=== PATIENT | female | born 2000 | race Hispanic/Latino ===

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

== ENCOUNTER 2019-01-06 15:02 | Emergency (ER) | payer SELFPAY ==
[2019-01-06] MEDS ORDERED: NA CHLORIDE 0.9% 1,000 ML ONE (15:29)
[2019-01-06 15:30] LABS: Urine Blood NEGATIVE (NEG); Urine Glucose NEGATIVE (NEG); Urine Protein NEGATIVE (NEG); Urine Specific Gravity >1.030 (1.005-1.030); Urine pH 5.5 (5.0-7.0)
[2019-01-06 15:46] LABS: Absolute Lymphocytes (CBC) 1.9 K/uL (0.7-4.9); Basophils % 0.6 % (0-1.3); Hematocrit 32.1 % (36.0-45.0); Lymphocytes % 28.8 % (15.3-44.8); MPV 8.2 fL (7.6-11.3)
[2019-01-06] MEDS ORDERED: KETOROLAC 30 MG/ML INJ ONE (15:52)
[2019-01-06 16:19] LABS: ALT/SGPT 21 U/L (12-78); AST/SGOT 11 U/L (15-37); Albumin 3.8 g/dL (3.4-5.0); Alkaline Phosphatase 87 U/L (45-117); BUN Blood Urea Nitrogen 11 mg/dL (7-18); Bicarbonate 30 mmol/L (21-32); Bilirubin Direct 0.1 mg/dL (0-0.2); Bilirubin Total 0.3 mg/dL (0.2-1.0); Glucose Level 96 mg/dL (74-106); Lipase 140 U/L (73-393); Potassium 3.5 mmol/L (3.5-5.1); Protein, Total 7.7 g/dL (6.4-8.2); Sodium Level 141 mmol/L (136-145)
[2019-01-06 16:34] LABS: Urine Bacteria <20 /HPF (<20); Urine Culture Reflex Order REFLEXED; Urine RBC <5 /HPF (NONE SEEN)
--- NOTE | 2019-01-06 18:02 | RAD REPORT ---
EXAM DESCRIPTION: CT - Abdomen Pelvis W Contrast - 01/06/2019 5:50 pm CLINICAL HISTORY: ABD PAIN COMPARISON: CT study December 29 TECHNIQUE: Biphasic, helical CT imaging of the abdomen and pelvis was performed following 100 ml non -ionic IV contrast. Oral contrast was given. All CT scans are performed using dose optimization technique as appropriate and may include automated exposure control or mA/KV adjustment according to patient size. FINDINGS: No suspicious findings in the lung bases. The liver, spleen, and pancreas show no suspicious findings. Gallbladder and biliary tree are also wi thout suspicious finding. Symmetric renal function is seen with no hydronephrosis or suspicious renal mass. No pyelonephritis o r acute parenchymal process. No bladder abnormalities. No adrenal abnormalities. Uterus and ovaries s how no suspicious findings. Physiologic quantity of free fluid is seen in the cul de sac. Ovarian det ail is limited. No dilated bowel loops or bowel wall thickening. Appendix is opacified by contrast proximally. Distal most aspect is difficult to visualize. Acute appendicitis is doubtful. Sigmoid is redundant reaching the anterior mid abdomen level. No free air or pneumatosis. No acute inflammatory stranding. No her scott, mass or bulky lymphadenopathy. No suspicious bony findings. IMPRESSION: No bowel obstruction, free air or surgically emergent finding. Proximal appendix is opac ified by contrast with the distal aspect not well visualized. Acute appendicitis is not suspected. No acute finding. Uterus and ovaries within normal limits for age. Ovarian detail is somewhat limited.
--- NOTE | 2019-01-06 18:23 | ER ---
Nurse's Notes [facility] Name: Florencia No Age: 18 yrs Sex: Female : 2000 Arrival Date: 01/06/2019 Time: 15:05 Bed 28 Private MD: Diagnosis: Urinary tract infection, site not specified;Unspecified abdominal pain Presentation: 01/06 15:08 Presenting complaint: Patient states: intermittent pain to umbilicus area that began ss last night, and is getting worse. Denies fever, N/V/D. Transition of care: patient was not received from another setting of care. Onset of symptoms was January 05, 2019. Risk Assessment: Do you want to hurt yourself or someone else? Patient reports no desire to harm self or others. Initial Sepsis Screen: Does the patient meet any 2 criteria? No. Patient's initial sepsis screen is negative. Does the patient have a suspected source of infection? No. Patient's initial sepsis screen is negative. Care prior to arrival: None. 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 - Social history:: Smoking status: Patient/guardian denies using tobacco. - Ebola Screening: : Patient denies exposure to infectious person Patient denies travel to an Ebola-affected area in the 21 days before illness onset. Screenin:46 Abuse screen: Denies threats or abuse. Nutritional screening: No deficits noted. tr5 Tuberculosis screening: No symptoms or risk factors identified. Fall Risk None identified. Assessment: 15:46 General: Appears uncomfortable. Pain: Complains of pain in umbilical area Pain tr5 currently is 8 out of 10 on a pain scale. Quality of pain is described as crampy, Pain began 1 day ago. Is intermittent. Neuro: Level of Consciousness is awake, alert, obeys commands, Oriented to person, place, time, Informatics Scientist are equal bilaterally Moves all extremities. Cardiovascular: Heart tones present Capillary refill < 3 seconds Pulses are all present. Edema is absent. Respiratory: Airway is patent Respiratory effort is even, unlabored, Respiratory pattern is regular, symmetrical. GI: Bowel sounds present X 4 quads. Abd is soft and non tender X 4 quads. Reports upper abdominal pain. : No signs and/or symptoms were reported regarding the genitourinary system. EENT: No signs and/or symptoms were reported regarding the EENT system. Derm: No signs and/or symptoms reported regarding the dermatologic system. Musculoskeletal: No signs and/or symptoms reported regarding the musculoskeletal system. 17:00 Reassessment: Patient appears in no apparent distress at this time. Patient and/or tr5 family updated on plan of care and expected duration. Pain level reassessed. Patient is alert, oriented x 3, equal unlabored respirations, skin warm/dry/pink. Vital Signs: 15:09 BP 124 / 72; Pulse 96; Resp 16; Temp 97.7(TE); Pulse Ox 100% on R/A; Weight 80.74 kg; ss Height 5 ft. 3 in. (160.02 cm); Pain 8/10; 15:52 BP 97 / 69; Pulse 98; Resp 17; Temp 98.6; Pulse Ox 100% on R/A; mh5 16:54 BP 102 / 64; Pulse 75; Resp 17; Temp 98.6(O); Pulse Ox 98% on R/A; mh5 18:24 BP 98 / 60; Pulse 87; Resp 16; Pulse Ox 98% on R/A; mh5 15:09 Body Mass Index 31.53 (80.74 kg, 160.02 cm) ED Course: 15:05 Patient arrived in ED. mr 15:09 Triage completed. ss 15:09 Arm band placed on right wrist. ss 15:13 Serge Ambrose NP is PHCP. pm1 15:13 Kyle Lee MD is Attending Physician. pm1 15:27 Pawel Hernandez, SHOSHANA is Primary Nurse. tr5 15:46 Bed in low position. Call light in reach. Side rails up X 1. tr5 15:50 Initial lab(s) drawn, by me, sent to lab. Urine collected: clean catch specimen, mh5 cloudy. Inserted saline lock: 22 gauge in right antecubital area, using aseptic technique. 15:51 Urine Microscopic Only Sent. mh5 15:51 Basic Metabolic Panel Sent. mh5 15:51 Creatinine for Radiology Sent. 5 15:51 Hepatic Function Sent. 5 15:51 Lipase Sent. mh5 17:56 CT Abd/Pelvis - PO and IV Contrast In Process Unspecified. EDMS 18:43 No provider procedures requiring assistance completed. IV discontinued. tr5 Administered Medications: 15:41 Drug: NS 0.9% 1000 ml Route: IV; Rate: 1000 ml; Site: right antecubital; tr5 16:50 Follow up: IV Status: Completed infusion; IV Intake: 1000ml tr5 15:42 CANCELLED (Duplicate Order): NS 0.9% 1000 ml IV at 1000 ml once pm1 15:55 Drug: TORadol - Ketorolac 15 mg Route: IVP; Site: right antecubital; tr5 16:50 Follow up: Response: Pain is decreased tr5 18:34 Drug: Rocephin 1 grams Route: IV; Rate: calculated rate; Site: right antecubital; tr5 18:42 Follow up: IV Status: Completed infusion; IV Intake: 50ml tr5 18:42 Drug: [place] 5 mg-325 mg 1 tabs {Note: RASS:0.} Route: PO; tr5 18:43 Follow up: Response: Medication administered at discharge. tr5 Intake: 16:50 IV: 1000ml; Total: 1000ml. tr5 18:42 IV: 50ml; Total: 1050ml. tr5 Outcome: 18:23 Discharge ordered by . pm1 18:43 Discharged to home ambulatory. tr5 18:43 Condition: stable 18:43 Discharge instructions given to patient, family, Instructed on discharge instructions, follow up and referral plans. Demonstrated understanding of instructions, follow-up care, medications, Prescriptions given X 2. 18:45 Patient left the ED. tr5 Signatures: Dispatcher [employer] [facility] Melida Charles Shelby, RN RN ss Marinas, Patrick, NP SENIOR SUPPLY CHAIN ANALYST 1 Gricelda Donnelly [facility] Pawel Hernandez RN RN tr5
--- NOTE | 2019-01-06 18:24 | EDPHYS ---
Physician Documentation [facility] Name: Florencia No Age: 18 yrs Sex: Female : 2000 Arrival Date: 01/06/2019 Time: 15:05 Bed 28 Private MD: ED Physician Kyle Lee HPI: 01/06 15:42 This 18 yrs old Female presents to ER via Ambulatory with complaints of pm1 Abdominal Pain. 15:42 The patient presents with abdominal pain in the periumbilical area. Onset: The pm1 symptoms/episode began/occurred 11 day(s) ago. The symptoms do not radiate. Associated signs and symptoms: Pertinent positives: Dysuria today, Pertinent negatives: nausea, vomiting, and diarrhea, chest pain, fever, shortness of breath. The symptoms are described as sharp. Modifying factors: The symptoms are alleviated by nothing, the symptoms are aggravated by nothing. Severity of pain: in the emergency department the pain is actually worse. The patient has been recently seen at the [facility] Emergency Department, for similar complaints labs were performed, CT scan was performed, was given a prescription for antibiotics, 12/29. 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 - Social history:: Smoking status: Patient/guardian denies using tobacco. - Ebola Screening: : Patient denies exposure to infectious person Patient denies travel to an Ebola-affected area in the 21 days before illness onset. ROS: 15:42 Constitutional: Negative for fever, chills, and weight loss, Eyes: Negative for injury, pm1 pain, redness, and discharge, ENT: Negative for injury, pain, and discharge, Neck: Negative for injury, pain, and swelling, Cardiovascular: Negative for chest pain, palpitations, and edema, Respiratory: Negative for shortness of breath, cough, wheezing, and pleuritic chest pain. 15:42 Back: Negative for injury and pain, MS/Extremity: Negative for injury and deformity, Skin: Negative for injury, rash, and discoloration, Neuro: Negative for headache, weakness, numbness, tingling, and seizure. 15:42 Abdomen/GI: Positive for abdominal pain, Negative for nausea, vomiting, and diarrhea, constipation. 15:42 : Positive for burning with urination. Exam: 15:42 Constitutional: This is a well developed, well nourished patient who is awake, alert, pm1 and in no acute distress. Head/Face: Normocephalic, atraumatic. Neck: Trachea midline, no thyromegaly or masses palpated, and no cervical lymphadenopathy. Supple, full range of motion without nuchal rigidity, or vertebral point tenderness. No Meningismus. Chest/axilla: Normal chest wall appearance and motion. Nontender with no deformity. No lesions are appreciated. Cardiovascular: Regular rate and rhythm with a normal S1 and S2. No gallops, murmurs, or rubs. Normal PMI, no JVD. No pulse deficits. Respiratory: Lungs have equal breath sounds bilaterally, clear to auscultation and percussion. No rales, rhonchi or wheezes noted. No increased work of breathing, no retractions or nasal flaring. 15:42 Back: No spinal tenderness. No costovertebral tenderness. Full range of motion. Skin: Warm, dry with normal turgor. Normal color with no rashes, no lesions, and no evidence of cellulitis. MS/ Extremity: Pulses equal, no cyanosis. Neurovascular intact. Full, normal range of motion. 15:42 Abdomen/GI: Inspection: abdomen appears normal, Bowel sounds: normal, Palpation: soft, mild abdominal tenderness, in the umbilical area, mass, is not appreciated, rebound tenderness, is not appreciated. 15:42 Neuro: Orientation: is normal, Motor: is normal, moves all fours. Vital Signs: 15:09 BP 124 / 72; Pulse 96; Resp 16; Temp 97.7(TE); Pulse Ox 100% on R/A; Weight 80.74 kg; ss Height 5 ft. 3 in. (160.02 cm); Pain 8/10; 15:52 BP 97 / 69; Pulse 98; Resp 17; Temp 98.6; Pulse Ox 100% on R/A; mh5 16:54 BP 102 / 64; Pulse 75; Resp 17; Temp 98.6(O); Pulse Ox 98% on R/A; mh5 18:24 BP 98 / 60; Pulse 87; Resp 16; Pulse Ox 98% on R/A; mh5 15:09 Body Mass Index 31.53 (80.74 kg, 160.02 cm) ss MDM: 15:13 Patient medically screened. pm1 17:08 Data reviewed: vital signs. Data interpreted: Pulse oximetry: on room air is 98 %. pm1 Interpretation: normal. 18:05 Counseling: I had a detailed discussion with the patient and/or guardian regarding: the pm1 historical points, exam findings, and any diagnostic results supporting the discharge/admit diagnosis, lab results, radiology results, the need for outpatient follow up, to return to the emergency department if symptoms worsen or persist or if there are any questions or concerns that arise at home. 18:22 Differential diagnosis: appendicitis, cholecystitis, Cholelithiasis, pancreatitis, pm1 Pyelonephritis, urinary tract infection. 18:22 ED course: Patient previously given prescription for bactrim DS for 5 days. Likely pm1 therapy not long enough to treat UTI. Will give patient Rocephin here in ER and discharge home with Macrobid based on culture result from prior ER visit. Will follow up on culture from today. 18:22 Special discussion: Based on the patient's Hx, exam, and Dx evaluation, there is no pm1 indication for emergent surgery or inpatient Tx. It is understood by the patient/guardian that if the Sx's persist or worsen they need to return immediately for re-evaluation. 01/06 15:16 Order name: Basic Metabolic Panel; Complete Time: 16:26 pm1 01/06 15:16 Order name: CBC with Diff; Complete Time: 15:55 pm1 01/06 15:16 Order name: Creatinine for Radiology; Complete Time: 16:08 pm1 01/06 15:16 Order name: Hepatic Function; Complete Time: 16:26 pm1 01/06 15:16 Order name: Lipase; Complete Time: 16:26 pm1 01/06 15:28 Order name: Urine Dipstick--Ancillary (enter results); Complete Time: 15:41 bd 01/06 15:24 Order name: CT Abd/Pelvis - PO and IV Contrast; Complete Time: 18:22 pm1 01/06 15:28 Order name: Urine --Ancillary (enter results); Complete Time: 15:41 bd 01/06 15:38 Order name: Urine Microscopic Only; Complete Time: 16:35 tr5 01/06 16:36 Order name: Urine Culture EDNH 01/06 15:16 Order name: IV Saline Lock; Complete Time: 15:28 pm1 01/06 15:16 Order name: Labs collected and sent; Complete Time: 15:28 pm1 01/06 15:16 Order name: Urine Dipstick-Ancillary (obtain specimen); Complete Time: 15:51 pm1 01/06 15:16 Order name: Urine Test (obtain specimen); Complete Time: 15:51 pm1 Administered Medications: 15:41 Drug: NS 0.9% 1000 ml Route: IV; Rate: 1000 ml; Site: right antecubital; tr5 16:50 Follow up: IV Status: Completed infusion; IV Intake: 1000ml tr5 15:42 CANCELLED (Duplicate Order): NS 0.9% 1000 ml IV at 1000 ml once pm1 15:55 Drug: TORadol - Ketorolac 15 mg Route: IVP; Site: right antecubital; tr5 16:50 Follow up: Response: Pain is decreased tr5 18:34 Drug: Rocephin 1 grams Route: IV; Rate: calculated rate; Site: right antecubital; tr5 18:42 Follow up: IV Status: Completed infusion; IV Intake: 50ml tr5 18:42 Drug: [place] 5 mg-325 mg 1 tabs {Note: RASS:0.} Route: PO; tr5 18:43 Follow up: Response: Medication administered at discharge. tr5 Disposition: 21:26 Co-signature as Attending Physician, Kyle Lee MD I agree with the assessment and wa plan of care. Disposition: 01/06/19 18:23 Discharged to Home. Impression: Urinary tract infection, site not specified, Unspecified abdominal pain. - Condition is Stable. - Discharge Instructions: Abdominal Pain, Adult, Urinary Tract Infection, Adult. - Prescriptions for Macrobid 100 mg Oral Capsule - take 1 capsule by ORAL route every 12 hours for 10 days; 20 capsule. Tramadol 50 mg Oral Tablet - take 1 tablet by ORAL route every 8 hours as needed; 12 tablet. - Medication Reconciliation Form, Thank You Letter, Antibiotic Education, Prescription Opioid Use, Work release form form. - Follow up: Emergency Department; When: As needed; Reason: Worsening of condition. Follow up: Private Physician; When: 2 - 3 days; Reason: Recheck today's complaints, Continuance of care, Re-evaluation by your physician. - Problem is new. - Symptoms have improved. Signatures: Dispatcher [employer] EDMS Sarai Reid RN RN ss Serge Ambrose, PIE BAKER PIE BAKER pm1 Kyle Lee MD MD wa Rodriguez, Tommie, RN RN tr5 Corrections: (The following items were deleted from the chart) 15:42 15:42 NS 0.9% 1000 ml IV at 1000 ml once ordered. pm1 pm1 18:45 18:23 01/06/2019 18:23 Discharged to Home. Impression: Urinary tract infection, site tr5 not specified; Unspecified abdominal pain. Condition is Stable. Forms are Medication Reconciliation Form, Thank You Letter, Antibiotic Education, Prescription Opioid Use. Follow up: Emergency Department; When: As needed; Reason: Worsening of condition. Follow up: Private Physician; When: 2 - 3 days; Reason: Recheck today's complaints, Continuance of care, Re-evaluation by your physician. Problem is new. Symptoms have improved. pm1
[2019-01-06] MEDS ORDERED: CEFTRIAXONE/SWI 1gm 1 GM/10 ML SYR ONE (18:29)
[2019-01-06] MEDS ORDERED: HYDROCODONE/APAP 5/325 MG TAB ONE (18:37)
[2019-01-06 19:26] VITALS: TEMP 98.6
[2019-01-06 19:27] VITALS: O2SAT 98
[2019-01-06 19:29] VITALS: BP 98/60
== END 2019-01-06 18:45 | disposition home or self-care (01) ==
LOC: ER 15:02
DX: N39.0 Urinary tract infection, site not specified (principal)
CPT/HCPCS: 36415; 74177; 80048; 80076; 81003; 81015; 81025; 83690; 85025; 87086; 87088; 96361; 96374; 96375; 99284; J0696; J7030; Q9967

== ENCOUNTER 2019-05-21 | Emergency (ER) | payer SELFPAY ==
--- OUTSIDE RECORDS SUMMARY | 2019-05-21 22:04 | XMS REPORT ---
:2000 [facility] Address [address] [place] [place] [address] Care Team Providers Name Role Phone Unavailable Unavailable Unavailable Problems This patient has no known problems. Allergies, Adverse Reactions, Alerts This patient has no known allergies or adverse reactions. Medications This patient has no known medications.
--- OUTSIDE RECORDS SUMMARY | 2019-05-21 22:04 | XMS REPORT | Summary of Care ---
:2000 Author Organization [facility] - Health Address [address] [place] [address] Care Team Providers Name Role Phone Pcp, Patient Does Not Have A Primary Care Provider Encounter Details Date Type Department Care Team Description 04/25/2019 Orders Only [facility] Doctor Unassigned, No [address] [facility] [place] [address] [address] [place] [address] Allergies No Known Allergiesdocumented as of this encounter (statuses as of 04/25/2019) Medications Medication Sig Dispensed Refills Start Date End Date Status codeine-guaifenesin Take 10 mL by mouth 300 mL 0 12/18/2018 Active 10-100 mg/5 mL every 6 (six) hours solutionIndications: as needed for Persistent cough for Cough. 3 weeks or longer, Acute bronchitis, unspecified organism albuterol 90 Inhale 2 Puffs 8.5 g 0 12/18/2018 Active mcg/actuation every 6 (six) hours inhalerIndications: as needed for Persistent cough for Wheezing, Shortness 3 weeks or longer, of Breath or Chest Acute bronchitis, tightness. unspecified organism documented as of this encounter (statuses as of 04/25/2019) Active Problems No known active problemsdocumented as of this encounter (statuses as of 2019) Social History Tobacco Use Types Packs/Day Years Used Date Never Assessed Sex Assigned at Date Recorded Not on file Job Start Date Occupation Industry Not on file Not on file Not on file Travel History Travel Start Travel End No recent travel history available. documented as of this encounter Last Filed Vital Signs Not on filedocumented in this encounter Plan of Treatment Health Maintenance Due Date Last Done Comments VARICELLA VACCINES (1 of 2 - 2-dose 09/28/2000 childhood series) MENINGOCOCCAL B VACCINES (1 of 2 - 09/28/2009 Risk Bexsero 2-dose series) DTaP,Tdap,and Td Vaccines (1 - 09/28/2010 Tdap) HPV VACCINES (1 - Female 2-dose 09/28/2010 series) WELL CARE VISIT: 12-21 YEARS 2011 (yearly) CHLAMYDIA SCREENING 2015 INFLUENZA VACCINE (#1) 2018 MENINGOCOCCAL VACCINE Aged Out No longer eligible based on patient's age to complete this topic PNEUMOCOCCAL 0-64 YEARS COMBINED Aged Out No longer eligible based on SERIES patient's age to complete this topic documented as of this encounter Procedures Procedure Name Priority Date/Time Associated Diagnosis Comments CONSENT/REFUSAL FOR Routine 04/25/2019 4:38 PM 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
--- OUTSIDE RECORDS SUMMARY | 2019-05-21 22:04 | XMS REPORT | Summary of Care ---
:2000 Author Organization [facility] Address [address] [place] [id number] Care Team Providers Name Role Phone Pcp, Patient Does Not Have A Primary Care Provider Reason for Referral (MACIE) Status Reason Specialty Diagnoses / Referred By Referred To Procedures Contact Contact New Request SENAIT-SURGERY Diagnoses Bilateral mastodynia Keanu Mcdonald, Procedures Discharge Follow-Up: Specialty Service SENAIT-SURGERY; 3-5 Days MD Willis [address] [address] Reason for Visit Reason Comments Skin Problem Auth/Cert Status Reason Specialty Diagnoses / Referred By Referred To Procedures Contact Contact [facility] [address] [place] [address] [place] [address] Encounter Details Date Type Department Care Team Description 04/25/2019 Emergency [facility]-Emergency Keanu Mcdonald, Bilateral mastodynia Department (Primary Dx) [address] [place] [address] [address] [place] [address] [facility] [phone] [place], [place] [id number] Allergies No Known Allergiesdocumented as of this [...] or Chest Acute bronchitis, tightness. unspecified organism naproxen sodium 550 Take 1 tablet by 14 tablet 0 04/25/2019 Active mg tabletIndications: mouth 2 (two) times Bilateral mastodynia daily with meals. documented as of this encounter (statuses as [...] of this encounter Last Filed Vital Signs Vital Sign Reading Time Taken Comments Blood Pressure 132/77 04/25/2019 4:48 PM VALVE TESTER Pulse 97 04/25/2019 4:48 PM VALVE TESTER Temperature 37.1 C (98.7 F) 04/25/2019 4:48 PM VALVE TESTER Respiratory Rate 16 04/25/2019 4:48 PM VALVE TESTER Oxygen Saturation 99% 04/25/2019 4:48 PM VALVE TESTER Inhaled Oxygen Concentration - - Weight 72.6 kg (160 lb) 04/25/2019 4:48 PM VALVE TESTER Height 160 cm (5' 3") 04/25/2019 4:48 PM VALVE TESTER Body Mass Index 28.34 04/25/2019 4:48 PM VALVE TESTER documented in this encounter Discharge Instructions Keanu Campos MD - 04/25/2019 DIAGNOSIS Diagnoses that have been ruled out: None Diagnoses that are still under consideration: None Final diagnoses: Bilateral mastodynia NO LIFE-THREATENING FINDINGS ON TODAY'S EXAM. PROCEDURES IN THE ER TODAY: No orders of the defined types were placed in this encounter. MEDICATIONS ADMINISTERED IN THE ER TODAY AND DISCHARGE MEDICATIONS: Orders Placed This Encounter Medications naproxen sodium 550 mg tablet FOLLOW-UP RECOMMENDATIONS: RECOMMEND FOLLOW-UP WITH YOUR PRIMARY CARE PROVIDER OR BREAST SURGERY CLINIC, [facility] IN 2-5DAYS, DISCUSSED MAY FOLLOW-UP WITH A PROVIDER OF YOUR CHOICE, SUCH : 1. A PHYSICIAN OF YOUR CHOICE 2. [facility], . LOCATIONS IN [facility] 3. [facility], [address] [place], [place]; OR, IF YOU WISH TO FOLLOW-UP WITHIN THE [facility], MAY TRY THESE OPTIONS (CLINIC APPOINTMENTS AVAILABLE ON VQCN-DG-IFOR BASIS): 1. SCHEDULE AN APPOINTMENT ONLINE AT [email or web address] 2. OR CALL THE [facility] AT OR 3. OR CALL YOUR [facility] PHYSICIAN'S OFFICE DIRECTLY IF YOU ARE ALREADY AN ESTABLISHED [facility] PATIENT. RETURN TO ER FOR WORSENING OF SYMPTOMS documented in this encounter Plan of Treatment Health [...] Procedure Name Priority Date/Time Associated Diagnosis Comments NOTICE OF PRIVACY Routine 04/25/2019 4:39 PM VALVE TESTER PRACTICES documented in this encounter Results Not on filedocumented in this encounter Visit Diagnoses Diagnosis Bilateral mastodynia - Primary documented in this encounter
--- NOTE | 2019-05-21 22:53 | ER ---
Nurse's Notes [facility] Name: Florencia No Age: 18 yrs Sex: Female : 2000 Arrival Date: 05/21/2019 Time: 22:04 Bed 23 Private MD: Diagnosis: Rash and other nonspecific skin eruption Presentation: 05/20 22:17 Chief complaint: Patient states: some kind of rash to breast worse on the left than the bb right pt has tried multiple otc topical agents with no effect pt states rash is itchy but not painful. Coronavirus screen: The patient has NOT traveled to a country currently being monitored by the [facility] within the last 14 days. Proceed with normal triage procedures. Ebola Screen: No symptoms or risks identified at this time. Initial Sepsis Screen: Does the patient meet any 2 criteria? No. Patient's initial sepsis screen is negative. Does the patient have a suspected source of infection? No. Patient's initial sepsis screen is negative. Risk Assessment: Do you want to hurt yourself or someone else? Patient reports no desire to harm self or others. Onset of symptoms was May 14, 2019. 22:17 Method Of Arrival: Ambulatory bb 22:17 Acuity: BRUCE 4 bb Triage Assessment: 22:54 General: Appears in no apparent distress. Behavior is calm, cooperative, appropriate vc for age. Pain: Complains of pain in chest. 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 - Social history:: Smoking status: unknown. Screenin:53 Abuse screen: Denies threats or abuse. Nutritional screening: No deficits noted. vc Tuberculosis screening: No symptoms or risk factors identified. Fall Risk None identified. Assessment: 22:54 General: Appears in no apparent distress. uncomfortable, Behavior is cooperative, vc appropriate for age, anxious. Pain: Complains of pain in chest. Neuro: Level of Consciousness is awake, alert, obeys commands, Oriented to person, place, time, situation, Appropriate for age. Cardiovascular: Capillary refill < 3 seconds Patient's skin is warm and dry. Respiratory: Airway is patent Respiratory effort is even, unlabored, Respiratory pattern is regular, symmetrical. GI: No signs and/or symptoms were reported involving the gastrointestinal system. : EENT: No signs and/or symptoms were reported regarding the EENT system. Derm: Rash noted that is itchy, on right breast and left breast. 23:01 Reassessment: chaperoned provider for breast exam. vc Vital Signs: 22:17 BP 119 / 78; Pulse 98; Resp 16 S; Temp 98.7(O); Pulse Ox 100% on R/A; Weight 72.57 kg bb (R); Height 5 ft. 3 in. (160.02 cm) (R); Pain 0/10; 22:17 Body Mass Index 28.34 (72.57 kg, 160.02 cm) bb ED Course: 22:04 Patient arrived in ED. cl3 22:20 Triage completed. bb 22:20 Arm band placed on Patient placed in an exam room, on a stretcher, on pulse oximetry. bb 22:27 Esa Mcbride PA is PHCP. [facility] 22:27 John Malik MD is Attending Physician. [facility] 22:30 Nina Jerez, SHOSHANA is Primary Nurse. vc 22:54 Bed in low position. Call light in reach. vc 23:01 No provider procedures requiring assistance completed. Patient did not have IV access vc during this emergency room visit. Administered Medications: No medications were administered Outcome: 22:52 Discharge ordered by . [facility] 23:01 Discharged to home ambulatory. vc 23:01 Condition: good 23:01 Discharge instructions given to patient, Instructed on discharge instructions, follow up and referral plans. medication usage, Demonstrated understanding of instructions, follow-up care, medications. 23:06 Patient left the ED. vc Signatures: Esa Mcbride PA PA jmm Ballard, Brenda, RN RN bb Lewis, Charde 3 Nina Jerez RN RN vc
--- NOTE | 2019-05-21 22:53 | EDPHYS ---
Physician Documentation [facility] Name: Florencia No Age: 18 yrs Sex: Female : 2000 Arrival Date: 05/21/2019 Time: 22:04 Bed 23 Private MD: ED Physician John Malik HPI: 05/20 22:49 This 18 yrs old Female presents to ER via Ambulatory with complaints of Breast jmm Problem. 22:49 The patient's rash thought to be caused by an unknown cause. The rash is located on the jmm chest. Onset: The symptoms/episode began/occurred gradually, 4 day(s) ago. Associated signs and symptoms: Pertinent positives: itching, Pertinent negatives: fever, Pain swelling of lips, swelling of throat, swelling of tongue, vomiting. This is a 18 year old female with no chronic medical conditions that presents to the ED with complaints of rash to her breasts. Patient denies pain but complains of itch. Patient has used otc creams with no relief. Patient denies fever. . 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 - Social history:: Smoking status: unknown. ROS: 22:49 Constitutional: Negative for fever, chills, and weight loss, Cardiovascular: Negative jmm for chest pain, palpitations, and edema, Respiratory: Negative for shortness of breath, cough, wheezing, and pleuritic chest pain. 22:49 Skin: Positive for rash. 22:49 All other systems are negative. Exam: 22:49 Constitutional: This is a well developed, well nourished patient who is awake, alert, jmm and in no acute distress. Head/Face: atraumatic. Eyes: EOMI, no conjunctival erythema appreciated ENT: Moist Mucus Membranes Neck: Trachea midline, Supple 22:49 Cardiovascular: Regular rate and rhythm. No edema appreciated Respiratory: Normal respirations, no respiratory distress appreciated Abdomen/GI: Non distended, soft Back: Normal ROM 22:49 Chest/axilla: Breasts: rash, that is moderate, of the right breast. 22:49 Skin: on the chest. 22:49 Neuro: Orientation: is normal, Mentation: is normal, Memory: is normal. 22:49 Psych: Behavior/mood is pleasant, cooperative. Vital Signs: 22:17 BP 119 / 78; Pulse 98; Resp 16 S; Temp 98.7(O); Pulse Ox 100% on R/A; Weight 72.57 kg bb (R); Height 5 ft. 3 in. (160.02 cm) (R); Pain 0/10; 22:17 Body Mass Index 28.34 (72.57 kg, 160.02 cm) bb MDM: 22:29 Patient medically screened. [facility] 22:51 Data reviewed: vital signs, nurses notes. Counseling: I had a detailed discussion with nini the patient and/or guardian regarding: the historical points, exam findings, and any diagnostic results supporting the discharge/admit diagnosis, the need for outpatient follow up, to return to the emergency department if symptoms worsen or persist or if there are any questions or concerns that arise at home. ED course: Patient is alert and non toxic in appearance in the ED. Patient advised to follow up with derm for further evaluation. Patient understood and agrees with the plan of care. . Administered Medications: No medications were administered Disposition: 05/21 07:47 Co-signature as Attending Physician, John Malik MD I agree with the assessment and [facility] plan of care. Disposition: 05/21/19 22:52 Discharged to Home. Impression: Rash and other nonspecific skin eruption. - Condition is Stable. - Discharge Instructions: Rash, Body Ringworm. - Prescriptions for Clotrimazole 1 % Topical Cream - Apply to affected area 1 application by TOPICAL route every 12 hours; 15 gram. - Medication Reconciliation Form, Thank You Letter, Antibiotic Education, Prescription Opioid Use, Work release form form. - Follow up: Private Physician; When: 2 - 3 days; Reason: Recheck today's complaints, Continuance of care, Re-evaluation by your physician. Signatures: John Malik MD MD cha Mickail, Joel, PA PA jmm Ballard, Brenda, RN RN Nina Colon RN RN vc Corrections: (The following items were deleted from the chart) 05/20 23:06 22:52 05/21/2019 22:52 Discharged to Home. Impression: Rash and other nonspecific skin vc eruption. Condition is Stable. Forms are Medication Reconciliation Form, Thank You Letter, Antibiotic Education, Prescription Opioid Use. Follow up: Private Physician; When: 2 - 3 days; Reason: Recheck today's complaints, Continuance of care, Re-evaluation by your physician. nini
== END 2019-05-21 23:06 | disposition home or self-care (01) ==
DX: R21 Rash and other nonspecific skin eruption (principal)
CPT/HCPCS: 99283

== ENCOUNTER 2019-06-20 19:28 | Emergency (ER) | payer SELFPAY ==
--- OUTSIDE RECORDS SUMMARY | 2019-06-20 19:30 | XMS REPORT ---
:2000 Author Organization [facility] t Address [address] [place] [address] Care Team Providers Name Role Phone Unavailable Unavailable Unavailable Problems This patient has no known problems. Allergies, Adverse Reactions, Alerts This patient has no known allergies or adverse reactions. Medications This patient has no known medications.
[2019-06-20 20:25] LABS: Absolute Lymphocytes (CBC) 1.9 K/uL (0.7-4.9); Basophils % 0.4 % (0-1.3); Hematocrit 34.1 % (36.0-45.0); Lymphocytes % 27.2 % (15.3-44.8); MPV 8.8 fL (7.6-11.3); RBC Red Blood Cell Count 4.54 M/uL (3.86-4.86)
[2019-06-20 20:38] LABS: Urine Bacteria <20 /HPF (<20); Urine RBC <5 /HPF (NONE SEEN)
[2019-06-20 20:39] LABS: Urine Blood NEGATIVE (NEG); Urine Glucose NEGATIVE (NEG); Urine Protein NEGATIVE (NEG); Urine Specific Gravity 1.025 (1.005-1.030); Urine pH 7.5 (5.0-7.0)
[2019-06-20 20:39] LABS: Urine Culture Reflex Order REFLEXED; Urine Mucus 2+ /HPF (NONE SEEN)
[2019-06-20 20:50] LABS: ALT/SGPT 19 U/L (12-78); AST/SGOT 9 U/L (15-37); Alkaline Phosphatase 86 U/L (45-117); BUN Blood Urea Nitrogen 9 mg/dL (7-18); Bicarbonate 25 mmol/L (21-32); Bilirubin Direct < 0.1 mg/dL (0-0.2); Bilirubin Total 0.3 mg/dL (0.2-1.0); Glucose Level 84 mg/dL (74-106); Lipase 158 U/L (73-393); Potassium 3.9 mmol/L (3.5-5.1); Protein, Total 7.8 g/dL (6.4-8.2); Sodium Level 139 mmol/L (136-145)
--- NOTE | 2019-06-20 20:58 | RAD REPORT ---
EXAM DESCRIPTION: US - Abdomen Exam Limited - 06/20/2019 8:49 pm CLINICAL HISTORY: Abdominal pain. COMPARISON: None. FINDINGS: The gallbladder wall is not thickened. A gallstone is not seen. The biliary tree is normal caliber. IMPRESSION: Unremarkable gallbladder ultrasound.
--- NOTE | 2019-06-20 21:48 | RAD REPORT ---
EXAM DESCRIPTION: CT - Abdomen Pelvis W Contrast - 06/20/2019 9:29 pm CLINICAL HISTORY: Abdominal pain COMPARISON: 2018 TECHNIQUE: Computed axial tomography of the abdomen pelvis was obtained. 100 cc Isovue-300 was admin istered intravenously. Oral contrast was not requested which limits evaluation of bowel. All CT scans are performed using dose optimization technique as appropriate and may include automated exposure control or mA/KV adjustment according to patient size. FINDINGS: The liver, spleen, pancreas, adrenal and kidneys appear unremarkable. There is no evidence of diverticulitis. Normal appendix 24 millimeter left ovarian cyst without significant free fluid IMPRESSION: 24 millimeter left ovarian cyst without significant free fluid
--- NOTE | 2019-06-20 21:56 | EDPHYS ---
Physician Documentation [facility] Name: Florencia No Age: 18 yrs Sex: Female : 2000 Arrival Date: 06/20/2019 Time: 19:30 Bed 26 Private MD: ED Physician Gabriel John HPI: 06/19 20:05 This 18 yrs old Female presents to ER via Ambulatory with complaints of cp Abdominal Pain. 20:05 The patient presents with abdominal pain in the right upper quadrant. Onset: The cp symptoms/episode began/occurred 1 week(s) ago. The symptoms do not radiate. Associated signs and symptoms: Pertinent negatives: anorexia, constipation, diarrhea, fever, vomiting. The symptoms are described as sharp. 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 - Social history:: Smoking status: Patient denies any tobacco usage or history of. ROS: 20:10 Constitutional: Negative for body aches, chills, fever, poor PO intake. cp 20:10 Eyes: Negative for injury, pain, redness, and discharge. cp 20:10 ENT: Negative for drainage from ear(s), ear pain, sore throat, difficulty swallowing, difficulty handling secretions. 20:10 Cardiovascular: Negative for chest pain. 20:10 Respiratory: Negative for cough, shortness of breath, wheezing. 20:10 Abdomen/GI: Positive for abdominal pain, Negative for vomiting, diarrhea, constipation, anorexia. 20:10 : Positive for urinary frequency, burning with urination, Negative for pelvic pain, vaginal bleeding, vaginal discharge. 20:10 Skin: Negative for rash. 20:10 All other systems are negative. Exam: 20:15 Constitutional: The patient appears in no acute distress, alert, awake, non-toxic, well cp developed, well nourished. 20:15 Head/Face: Normocephalic, atraumatic. cp 20:15 Eyes: Periorbital structures: appear normal, Conjunctiva: normal, no exudate, no injection, Sclera: no appreciated abnormality, Lids and lashes: appear normal, bilaterally. 20:15 ENT: External ear(s): are unremarkable, Nose: is normal, Mouth: is normal, Posterior pharynx: is normal, airway is patent, no erythema, no exudate. 20:15 Chest/axilla: Inspection: normal, Palpation: is normal, no crepitus, no tenderness. 20:15 Cardiovascular: Rate: normal, Rhythm: regular. 20:15 Respiratory: the patient does not display signs of respiratory distress, Respirations: normal, no use of accessory muscles, labored breathing, is not present, Breath sounds: are clear throughout, no decreased breath sounds, no stridor, no wheezing. 20:15 Abdomen/GI: Inspection: abdomen appears normal, Bowel sounds: active, all quadrants, Palpation: soft, in all quadrants, mild abdominal tenderness, in the right upper quadrant and right lower quadrant, rebound tenderness, is not appreciated, voluntary guarding, is not appreciated, involuntary guarding, is not appreciated. 20:15 Back: CVA tenderness, is absent. Vital Signs: 19:33 BP 125 / 85; Pulse 94; Resp 17 S; Temp 98.1(O); Pulse Ox 100% on R/A; Weight 79.38 kg ca1 (R); Height 5 ft. 3 in. (160.02 cm) (R); Pain 4/10; 21:14 BP 118 / 64; Pulse 80; Resp 14; Temp 98.0(O); Pulse Ox 100% on R/A; Pain 4/10; ls4 21:40 BP 125 / 71; Pulse 83; Resp 16 S; Pulse Ox 100% on R/A; ca1 19:33 Body Mass Index 31.00 (79.38 kg, 160.02 cm) ca1 MDM: 19:54 Patient medically screened. cp 21:00 Differential diagnosis: appendicitis, cholecystitis, Cholelithiasis, non-specific abd cp pain, Ovarian Torsion, Ureterolithiasis, urinary tract infection. 21:54 Data reviewed: vital signs, nurses notes, lab test result(s), radiologic studies, CT cp scan, ultrasound. 21:54 Special discussion: Based on the patient's Hx, exam, and Dx evaluation, there is no cp indication for emergent surgery or inpatient Tx. It is understood by the patient/guardian that if the Sx's persist or worsen they need to return immediately for re-evaluation. 06/19 20:01 Order name: Basic Metabolic Panel; Complete Time: 21:02 cp 06/19 21:02 Interpretation: Normal except: CL 108. cp 06/19 20:01 Order name: CBC with Diff; Complete Time: 21:02 cp 06/19 21:02 Interpretation: Normal except: HGB 10.8; HCT 34.1; MCV 75.0; MCH 23.8; MCHC 31.7; RDW cp 17.3. 06/19 20:01 Order name: Creatinine for Radiology; Complete Time: 21:02 cp 06/19 20:01 Order name: Hepatic Function; Complete Time: 21:02 cp 06/19 21:04 Interpretation: Normal except: AST 9; GLOB 3.8. cp 06/19 20:01 Order name: Lipase; Complete Time: 21:02 cp 06/19 20:02 Order name: Urine Microscopic Only; Complete Time: 21:02 cp 06/19 21:04 Interpretation: Normal except: UWBC 5-10; SQEPI 10-20. cp 06/19 20:01 Order name: IV Saline Lock; Complete Time: 20:06 cp 06/19 20:01 Order name: Labs collected and sent; Complete Time: 20:06 cp 06/19 20:01 Order name: US Abdomen Limited: RUQ pain; Complete Time: 21:02 cp 06/19 20:14 Order name: Urine Dipstick--Ancillary (enter results); Complete Time: 21:02 ds4 06/19 21:02 Interpretation: Normal except: UPH 7.5; UESTR TRACE. cp 06/19 20:14 Order name: Urine --Ancillary (enter results); Complete Time: 21:02 ds4 06/19 20:40 Order name: Urine Culture EDAR 06/19 21:04 Order name: CT Abd/Pelvis - IV Contrast Only; Complete Time: 21:56 cp 06/19 20:01 Order name: Urine Test (obtain specimen); Complete Time: 20:06 cp 06/19 20:01 Order name: Urine Dipstick-Ancillary (obtain specimen); Complete Time: 20:06 cp 06/19 20:01 Order name: NPO; Complete Time: 20:06 cp Administered Medications: 22:02 Drug: Bactrim (160 mg-800 mg (DS) 1 tablet Route: PO; ca1 22:08 Follow up: Response: No adverse reaction; Medication administered at discharge. ca1 Disposition: 06/20 00:05 Co-signature as Attending Physician, Gabriel John MD I agree with the assessment and 4 plan of care. Disposition: 06/20/19 21:55 Discharged to Home. Impression: Unspecified abdominal pain, Dysuria. - Condition is Stable. - Discharge Instructions: Abdominal Pain, Adult, Dysuria. - Prescriptions for Bactrim DS 800- 160 mg Oral Tablet - take 1 tablet by ORAL route every 12 hours for 5 days; 10 tablet. - Medication Reconciliation Form, Thank You Letter, Antibiotic Education, Prescription Opioid Use, Work release form form. - Follow up: Private Physician; When: 2 - 3 days; Reason: Worsening of condition. - Problem is new. - Symptoms have improved. Signatures: Dispatcher [employer] EDMarilyn Hernandez RN RN John Santana PA PA cp Wadley, Terrence, MD MD 4 Corina Riley RN RN ca1 Corrections: (The following items were deleted from the chart) 06/19 22:10 21:55 06/20/2019 21:55 Discharged to Home. Impression: Unspecified abdominal pain; fc Dysuria. Condition is Stable. Forms are Medication Reconciliation Form, Thank You Letter, Antibiotic Education, Prescription Opioid Use. Follow up: Private Physician; When: 2 - 3 days; Reason: Worsening of condition. Problem is new. Symptoms have improved. cp
--- NOTE | 2019-06-20 21:56 | ER ---
Nurse's Notes [facility] Name: Florencia No Age: 18 yrs Sex: Female : 2000 Arrival Date: 06/20/2019 Time: 19:30 Bed 26 Private MD: Diagnosis: Unspecified abdominal pain;Dysuria Presentation: 06/19 19:33 Chief complaint: Patient states: RLQ pain since 2 weeks ago. Reports burning with ca1 urination, urinary urgency and frequency, vaginal itching. Denies fever. Coronavirus screen: Proceed with normal triage. Patient denies a cough. Patient denies shortness of breath or difficulty breathing. Patient denies measured and/or subjective temperature greater than 100.4F prior to today's visit. Patient denies travel on a cruise ship or to a country the [facility] currently lists as an affected area. Patient denies contact with known and/or suspected case of COVID-19. Ebola Screen: Patient negative for fever greater than or equal to 101.5 degrees Fahrenheit, and additional compatible Ebola Virus Disease symptoms Patient denies exposure to infectious person. Patient denies travel to an Ebola-affected area in the 21 days before illness onset. No symptoms or risks identified at this time. Initial Sepsis Screen: Does the patient meet any 2 criteria? No. Patient's initial sepsis screen is negative. Does the patient have a suspected source of infection? No. Patient's initial sepsis screen is negative. Risk Assessment: Do you want to hurt yourself or someone else? Patient reports no desire to harm self or others. Onset of symptoms was June 20, 2019. 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 - Social history:: Smoking status: Patient denies any tobacco usage or history of. Screenin:40 Abuse screen: Denies threats or abuse. Denies injuries from another. Nutritional ca1 screening: No deficits noted. Tuberculosis screening: No symptoms or risk factors identified. Fall Risk None identified. Assessment: 19:40 General: Appears in no apparent distress. comfortable, Behavior is calm, cooperative, ca1 appropriate for age. Pain: Complains of pain in right lower quadrant Pain currently is 5 out of 10 on a pain scale. Quality of pain is described as sharp, Is intermittent. Neuro: Level of Consciousness is awake, alert, obeys commands, Oriented to person, place, time, situation, Appropriate for age. Cardiovascular: Heart tones S1 S2 present Capillary refill < 3 seconds Patient's skin is warm and dry. Respiratory: Airway is patent Respiratory effort is even, unlabored, Respiratory pattern is regular, symmetrical, Breath sounds are clear bilaterally. GI: Abdomen is round non-distended, Bowel sounds present X 4 quads. Abd is soft and non tender X 4 quads. : Reports burning with urination, urgency, urinary frequency, vaginal itching. EENT: No signs and/or symptoms were reported regarding the EENT system. Derm: Skin is intact, is healthy with good turgor, Skin is pink, warm \T\ dry. Musculoskeletal: Circulation, motion, and sensation intact. Capillary refill < 3 seconds. 20:06 Reassessment: Instructed on NPO. ca1 20:40 Reassessment: Patient appears in no apparent distress at this time. Patient and/or ca1 family updated on plan of care and expected duration. Pain level reassessed. Patient is alert, oriented x 3, equal unlabored respirations, skin warm/dry/pink. 21:40 Reassessment: Patient appears in no apparent distress at this time. Patient and/or ca1 family updated on plan of care and expected duration. Pain level reassessed. Patient is alert, oriented x 3, equal unlabored respirations, skin warm/dry/pink. Vital Signs: 19:33 BP 125 / 85; Pulse 94; Resp 17 S; Temp 98.1(O); Pulse Ox 100% on R/A; Weight 79.38 kg ca1 (R); Height 5 ft. 3 in. (160.02 cm) (R); Pain 4/10; 21:14 BP 118 / 64; Pulse 80; Resp 14; Temp 98.0(O); Pulse Ox 100% on R/A; Pain 4/10; ls4 21:40 BP 125 / 71; Pulse 83; Resp 16 S; Pulse Ox 100% on R/A; ca1 19:33 Body Mass Index 31.00 (79.38 kg, 160.02 cm) ca1 ED Course: 19:30 Patient arrived in ED. cl3 19:36 Triage completed. ca1 19:36 Arm band placed on right wrist. ca1 19:39 John Santana PA is PHCP. cp 19:39 Nura Fonseca MD is Attending Physician. cp 19:40 Patient has correct armband on for positive identification. Bed in low position. Call ca1 light in reach. Side rails up X 1. Pulse ox on. NIBP on. 19:40 No provider procedures requiring assistance completed. ca1 19:54 Gabriel John MD is Attending Physician. cp 19:55 Inserted saline lock: 22 gauge in right antecubital area, using aseptic technique. ds4 Blood collected. Missed attempt(s): 20 gauge in left antecubital area. Bleeding controlled, band aid applied, catheter tip intact. 20:11 Urine Microscopic Only Sent. ds4 20:11 Basic Metabolic Panel Sent. ds4 20:11 Lipase Sent. ds4 20:11 Hepatic Function Sent. ds4 20:11 Creatinine for Radiology Sent. ds4 20:11 CBC with Diff Sent. ds4 20:47 US Abdomen Limited: RUQ pain In Process Unspecified. EDMS 21:29 CT Abd/Pelvis - IV Contrast Only In Process Unspecified. EDMS 21:52 Urine Culture Sent. ds4 22:07 Corina Riley, RN is Primary Nurse. ca1 22:08 IV discontinued, intact, bleeding controlled, No redness/swelling at site. Pressure ca1 dressing applied. Administered Medications: 22:02 Drug: Bactrim (160 mg-800 mg (DS) 1 tablet Route: PO; ca1 22:08 Follow up: Response: No adverse reaction; Medication administered at discharge. ca1 Outcome: 21:55 Discharge ordered by . cp 22:08 Discharged to home ambulatory. ca1 22:08 Condition: stable 22:08 Discharge instructions given to patient, Instructed on discharge instructions, follow up and referral plans. medication usage, Demonstrated understanding of instructions, follow-up care, medications, Prescriptions given X 1. 22:10 Patient left the ED. fc Addendum: 06/23/2019 07:41 Addendum: Culture Results: Positive urine culture. No further action required. Bacteria h b sensitive to prescribed antibiotic. Signatures: Dispatcher [employer] EDMS Marilyn Hidalgo RN RN Deacon Wright ds4 John Santana PA PA cp Baxter, Heather, RN RN Yahaira Gomes RN RN ls4 Corina Riley RN RN ca1 Jaya Maguire cl3 Corrections: (The following items were deleted from the chart) 06/19 20:08 19:33 Chief complaint: Patient states: RLQ pain since 2 weeks ago. Reports burning with ca1 urination, urinary urgency and frequency, vaginal itching. Denies fever ca1
[2019-06-20] MEDS ORDERED: SMZ./TMP. 800/160 MG TABLET ONE (22:08)
[2019-06-20 22:31] VITALS: O2SAT 100
[2019-06-20 22:32] VITALS: TEMP 98
[2019-06-20 22:34] VITALS: BP 125/71
== END 2019-06-20 22:10 | disposition home or self-care (01) ==
LOC: ER 19:28
DX: R30.0 Dysuria (principal)
CPT/HCPCS: 36415; 74177; 76705; 80048; 80076; 81003; 81015; 81025; 83690; 85025; 87077; 87086; 87088; 87186; 99284; Q9967

== ENCOUNTER 2019-07-27 21:03 | Emergency (ER) | payer SELFPAY ==
--- OUTSIDE RECORDS SUMMARY | 2019-07-27 21:05 | XMS REPORT ---
:2000 Author Organization [facility] t Address [address] [place] [place] [address] Care Team Providers Name Role Phone Gracie Mcdonald MD Attending Clinician Doctor Unassigned, Name Attending Clinician Unavailable Chantal Ngo Attending Clinician Problems This patient has no known problems. Allergies, Adverse Reactions, Alerts This patient has no known allergies or adverse reactions. Medications This patient has no known medications. Procedures This patient has no known procedures. Encounters Start End Encounter Admission Attending Care Care Encounter Source Date/Time Date/Time Type Type Clinicians Facility Department ID 2019-04-25 2019-04-25 Emergency Tamara [facility] [id number] 16:50:24 17:51:00 Keanu Bowman [place] [id number] [place] [id number] [place] [id number] 2019-04-25 2019-04-25 Orders Doctor FOWLER [id number] 00:00:00 00:00:00 Only Unassigned, [place] [id number] [place] [facility] [id number] 2018-10-07 2018-10-07 Emergency MarthakiraRUTH [id number] 23:18:07 23:56:00 Rondatravis Yun [id number] [place] [id number] [place] [address] [id number] Results This patient has no known results.
[2019-07-27 22:11] LABS: Urine Blood TRACE (NEG); Urine Glucose NEGATIVE (NEG); Urine Protein NEGATIVE (NEG); Urine pH 6.5 (5.0-7.0)
--- NOTE | 2019-07-27 22:39 | ER ---
Nurse's Notes [facility] Name: Florencia No Age: 18 yrs Sex: Female : 2000 Arrival Date: 07/27/2019 Time: 21:05 Bed 14 Private MD: Diagnosis: Low back pain;Urinary tract infection, site not specified Presentation: 07/26 21:22 Chief complaint: Patient states: Mid low back pain for 3 days getting progressively ll1 worse. No known trauma or specific injury. Coronavirus screen: Proceed with normal triage. Patient denies a cough. Patient denies shortness of breath or difficulty breathing. Patient denies measured and/or subjective temperature greater than 100.4F prior to today's visit. Patient denies travel on a cruise ship or to a country the [facility] currently lists as an affected area. Patient denies contact with known and/or suspected case of COVID-19. Ebola Screen: Patient denies travel to an Ebola-affected area in the 21 days before illness onset. Initial Sepsis Screen: Does the patient meet any 2 criteria? No. Patient's initial sepsis screen is negative. Does the patient have a suspected source of infection? No. Patient's initial sepsis screen is negative. Risk Assessment: Do you want to hurt yourself or someone else? Patient reports no desire to harm self or others. Onset of symptoms was July 24, 2019. 21:22 Method Of Arrival: Ambulatory ll1 21:22 Acuity: BRUCE 4 ll1 Historical: - Allergies: 21:24 No Known Allergies; ll1 - PSHx: 21:24 None; ll1 - Immunization history:: Adult Immunizations up to date. - Social history:: Smoking status: Patient denies any tobacco usage or history of. Patient/guardian denies using alcohol, street drugs, tobacco products. Assessment: 21:52 General: Appears in no apparent distress. uncomfortable, Behavior is calm, cooperative, vc appropriate for age. Pain: Complains of pain in lumbar area, left low back and right low back Pain radiates to suprapubic area Pain currently is 7 out of 10 on a pain scale. Neuro: Level of Consciousness is awake, alert, obeys commands, Oriented to person, place, time, situation, Appropriate for age. Cardiovascular: Capillary refill < 3 seconds Patient's skin is warm and dry. Respiratory: Airway is patent Respiratory effort is even, unlabored, Respiratory pattern is regular, symmetrical. GI: No signs and/or symptoms were reported involving the gastrointestinal system. : Urine is cloudy. Musculoskeletal: Circulation, motion, and sensation intact. Range of motion: intact in all extremities. Vital Signs: 21:22 BP 115 / 78; Pulse 90; Resp 18; Temp 98.4; Pulse Ox 100% ; Pain 7/10; ll1 ED Course: 21:05 Patient arrived in ED. cl3 21:23 Triage completed. ll1 21:24 Arm band placed on. ll1 21:28 Esa Mcbride PA is PHCP. nini 21:28 Karsten Lakhani DO is Attending Physician. nini 21:52 Nina Jerez, SHOSHANA is Primary Nurse. vc Administered Medications: 23:15 Drug: Valium 5 mg Route: PO; vc 23:15 Follow up: Response: No adverse reaction; Medication administered at discharge. vc 23:15 Drug: [place] 5 mg-325 mg 1 tabs Route: PO; vc 23:15 Follow up: Response: Medication administered at discharge. vc Outcome: 22:39 Discharge ordered by . [facility] 23:17 Patient left the ED. vc Signatures: Esa Mcbride PA PA jmm Lewis, Charde cl3 Nina Jerez, Ravi Hylton RN, vc, RN RN ll1
--- NOTE | 2019-07-27 22:39 | EDPHYS ---
Physician Documentation [facility] Name: Florencia No Age: 18 yrs Sex: Female : 2000 Arrival Date: 07/27/2019 Time: 21:05 Bed 14 Private MD: ED Physician Karsten Lakhani HPI: 07/26 22:34 This 18 yrs old Female presents to ER via Ambulatory with complaints of Low jmm Back Pain. 22:34 The patient presents with pain that is acute. Onset: The symptoms/episode jmm began/occurred gradually, 1 week(s) ago. Modifying factors: The patient symptoms are alleviated by nothing, the patient symptoms are aggravated by any movement. This is a 18 year old female with no chronic medical conditions that presents to the ED with complaints of lower back pain beginning approx 1 week ago. Denies fever, dysuria, injury, weakness. . Historical: - Allergies: 21:24 No Known Allergies; ll1 - PSHx: 21:24 None; ll1 - Immunization history:: Adult Immunizations up to date. - Social history:: Smoking status: Patient denies any tobacco usage or history of. Patient/guardian denies using alcohol, street drugs, tobacco products. ROS: 22:34 Constitutional: Negative for fever, chills, and weight loss, Cardiovascular: Negative jmm for chest pain, palpitations, and edema, Respiratory: Negative for shortness of breath, cough, wheezing, and pleuritic chest pain. 22:34 Neuro: Negative for headache, weakness, numbness, tingling, and seizure. 22:34 Back: Positive for pain with movement. 22:34 All other systems are negative. Exam: 22:34 Constitutional: This is a well developed, well nourished patient who is awake, alert, jmm and in no acute distress. Head/Face: atraumatic. Eyes: EOMI, no conjunctival erythema appreciated ENT: Moist Mucus Membranes Neck: Trachea midline, Supple Chest/axilla: Normal chest wall appearance and motion. Cardiovascular: Regular rate and rhythm. No edema appreciated Respiratory: Normal respirations, no respiratory distress appreciated Abdomen/GI: Non distended, soft 22:34 Back: mild lower back pain on palpation, FROM appreciated. 22:34 Musculoskeletal/extremity: ROM: intact in all extremities. 22:34 Skin: Appearance: Color: normal in color. 22:34 Neuro: Orientation: is normal, Mentation: is normal, Memory: is normal. 22:34 Psych: Behavior/mood is pleasant, cooperative. Vital Signs: 21:22 BP 115 / 78; Pulse 90; Resp 18; Temp 98.4; Pulse Ox 100% ; Pain 7/10; ll1 MDM: 21:38 Patient medically screened. [facility] 22:37 Data reviewed: vital signs, nurses notes. Counseling: I had a detailed discussion with [facility] the patient and/or guardian regarding: the historical points, exam findings, and any diagnostic results supporting the discharge/admit diagnosis, the need for outpatient follow up, to return to the emergency department if symptoms worsen or persist or if there are any questions or concerns that arise at home. ED course: No trauma, afebrile, nonm toxic in appearance. Most likely musculoskeletal pain. I do not suspect cauda equine. Patient advised to follow up with pcp and otherwise given strict return precautions. Patient understood and agrees with the plan of care. . 07/26 22:00 Order name: Urine Dipstick--Ancillary (enter results); Complete Time: 22:27 [facility] 07/26 22:00 Order name: Urine --Ancillary (enter results); Complete Time: 22:27 [facility] 07/26 21:30 Order name: Urine Dipstick-Ancillary (obtain specimen); Complete Time: 21:52 [facility] 07/26 21:30 Order name: Urine Test (obtain specimen); Complete Time: 21:52 [facility] Administered Medications: 23:15 Drug: Valium 5 mg Route: PO; vc 23:15 Follow up: Response: No adverse reaction; Medication administered at discharge. vc 23:15 Drug: [place] 5 mg-325 mg 1 tabs Route: PO; vc 23:15 Follow up: Response: Medication administered at discharge. vc Disposition: 07/27/19 22:39 Discharged to Home. Impression: Low back pain, Urinary tract infection, site not specified. - Condition is Stable. - Discharge Instructions: Back Pain, Adult, Urinary Tract Infection, Adult. - Prescriptions for Keflex 500 mg Oral Capsule - take 1 capsule by ORAL route every 12 hours for 10 days; 20 capsule. Medrol ([place]) 4 mg Oral Tablets, Dose Pack - take 1 tablet by ORAL route as directed - follow package instructions; 1 packet. orphenadrine citrate 100 mg Oral Tablet Sustained Release - take 1 tablet by ORAL route 2 times per day As needed; 20 tablet. - Medication Reconciliation Form, Thank You Letter, Antibiotic Education, Prescription Opioid Use form. - Follow up: Private Physician; When: 2 - 3 days; Reason: Recheck today's complaints, Continuance of care, Re-evaluation by your physician. Signatures: Dispatcher [employer] EDMS Esa Mcbride PA PA jmm Calcote, Vanessa, RN RN vc Lewis, Lynsay, RN RN ll1 Corrections: (The following items were deleted from the chart) 23:17 22:39 07/27/2019 22:39 Discharged to Home. Impression: Low back pain; Urinary tract vc infection, site not specified. Condition is Stable. Forms are Medication Reconciliation Form, Thank You Letter, Antibiotic Education, Prescription Opioid Use. Follow up: Private Physician; When: 2 - 3 days; Reason: Recheck today's complaints, Continuance of care, Re-evaluation by your physician. nini
[2019-07-27] MEDS ORDERED: DIAZEPAM 5 MG TABLET ONE (23:16)
[2019-07-27] MEDS ORDERED: HYDROCODONE/APAP 5/325 MG TAB ONE (23:16)
[2019-07-27 23:21] VITALS: BP 115/78; TEMP 98.4; O2SAT 100
== END 2019-07-27 23:17 | disposition home or self-care (01) ==
LOC: ER 21:03
DX: N39.0 Urinary tract infection, site not specified (principal)
CPT/HCPCS: 81003; 81025; 99283

== ENCOUNTER 2019-10-25 22:04 | Emergency (ER) | payer SELFPAY ==
--- OUTSIDE RECORDS SUMMARY | 2019-10-25 22:07 | XMS REPORT | Continuity of Care Document ---
:2000 Author Organization [facility] t Address [address] [place] [place] [address] Care Team Providers Name Role Phone Gracie [...] Facility Department ID 2019-04-25 2019-04-25 Emergency Tamara [facility] [id number] 16:50:24 17:51:00 Keanu Bowman [place] [id number] [place] [id number] [place] [id number] 2019-04-25 2019-04-25 Orders Doctor FOWLER [id number] 00:00:00 00:00:00 Only Unassigned, [place] [id number] [place] [facility] [id number] 2018-10-07 2018-10-07 Emergency Arie [facility] [id number] 23:18:07 23:56:00 Rondatravis Yun [id number] [place] [id number] [place] [address] [id number] Results This patient has no known results.
[2019-10-25] MEDS ORDERED: IBUPROFEN 400 MG TAB ONE (23:31)
--- NOTE | 2019-10-25 23:52 | ER ---
Nurse's Notes [facility] Name: Florencia No Age: 19 yrs Sex: Female : 2000 Arrival Date: 10/25/2019 Time: 22:10 Bed 8 Private MD: Diagnosis: Acute pharyngitis Presentation: 10/24 22:20 Chief complaint: Patient states: she has had body aches all day and her right tonsil is bb swollen and painful x 2 days she has had a fever and last took tylenol at 1700 tonight denies cough or contact with any ill people. Coronavirus screen: fever, sore throat. Ebola Screen: No symptoms or risks identified at this time. Initial Sepsis Screen: Does the patient meet any 2 criteria? No. Patient's initial sepsis screen is negative. Does the patient have a suspected source of infection? No. Patient's initial sepsis screen is negative. Risk Assessment: Do you want to hurt yourself or someone else? Patient reports no desire to harm self or others. Onset of symptoms was October 23, 2019. 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 - Social history:: Smoking status: Patient denies any tobacco usage or history of. Screenin:30 Abuse screen: Denies threats or abuse. Denies injuries from another. Nutritional rr5 screening: No deficits noted. Tuberculosis screening: No symptoms or risk factors identified. Fall Risk None identified. Total Mejia Fall Scale indicates No Risk (0-24 pts). Assessment: 22:30 General: Appears in no apparent distress. uncomfortable, Behavior is calm, cooperative, rr5 appropriate for age, Reports fever for. 22:30 Pain: Complains of pain in tonsils Pain currently is 6 out of 10 on a pain scale. rr5 Quality of pain is described as aching, Pain began gradually, Is intermittent. Neuro: Level of Consciousness is awake, alert, obeys commands, Oriented to person, place, time, situation. Cardiovascular: Capillary refill < 3 seconds Patient's skin is warm and dry. Respiratory: Airway is patent Respiratory effort is even, unlabored, Respiratory pattern is regular, symmetrical. GI: No signs and/or symptoms were reported involving the gastrointestinal system. : No signs and/or symptoms were reported regarding the genitourinary system. EENT: Throat has enlarged tonsils with gag reflex present, Reports swelling and pain in tonsils. Derm: Skin is intact, is healthy with good turgor, Skin temperature is warm. Musculoskeletal: Circulation, motion, and sensation intact. Capillary refill < 3 seconds. 23:32 Reassessment: Patient appears in no apparent distress at this time. Patient is alert, rr5 oriented x 3, equal unlabored respirations, skin warm/dry/pink. awaiting for result. 10/25 00:37 Reassessment: Patient appears in no apparent distress at this time. Patient is alert, rr5 oriented x 3, equal unlabored respirations, skin warm/dry/pink. discharge instruction given and explained without complaints made. Vital Signs: 10/24 22:20 BP 123 / 83; Pulse 129; Resp 16 S; Temp 100.4(O); Pulse Ox 100% on R/A; Weight 79.38 kg bb (R); Height 5 ft. 4 in. (162.56 cm) (R); Pain 6/10; 23:32 BP 121 / 75; Pulse 109; Resp 19; Pulse Ox 100% ; rr5 10/25 00:35 BP 109 / 64; Pulse 113; Resp 18; Temp 99.5; Pulse Ox 100% on R/A; rv 10/24 22:20 Body Mass Index 30.04 (79.38 kg, 162.56 cm) bb ED Course: 10/24 22:10 Patient arrived in ED. bg2 22:14 Esa Mcbride PA is PHCP. jmm 22:14 Boone Choi MD is Attending Physician. jmm 22:20 Arm band placed on Patient placed in an exam room, on a stretcher, on pulse oximetry. bb 22:28 Armond Grigsby RN is Primary Nurse. rr5 22:30 Patient has correct armband on for positive identification. Call light in reach. Pulse rr5 ox on. NIBP on. 22:41 Triage completed. bb 23:10 Strep swab sent to lab. rr5 23:18 Urine collected: clean catch specimen. rr5 10/25 00:36 No provider procedures requiring assistance completed. Patient did not have IV access rv during this emergency room visit. Administered Medications: 10/24 23:23 Drug: Motrin 800 mg Route: PO; rv 10/25 00:35 Follow up: Response: No adverse reaction rv 10/24 23:53 Drug: Bicillin L-A 1.2 million units Route: IM; Site: left gluteus; rr5 10/25 00:35 Follow up: Response: No adverse reaction rv Outcome: 10/24 23:51 Discharge ordered by . nini 10/25 00:35 Patient left the ED. rr5 00:36 Discharged to home ambulatory. rv 00:36 Condition: good 00:36 Discharge instructions given to patient, Instructed on discharge instructions, follow up and referral plans. Demonstrated understanding of instructions, follow-up care. Signatures: Esa Mcbride PA PA jmm Ballard, Brenda, RN RN Nida Stevens [facility] Dedrick [place], SHOSHANA RN rv Armond Grigsby, RN RN rr5
--- NOTE | 2019-10-25 23:52 | EDPHYS ---
Physician Documentation [facility] Name: Florencia No Age: 19 yrs Sex: Female : 2000 Arrival Date: 10/25/2019 Time: 22:10 Bed 8 Private MD: ED Physician Boone Choi HPI: 10/24 22:36 This 19 yrs old Female presents to ER via Unassigned with complaints of BODY jmm ACHES. 22:36 The patient presents with sore throat. Onset: The symptoms/episode began/occurred jmm gradually, 1 day(s) ago. Modifying factors: The symptoms are alleviated by nothing, the symptoms are aggravated by nothing. Associated signs and symptoms: Pertinent positives: cough, fever. This is a 19 year old female with no chronic medical conditions that presents to the ED with complaints of sore throat beginning yesterday. STates having a mild cough. Denies vomiting or shortness of breath. . 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 - Social history:: Smoking status: Patient denies any tobacco usage or history of. ROS: 22:38 Neck: Negative for injury, pain, and swelling, Cardiovascular: Negative for chest pain, jmm palpitations, and edema. 22:38 Abdomen/GI: Negative for abdominal pain, nausea, vomiting, diarrhea, and constipation, Hematologic/Lymphatic: Negative for swollen nodes, abnormal bleeding, and unusual bruising. 22:38 Constitutional: Positive for body aches, chills. 22:38 ENT: Positive for sore throat. 22:38 Respiratory: Positive for cough. 22:38 All other systems are negative. Exam: 22:38 Constitutional: This is a well developed, well nourished patient who is awake, alert, jmm and in no acute distress. Head/Face: atraumatic. Eyes: EOMI, no conjunctival erythema appreciated 22:38 Neck: Trachea midline, Supple Chest/axilla: Normal chest wall appearance and motion. Cardiovascular: Regular rate and rhythm. No edema appreciated Respiratory: Normal respirations, no respiratory distress appreciated Abdomen/GI: Non distended, soft Back: Normal ROM Skin: General appearance color normal MS/ Extremity: Moves all extremities, no obvious deformities appreciated, no edema noted to the lower extremities Neuro: Awake and alert, normal gait Psych: Behavior is normal, Mood is normal, Patient is cooperative and pleasant 22:38 ENT: Posterior pharynx: Tonsils: enlarged on the right, erythema, that is moderate. Vital Signs: 22:20 BP 123 / 83; Pulse 129; Resp 16 S; Temp 100.4(O); Pulse Ox 100% on R/A; Weight 79.38 kg bb (R); Height 5 ft. 4 in. (162.56 cm) (R); Pain 6/10; 23:32 BP 121 / 75; Pulse 109; Resp 19; Pulse Ox 100% ; rr5 10/25 00:35 BP 109 / 64; Pulse 113; Resp 18; Temp 99.5; Pulse Ox 100% on R/A; rv 10/24 22:20 Body Mass Index 30.04 (79.38 kg, 162.56 cm) bb MDM: 10/24 22:29 Patient medically screened. [facility] 23:50 Data reviewed: vital signs, nurses notes. Counseling: I had a detailed discussion with nini the patient and/or guardian regarding: the historical points, exam findings, and any diagnostic results supporting the discharge/admit diagnosis, lab results, the need for outpatient follow up, to return to the emergency department if symptoms worsen or persist or if there are any questions or concerns that arise at home. ED course: Patient is alert and non toxic in appearance in the ED. Patient is advised to follow up with pcp and otherwise given strict return precautions. patient understood and agrees with the plan of care. . 10/24 22:35 Order name: Strep; Complete Time: 23:42 [facility] 10/24 23:19 Order name: Urine Dipstick--Ancillary (enter results) [facility] 10/24 22:35 Order name: Urine Dipstick-Ancillary (obtain specimen); Complete Time: 23:18 [facility] 10/24 23:19 Order name: Urine --Ancillary (enter results) [facility] 10/24 22:35 Order name: Urine Test (obtain specimen); Complete Time: 23:18 [facility] Administered Medications: 23:23 Drug: Motrin 800 mg Route: PO; rv 10/25 00:35 Follow up: Response: No adverse reaction rv 10/24 23:53 Drug: Bicillin L-A 1.2 million units Route: IM; Site: left gluteus; rr5 10/25 00:35 Follow up: Response: No adverse reaction rv Disposition: 00:41 Co-signature as Attending Physician, Boone Choi MD. rn Disposition: 10/25/19 23:51 Discharged to Home. Impression: Acute pharyngitis. - Condition is Stable. - Discharge Instructions: Pharyngitis. - Medication Reconciliation Form, Thank You Letter, Antibiotic Education, Prescription Opioid Use, Work release form form. - Follow up: Private Physician; When: 2 - 3 days; Reason: Recheck today's complaints, Continuance of care, Re-evaluation by your physician. Signatures: Dispatcher [employer] EDMS Esa Mcbride PA PA jmm Ballard, Brenda, Boone Toth RN, MD MD rn Vicente, Ronaldo, RN RN rv Roque, Raymond, SHOSHANA RN rr5 Corrections: (The following items were deleted from the chart) 00:35 10/24 23:51 10/25/2019 23:51 Discharged to Home. Impression: Acute pharyngitis. rr5 Condition is Stable. Forms are Medication Reconciliation Form, Thank You Letter, Antibiotic Education, Prescription Opioid Use. Follow up: Private Physician; When: 2 - 3 days; Reason: Recheck today's complaints, Continuance of care, Re-evaluation by your physician. nini
[2019-10-25] MEDS ORDERED: PEN G BENZ LA 1.2MU/2ML SYRINGE IM ONE (23:57)
[2019-10-26 00:11] LABS: Urine Blood 3+ (NEG); Urine Glucose NEGATIVE (NEG); Urine Protein 2+ (NEG); Urine Specific Gravity 1.025 (1.005-1.030)
== END 2019-10-26 00:35 | disposition home or self-care (01) ==
LOC: ER 22:04
DX: J02.9 Acute pharyngitis, unspecified (principal)
CPT/HCPCS: 81003; 81025; 87081; 96372; 99283; J0561

== ENCOUNTER 2019-12-05 21:15 | Emergency (ER) | payer SELFPAY ==
--- NOTE | 2019-12-05 22:33 | ER ---
Nurse's Notes [facility] Name: Florencia No Age: 19 yrs Sex: Female : 2000 Arrival Date: 12/05/2019 Time: 21:16 Bed Waiting Private MD: Diagnosis: Presentation: 12/04 21:37 Chief complaint: Patient states: "I think I have some puss coming out of my right eye jd3 starting at about 1700.". Coronavirus screen: At this time, the client does not indicate any symptoms associated with coronavirus-19. Ebola Screen: Patient negative for fever greater than or equal to 101.5 degrees Fahrenheit, and additional compatible Ebola Virus Disease symptoms. Initial Sepsis Screen: Does the patient meet any 2 criteria? No. Patient's initial sepsis screen is negative. Does the patient have a suspected source of infection? No. Patient's initial sepsis screen is negative. Risk Assessment: Do you want to hurt yourself or someone else? Patient reports no desire to harm self or others. Onset of symptoms was December 05, 2019. 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 - Social history:: Smoking status: Patient denies any tobacco usage or history of. Vital Signs: 21:39 BP 120 / 82; Pulse 80; Resp 17 S; Temp 98.1(O); Pulse Ox 98% on R/A; Weight 79.83 kg jd3 (R); Height 5 ft. 4 in. (162.56 cm) (R); Pain 4/10; 21:39 Body Mass Index 30.21 (79.83 kg, 162.56 cm) jd3 ED Course: 21:16 Patient arrived in ED. am2 21:38 Triage completed. jd3 21:38 Arm band placed on. jd3 22:22 Patient's name was called from ER lobby. No response. bb 22:33 Patient's name was called from ER lobby. Unable to locate patient. Will disposition as bb left without being seen by a provider. Administered Medications: No medications were administered Outcome: 22:33 Patient left the ED. bb Signatures: Celia Greene RN RN bb Magaly Miner Jonathon, RN RN jd3
[2019-12-05 23:24] VITALS: BP 120/82; TEMP 98.1; O2SAT 98
--- OUTSIDE RECORDS SUMMARY | 2019-12-10 21:54 | XMS REPORT | Continuity of Care Document ---
:2000 Author Organization [facility] t Address [address] [place] [place] [address] Care Team Providers Name Role Phone Gracie [...] Facility Department ID 2019-04-25 2019-04-25 Emergency Tamara [facility] [place] [id number] 16:50:24 17:51:00 Keanu Bowman [place] [id number] [place] [id number] [place] [id number] 2019-04-25 2019-04-25 Orders Doctor FOWLER [id number] 00:00:00 00:00:00 Only Unassigned, CIRO [id number] [place] [facility] [id number] 2018-10-07 2018-10-07 Emergency Arie [facility] [place] [id number] 23:18:07 23:56:00 Rondatravis Yun [id number] [place] [id number] [place] [address] [id number] Results This patient has no known results.
== END 2019-12-05 22:33 | disposition left against medical advice (07) ==
LOC: ER 21:15
DX: Z53.21 Procedure and treatment not carried out due to patient leaving prior to being seen by health care provider (principal)
CPT/HCPCS: 99281

== ENCOUNTER 2020-03-28 13:13 | Emergency (ER) | payer SELFPAY ==
--- OUTSIDE RECORDS SUMMARY | 2020-03-28 13:18 | XMS REPORT | Continuity of Care Document ---
:2000 Author Organization [facility] t Address [address] [place] [place] [address] Care Team Providers Name Role Phone Gracie [...] Clinicians Facility Department ID 2019-04-25 2019-04-25 [facility] [id number] 16:50:24 17:51:00 Keanu Bowman [place] [id number] [place] [id number] [place] [address] [phone] [id number] 2019-04-25 2019-04-25 Orders Doctor FOWLER [id number] 00:00:00 00:00:00 Only Unassigned, CIRO [id number] [place] [facility] [phone] [id number] 2018-10-07 2018-10-07 Emergency Arie [facility] [id number] 23:18:07 23:56:00 Ronda Camveronica [place] [id number] [place] [id number] [place] [address] [phone] [id number] Results This patient has no known results.
--- NOTE | 2020-03-28 14:25 | ER ---
Nurse's Notes [facility] Name: Florencia No Age: 19 yrs Sex: Female : 2000 Arrival Date: 03/28/2020 Time: 13:14 Bed Waiting Private MD: Diagnosis: Ganglion Cyst of left wrist Presentation: 03/28 13:18 Chief complaint: Patient states: Noticed a knot on L wrist 2 weeks ago. Denies injury ca1 to the area. Reports pain with pressure to the affected part. Coronavirus screen: Client denies travel out of the [place] in the last 14 days. At this time, the client does not indicate any symptoms associated with coronavirus-19. Ebola Screen: Patient negative for fever greater than or equal to 101.5 degrees Fahrenheit, and additional compatible Ebola Virus Disease symptoms Patient denies exposure to infectious person. Patient denies travel to an Ebola-affected area in the 21 days before illness onset. No symptoms or risks identified at this time. Initial Sepsis Screen: Does the patient meet any 2 criteria? No. Patient's initial sepsis screen is negative. Does the patient have a suspected source of infection? No. Patient's initial sepsis screen is negative. Risk Assessment: Do you want to hurt yourself or someone else? Patient reports no desire to harm self or others. Onset of symptoms was March 28, 2020. 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 - Social history:: Smoking status: Patient denies any tobacco usage or history of. - Family history:: not pertinent. - Hospitalizations: : No recent hospitalization is reported. Screenin:16 Abuse screen: Denies threats or abuse. Denies injuries from another. Nutritional ca1 screening: No deficits noted. Tuberculosis screening: No symptoms or risk factors identified. Fall Risk None identified. Assessment: 14:16 Reassessment: Pt seen by Dr. Choi in triage at this time. General: Appears in no ca1 apparent distress. comfortable, Behavior is calm, cooperative, appropriate for age. Pain: Denies pain. Neuro: Level of Consciousness is awake, alert, obeys commands, Oriented to person, place, time, situation. Derm: Skin is intact, is healthy with good turgor, Skin is pink, warm \T\ dry. Derm: cyst on dorsal aspect of L wrist. Musculoskeletal: Circulation, motion, and sensation intact. Capillary refill < 3 seconds, Range of motion: intact in all extremities. Vital Signs: 13:18 BP 119 / 71; Pulse 92; Resp 16 S; Temp 97.1(TE); Pulse Ox 99% on R/A; Weight 81.65 kg ca1 (R); Height 5 ft. 4 in. (162.56 cm) (M); Pain 0/10; 14:19 BP 121 / 76; Pulse 86; Resp 16 S; Pulse Ox 100% on R/A; ca1 13:18 Body Mass Index 30.90 (81.65 kg, 162.56 cm) ca1 ED Course: 13:14 Patient arrived in ED. as 13:20 Triage completed. ca1 13:20 Arm band placed on right wrist. ca1 14:16 Patient has correct armband on for positive identification. ca1 14:19 No provider procedures requiring assistance completed. Patient did not have IV access ca1 during this emergency room visit. 14:21 Boone Choi MD is Attending Physician. rn Administered Medications: No medications were administered Outcome: 14:24 Discharge ordered by . rn 14:28 Discharged to home ambulatory. ca1 14:28 Condition: stable 14:28 Discharge instructions given to patient, Instructed on discharge instructions, follow up and referral plans. Demonstrated understanding of instructions, follow-up care, Following a medical screening exam, the patient was provided information regarding alternative care sites and resources available per registration personnel. 14:28 Patient left the ED. ca1 Signatures: Joy Donnelly Roman, MD MD rn Acob, SHOSHANA Arriaga RN ca1
--- NOTE | 2020-03-28 14:25 | EDPHYS ---
Physician Documentation [facility] Name: Florencia No Age: 19 yrs Sex: Female : 2000 Arrival Date: 03/28/2020 Time: 13:14 Bed Waiting Private MD: ED Physician Boone Choi HPI: 03/28 14:21 This 19 yrs old Female presents to ER via Ambulatory with complaints of knot rn on hand. 14:21 The patient or guardian reports swelling. The complaints affect the left wrist rn diffusely. Onset: The symptoms/episode began/occurred 2 week(s) ago. Modifying factors: The symptoms are alleviated by nothing, the symptoms are aggravated by nothing. The patient has not experienced similar symptoms in the past. The patient has not recently seen a physician. Reports bump to back of left wrist, non-painful, no injury, for 2 weeks. . 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 - Social history:: Smoking status: Patient denies any tobacco usage or history of. - Family history:: not pertinent. - Hospitalizations: : No recent hospitalization is reported. ROS: 14:21 Constitutional: Negative for fever, chills, and weight loss, MS/Extremity: Negative for rn injury and deformity. Exam: 14:21 Constitutional: This is a well developed, well nourished patient who is awake, alert, rn and in no acute distress. MS/ Extremity: Pulses equal, no cyanosis. Neurovascular intact. Full, normal range of motion. Equal circumference. small, non-tender, mobile 1 cm diameter ganglion cyst dorsal left hand. Vital Signs: 13:18 BP 119 / 71; Pulse 92; Resp 16 S; Temp 97.1(TE); Pulse Ox 99% on R/A; Weight 81.65 kg ca1 (R); Height 5 ft. 4 in. (162.56 cm) (M); Pain 0/10; 14:19 BP 121 / 76; Pulse 86; Resp 16 S; Pulse Ox 100% on R/A; ca1 13:18 Body Mass Index 30.90 (81.65 kg, 162.56 cm) ca1 MDM: 14:21 Patient medically screened. rn 14:21 Differential diagnosis: ganglion cyst. Data reviewed: vital signs, nurses notes, and as rn a result, I will discharge patient. Counseling: I had a detailed discussion with the patient and/or guardian regarding: the historical points, exam findings, and any diagnostic results supporting the discharge/admit diagnosis, the need for outpatient follow up, to return to the emergency department if symptoms worsen or persist or if there are any questions or concerns that arise at home. Special discussion: I discussed with the patient/guardian in detail that at this point there is no indication for admission to the hospital. It is understood, however, that if the symptoms persist or worsen the patient needs to return immediately for re-evaluation. Based on the history and exam findings, there is no indication for further emergent testing or inpatient evaluation. I discussed with the patient/guardian the need to see the orthopedic surgeon for further evaluation of the symptoms. Administered Medications: No medications were administered Disposition: 03/28/20 14:24 Discharged to Home as Medical Screen. Impression: Ganglion Cyst of left wrist. - Condition is Stable. - Discharge Instructions: Ganglion Cyst. - Medication Reconciliation Form, Thank You Letter, Antibiotic Education, Prescription Opioid Use, Work release form form. - Follow up: Private Physician; When: As needed; Reason: Recheck today's complaints, Re-evaluation by your physician. - Problem is an ongoing problem. - Symptoms are unchanged. Signatures: Boone Choi MD MD rn Acob, SHOSHANA Arriaga RN ca1 Corrections: (The following items were deleted from the chart) 14:28 14:24 03/28/2020 14:24 Discharged to Home as Medical Screen. Impression: Ganglion Cyst ca1 of left wrist. Condition is Stable. Forms are Work release form, Medication Reconciliation Form, Thank You Letter, Antibiotic Education, Prescription Opioid Use. Follow up: Private Physician; When: As needed; Reason: Recheck today's complaints, Re-evaluation by your physician. Problem is an ongoing problem. Symptoms are unchanged. rn
[2020-03-28 14:34] VITALS: TEMP 97.1
[2020-03-28 14:35] VITALS: BP 121/76; O2SAT 100
== END 2020-03-28 14:28 | disposition home or self-care (01) ==
LOC: ER 13:13
DX: M67.432 Ganglion, left wrist (principal)
CPT/HCPCS: 99281

== ENCOUNTER 2020-07-09 17:59 | Emergency (ER) | payer SELFPAY ==
--- OUTSIDE RECORDS SUMMARY | 2020-07-09 18:02 | XMS REPORT | Continuity of Care Document ---
:2000 Author Organization [facility] t Address [address] [place] [place] [address] Care Team Providers Name Role Phone Gracie [...] Facility Department ID 2019-04-25 2019-04-25 Emergency Tamara [facility] [id number] 16:50:24 17:51:00 Keanu Bowman [place] [id number] [place] [id number] [place] [address] [phone] [id number] 2019-04-25 2019-04-25 Orders Doctor FOWLER [id number] 00:00:00 00:00:00 Only Unassigned, CIRO [id number] [place] [facility] [id number] 2018-10-07 2018-10-07 Emergency Arie [facility] [id number] 23:18:07 23:56:00 Ronda Camveronica [place] [id number] [place] [id number] [place] [address] [phone] [id number] Results This patient has no known results.
[2020-07-09] MEDS ORDERED: ACETAMINOPHEN 500 MG TAB ONE (22:01)
--- NOTE | 2020-07-09 22:28 | ER ---
Nurse's Notes [facility] Name: Florencia No Age: 19 yrs Sex: Female : 2000 Arrival Date: 07/09/2020 Time: 18:05 Bed 12 Private MD: Diagnosis: Acute tonsillitis Presentation: 07/09 18:16 Chief complaint: Patient states: body aches, sore throat x 1 days. Coronavirus screen: sv Client denies travel out of the [place] in the last 14 days. At this time, the client does not indicate any symptoms associated with coronavirus-19. Ebola Screen: No symptoms or risks identified at this time. Risk Assessment: Do you want to hurt yourself or someone else? Patient reports no desire to harm self or others. Onset of symptoms was June 08, 2020. 18:16 Method Of Arrival: Ambulatory sv 18:16 Acuity: BRUCE 4 sv 18:17 Initial Sepsis Screen: Does the patient meet any 2 criteria? HR > 90 bpm. No. Patient's sv initial sepsis screen is negative. Does the patient have a suspected source of infection? No. Patient's initial sepsis screen is negative. Triage Assessment: 18:19 General: Appears in no apparent distress. uncomfortable, Behavior is cooperative, sv appropriate for age, crying. Neuro: Level of Consciousness is awake, alert, obeys commands, Oriented to person, place, time, situation, Gait is steady, Speech is normal. Respiratory: Airway is patent Respiratory effort is even, unlabored, Respiratory pattern is regular, symmetrical. 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 - Social history:: Smoking status: Patient denies any tobacco usage or history of. Screenin:15 Abuse screen: Denies threats or abuse. Denies injuries from another. Nutritional iw screening: No deficits noted. Tuberculosis screening: No symptoms or risk factors identified. Fall Risk None identified. Assessment: 21:14 General: Appears in no apparent distress. Behavior is calm, cooperative. General: iw Reports chills for. Pain: Complains of pain in throat. Neuro: Level of Consciousness is awake, alert, obeys commands, Oriented to person, place, time, situation, Moves all extremities. Respiratory: Respiratory effort is even, unlabored, Respiratory pattern is regular, symmetrical, Breath sounds are clear bilaterally. EENT: Throat is reddened Reports pain when swallowing. Derm: Skin is intact, is healthy with good turgor. Musculoskeletal: Range of motion: intact in all extremities. Vital Signs: 18:17 BP 128 / 80; Pulse 110; Resp 20; Temp 98.9; Pulse Ox 99% ; Weight 79.38 kg; Height 5 sv ft. 4 in. (162.56 cm); Pain 7/10; 18:17 Body Mass Index 30.04 (79.38 kg, 162.56 cm) sv ED Course: 18:05 Patient arrived in ED. ds1 18:16 Arm band placed on. sv 18:17 Triage completed. sv 21:12 Scarlett Pond, RN is Primary Nurse. iw 21:13 John Santana PA is PHCP. cp 21:13 Moise Meehan MD is Attending Physician. cp 22:40 Patient has correct armband on for positive identification. iw 22:40 No provider procedures requiring assistance completed. Patient did not have IV access iw during this emergency room visit. Administered Medications: 21:53 Drug: Tylenol 1000 mg Route: PO; iw 22:00 Follow up: Response: No adverse reaction iw Outcome: 22:28 Discharge ordered by MD. cp 22:40 Discharged to home ambulatory, with family. iw 22:40 Condition: good 22:40 Discharge instructions given to patient, Instructed on discharge instructions, follow up and referral plans. medication usage, Demonstrated understanding of instructions, follow-up care, medications, Prescriptions given X 2. 22:41 Patient left the ED. iw Signatures: Natalia Ansari, RN SHOSHANA [place] ds1 Scarlett Pond RN RN iw John Santana PA PA cp
--- NOTE | 2020-07-09 22:28 | EDPHYS ---
Physician Documentation [facility] Name: Florencia No Age: 19 yrs Sex: Female : 2000 Arrival Date: 07/09/2020 Time: 18:05 Bed 12 Private MD: ED Physician Moise Meehan HPI: 07/09 21:15 This 19 yrs old Female presents to ER via Ambulatory with complaints of Sore cp Throat. 21:15 The patient presents with sore throat. Onset: The symptoms/episode began/occurred cp yesterday. 21:15 Associated signs and symptoms: Pertinent positives: body aches, Pertinent negatives cp cough, diarrhea, earache, fever, vomiting. 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 - Social history:: Smoking status: Patient denies any tobacco usage or history of. ROS: 21:19 Eyes: Negative for injury, pain, redness, and discharge. cp 21:19 Constitutional: Positive for body aches, Negative for chills, fever, poor PO intake. 21:19 ENT: Positive for sore throat, Negative for drainage from ear(s), ear pain, difficulty swallowing, difficulty handling secretions. 21:19 Cardiovascular: Negative for chest pain. 21:19 Respiratory: Negative for cough, shortness of breath, wheezing. 21:19 Abdomen/GI: Negative for abdominal pain, nausea, vomiting, and diarrhea. 21:19 Skin: Negative for rash. 21:19 All other systems are negative. Exam: 21:21 Head/Face: Normocephalic, atraumatic. cp 21:21 Constitutional: The patient appears in no acute distress, alert, awake, non-toxic, well developed, well nourished. 21:21 Eyes: Periorbital structures: appear normal, Conjunctiva: normal, no exudate, no injection, Sclera: no appreciated abnormality, Lids and lashes: appear normal, bilaterally. 21:21 ENT: External ear(s): are unremarkable, Ear canal(s): are normal, clear, TM's: dullness, bilaterally, Nose: is normal, Mouth: Lips: moist, Oral mucosa: moist, Posterior pharynx: Airway: no evidence of obstruction, patent, Tonsils: bilaterally enlarged, no exudate, Uvula: midline, erythema, that is mild, exudate, is not appreciated. 21:21 Neck: ROM/movement: is normal, is supple, no meningismus, no nuchal rigidity, Lymph nodes: lymphadenopathy is appreciated, anterior cervical nodes. 21:21 Chest/axilla: Inspection: normal, Palpation: is normal, no crepitus, no tenderness. 21:21 Cardiovascular: Rate: tachycardic, Rhythm: regular. 21:21 Respiratory: the patient does not display signs of respiratory distress, Respirations: normal, no use of accessory muscles, labored breathing, is not present. Vital Signs: 18:17 BP 128 / 80; Pulse 110; Resp 20; Temp 98.9; Pulse Ox 99% ; Weight 79.38 kg; Height 5 sv ft. 4 in. (162.56 cm); Pain 7/10; 18:17 Body Mass Index 30.04 (79.38 kg, 162.56 cm) sv MDM: 21:18 Patient medically screened. cp 22:00 Differential diagnosis: harrison-vargas virus, group A strep tonsillitis, lv's angina, cp peritonsillar abscess pharyngitis, retropharyngeal abcess. 22:27 Data reviewed: vital signs, nurses notes, lab test result(s), and as a result, I will cp discharge patient. 22:27 Counseling: I had a detailed discussion with the patient and/or guardian regarding: the cp historical points, exam findings, and any diagnostic results supporting the discharge/admit diagnosis, lab results, to return to the emergency department if symptoms worsen or persist or if there are any questions or concerns that arise at home. Response to treatment: the patient's symptoms have mildly improved after treatment, and as a result, I will discharge patient. 07/09 21:16 Order name: Strep cp 07/09 22:30 Order name: Throat Culture EDMS Administered Medications: 21:53 Drug: Tylenol 1000 mg Route: PO; iw 22:00 Follow up: Response: No adverse reaction iw Disposition: 07/10 05:49 Co-signature as Attending Physician, Moise Meehan MD. [email or web address] Disposition: 07/09/20 22:28 Discharged to Home. Impression: Acute tonsillitis. - Condition is Stable. - Discharge Instructions: Tonsillitis. - Prescriptions for Ibuprofen 800 mg Oral Tablet - take 1 tablet by ORAL route every 8 hours As needed take with food; 30 tablet. Keflex 500 mg Oral Capsule - take 1 capsule by ORAL route every 8 hours for 10 days; 30 capsule. - Work release form, Medication Reconciliation Form, Thank You Letter, Antibiotic Education, Prescription Opioid Use form. - Follow up: Private Physician; When: 2 - 3 days; Reason: Worsening of condition. - Problem is new. - Symptoms have improved. Signatures: Dispatcher [employer] EDNatalia Ceron RN RN Scarlett Wiggins RN RN iw John Santana, GRISEL PA cp Moise Meehan MD MD [email or web address] Corrections: (The following items were deleted from the chart) 07/09 22:41 22:28 07/09/2020 22:28 Discharged to Home. Impression: Acute tonsillitis. Condition is iw Stable. Forms are Medication Reconciliation Form, Thank You Letter, Antibiotic Education, Prescription Opioid Use. Follow up: Private Physician; When: 2 - 3 days; Reason: Worsening of condition. Problem is new. Symptoms have improved. cp
[2020-07-09 22:46] VITALS: BP 128/80; TEMP 98.9; O2SAT 99
== END 2020-07-09 22:41 | disposition home or self-care (01) ==
LOC: ER 17:59
DX: J03.90 Acute tonsillitis, unspecified (principal)
CPT/HCPCS: 87070; 87081; 99283

== ENCOUNTER 2020-11-06 15:26 | Emergency (ER) | payer SELFPAY ==
--- OUTSIDE RECORDS SUMMARY | 2020-11-06 15:28 | XMS REPORT | Continuity of Care Document ---
:2000 Author Organization [facility] t Address [address] [place] [address] Care Team Providers Name Role Phone Gracie [...] Clinicians Facility Department ID 2019-04-25 2019-04-25 Emergency EULOGIO Mcdonald [id number] 16:50:24 17:51:00 Keanu Bowman [place] [id number] [place] [id number] [place] [phone] [id number] 2019-04-25 2019-04-25 Orders Doctor FOWLER [id number] 00:00:00 00:00:00 Only Unassigned, CIR[place] [id number] [place] [facility] [id number] 2018-10-07 2018-10-07 Emergency EULOGIO Sargent [id number] 23:18:07 23:56:00 Ronda Chantalveronica Yun [id number] [place] [id number] [place] [address] [phone] [id number] Results This patient has no known results.
[2020-11-06 18:11] LABS: SARS-COV-2 RT PCR POSITIVE (NEGATIVE)
--- NOTE | 2020-11-06 21:54 | ER ---
Nurse's Notes [facility] Name: Florencia No Age: 20 yrs Sex: Female : 2000 Arrival Date: 11/06/2020 Time: 15:27 Bed Waiting Private MD: Diagnosis: SARS-associated coronavirus as the cause of diseases classified elsewhere Presentation: 11/06 16:50 Chief complaint: Patient states: cough, congestion, body aches, and chills that began aa5 Sunday. Coronavirus screen: chills, cough unrelated to allergies, muscle pain. Ebola Screen: Patient negative for fever greater than or equal to 101.5 degrees Fahrenheit, and additional compatible Ebola Virus Disease symptoms. Initial Sepsis Screen: Does the patient meet any 2 criteria? No. Patient's initial sepsis screen is negative. Does the patient have a suspected source of infection? No. Patient's initial sepsis screen is negative. Risk Assessment: Do you want to hurt yourself or someone else? Patient reports no desire to harm self or others. Onset of symptoms was November 2020. 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 - Social history:: Smoking status: Patient denies any tobacco usage or history of. Assessment: 22:02 Reassessment: pt seen at discharge by this RN pt A\T\O x 4, resp unlabored, pt verbalized bb understanding of and agrees to plan of care discharge instructions given pt ambulated with steady gait to exit. Vital Signs: 16:50 BP 120 / 81; Pulse 83; Resp 18 S; Temp 99.0(TE); Pulse Ox 99% on R/A; Weight 83.91 kg aa5 (R); Height 5 ft. 3 in. (160.02 cm) (R); Pain 6/10; 21:47 BP 123 / 74; Pulse 96; Resp 18; Temp 98.0(O); Pulse Ox 97% on R/A; oe 16:50 Body Mass Index 32.77 (83.91 kg, 160.02 cm) aa5 ED Course: 15:27 Patient arrived in ED. as 16:50 Arm band placed on. aa5 16:52 Triage completed. aa5 16:57 COVID swab sent to lab. Flu and/or RSV swab sent to lab. aa5 21:43 John Santana PA is PHCP. cp 21:43 Moise Meehan MD is Attending Physician. cp Administered Medications: No medications were administered Outcome: 21:53 Discharge ordered by MD. cp 22:03 Discharged to home ambulatory. bb 22:03 Condition: stable 22:03 Discharge instructions given to patient, Instructed on discharge instructions, follow up and referral plans. medication usage, Demonstrated understanding of instructions, follow-up care, medications, Prescriptions given X 1. 22:04 Patient left the ED. bb Signatures: Joy Donnelly Brenda RN RN bb Teresa Meza RN RN aa5 John Santana PA PA cp Glenn Mccollum oe Corrections: (The following items were deleted from the chart) 16:52 16:52 PSHx: Unable to Obtain; aa5 aa5
--- NOTE | 2020-11-06 21:54 | EDPHYS ---
Physician Documentation [facility] Name: Florencia No Age: 20 yrs Sex: Female : 2000 Arrival Date: 11/06/2020 Time: 15:27 Bed Waiting Private MD: ED Physician Moise Meehan HPI: 11/06 21:49 This 20 yrs old Female presents to ER via Ambulatory with complaints of Cough, cp Congestion. 21:49 The patient or guardian reports cough, that is intermittent, with no sputum. Onset: The cp symptoms/episode began/occurred 3 day(s) ago. Severity of symptoms: in the emergency department the symptoms are unchanged, despite home interventions. Associated signs and symptoms: Pertinent negatives: diarrhea, fever, sore throat, vomiting. 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 - Social history:: Smoking status: Patient denies any tobacco usage or history of. ROS: 21:50 Eyes: Negative for injury, pain, redness, and discharge. cp 21:50 Constitutional: Positive for body aches, Negative for fever, poor PO intake. 21:50 ENT: Negative for ear pain, sore throat, difficulty swallowing, difficulty handling secretions. 21:50 Respiratory: Positive for cough, with no reported sputum, Negative for shortness of breath, wheezing. 21:50 Abdomen/GI: Negative for abdominal pain, nausea, vomiting, and diarrhea. 21:50 Neuro: Negative for altered mental status, headache, weakness. 21:50 All other systems are negative. Exam: 21:51 Head/Face: Normocephalic, atraumatic. cp 21:51 Constitutional: The patient appears in no acute distress, alert, awake, non-toxic, well developed, well nourished. 21:51 Eyes: Periorbital structures: appear normal, Conjunctiva: normal, no exudate, no injection, Sclera: no appreciated abnormality, Lids and lashes: appear normal, bilaterally. 21:51 ENT: External ear(s): are unremarkable, Nose: is normal, Posterior pharynx: Airway: no evidence of obstruction, patent. 21:51 Chest/axilla: Inspection: normal. 21:51 Cardiovascular: Rate: normal, Rhythm: regular. 21:51 Respiratory: the patient does not display signs of respiratory distress, Respirations: normal, no use of accessory muscles, no retractions, labored breathing, is not present, Breath sounds: are clear throughout, no decreased breath sounds, no stridor, no wheezing. 21:51 Abdomen/GI: Exam negative for discomfort, distension, guarding, Inspection: abdomen appears normal. Vital Signs: 16:50 BP 120 / 81; Pulse 83; Resp 18 S; Temp 99.0(TE); Pulse Ox 99% on R/A; Weight 83.91 kg aa5 (R); Height 5 ft. 3 in. (160.02 cm) (R); Pain 6/10; 21:47 BP 123 / 74; Pulse 96; Resp 18; Temp 98.0(O); Pulse Ox 97% on R/A; oe 16:50 Body Mass Index 32.77 (83.91 kg, 160.02 cm) aa5 MDM: 21:52 Differential Diagnosis: Bronchitis Influenza Upper Respiratory Infection Pneumonia cp Other COVID-19. Data reviewed: vital signs, nurses notes, lab test result(s), and as a result, I will discharge patient. 21:53 Patient medically screened. cp 11/06 18:11 Order name: COVID-19/FLU A+B; Complete Time: 21:43 EDMS Administered Medications: No medications were administered Disposition: 11/07 05:45 Co-signature as Attending Physician, Moise Meehan MD. [email or web address] Disposition Summary: 11/06/20 21:53 Discharge Ordered Location: Home cp Problem: new cp Symptoms: are unchanged cp Condition: Stable cp Diagnosis - SARS-associated coronavirus as the cause of diseases classified elsewhere cp Followup: cp - With: Private Physician - When: 2 - 3 days - Reason: Worsening of condition Discharge Instructions: - Discharge Summary Sheet bb - COVID-19 cp - Things to Know about the COVID-19 Pandemic - [facility] cp - 10 Things You Can Do to Manage Your COVID-19 Symptoms at Home - [facility] cp - COVID-19: Quarantine vs. Isolation - [facility] cp - Prevent the Spread of COVID-19 if You Are Sick - CDC cp Forms: - Work release form bb - Medication Reconciliation Form cp - Thank You Letter cp - Antibiotic Education cp - Prescription Opioid Use cp Prescriptions: - Tessalon Perles 100 mg Oral Capsule - take 2 capsule by ORAL route every 8 hours As needed; 30 capsule; Refills: 0, cp Product Selection Permitted Signatures: Dispatcher [employer] EDMS Teresa Meza RN RN aa5 John Santana PA PA Moise Yeh MD MD [email or web address] Corrections: (The following items were deleted from the chart) 11/06 16:52 16:52 PSHx: Unable to Obtain; aa5 aa5 17:25 16:54 CORONAVIRUS+MR.LAB.BRZ ordered. EDMS EDMS 17:26 16:54 Influenza Screen (A \T\ B)+BA.LAB.BRZ ordered. EDMS EDMS
[2020-11-06 22:24] VITALS: BP 123/74; TEMP 98; O2SAT 97
== END 2020-11-06 22:04 | disposition home or self-care (01) ==
LOC: ER 15:26
DX: U07.1 COVID-19 (principal)
CPT/HCPCS: 0240U; 99283

== ENCOUNTER 2021-02-02 17:11 | Emergency (ER) | payer SELFPAY ==
--- OUTSIDE RECORDS SUMMARY | 2021-02-02 17:13 | XMS REPORT | Continuity of Care Document ---
:2000 Author Organization [facility] t Address [address] [place] [address] Care Team Providers Name Role Phone Gracie Mcdoanld MD Attending Clinician Doctor Unassigned, Name Attending Clinician Unavailable Chantal Ngo Attending Clinician Payers Payer Name Policy Type Policy Number Effective Date Expiration Date S ourkaren Problems Condition Condition Condition Status Onset Resolution Last Treating Co mments Source Name Details Category Date Date Treatment Clinician Date No known No known Disease Unive rs active active ity of problems problems [facility] Allergies, Adverse Reactions, Alerts This patient has no known allergies or adverse reactions. Social History Social Habit Start Date Stop Date Quantity Comments Source Sex Assigned At Uni versity [facility] Smoking Status Start Date Stop Date Source Unknown if ever smoked Universit y [facility] Medications Ordered Filled Start Stop Current Ordering Indication Dosage Frequency Signature Comments Components Source Medication Medication Date Date Medication? Clinician (SIG) Name Name naproxen Yes [id number] 550mg Take 1 Univers sodium 550 2-21 [id number] tablet by it y of mg tablet 00:00: mouth 2 [place] 00 (two) Medical times Branch daily with meals. codeine-gua 2018-03 Yes [id number] 10mL Take 10 mL Univers ifenesin 0-16 by mouth ity of 10-100 mg/5 00:00: every 6 [place] as mL solution 00 (six) Medical hours as Branch needed for Cough. albuterol 2018-03 Yes [id number] 2{puff} Inhale 2 Univers 90 0-16 Puffs ity of mcg/actuati 00:00: every 6 [place] as on inhaler 00 (six) Medical hours as Branch needed for Wheezing, Shortness of Breath or Chest tightness. codeine-gua 2018- Yes [id number] 10mL Take 10 mL Univers ifenesin 0-16 by mouth ity of 10-100 mg/5 00:00: every 6 [place] as mL solution 00 (six) Medical hours as Branch needed for Cough. albuterol 2018-03 Yes [id number] 2{puff} Inhale 2 Univers 90 0-16 Puffs ity of mcg/actuati 00:00: every 6 [place] as on inhaler 00 (six) Medical hours as Branch needed for Wheezing, Shortness of Breath or Chest tightness. Vital Signs Vital Name Observation Time Observation Value Comments Source Systolic blood 2019-04-25 22:48:00 132 mm[Hg] [facility] sit [facility] Diastolic blood 2019-04-25 22:48:00 77 mm[Hg] [facility] Heart rate 2019-04-25 22:48:00 97 /min [facility] Body temperature 2019-04-25 22:48:00 37.06 Jayla [facility] Respiratory rate 2019-04-25 22:48:00 16 /min [facility] Body height 2019-04-25 22:48:00 160 cm [facility] Body weight 2019-04-25 22:48:00 72.576 kg [facility] BMI 2019-04-25 22:48:00 28.34 kg/m2 [facility] Oxygen saturation in 2019-04-25 22:48:00 99 /min [facility] Arterial blood by [facility] Pulse oximetry Branch Systolic blood 2019-04-25 22:48:00 132 mm[Hg] Univer sity [facility] Diastolic blood 2019-04-25 22:48:00 77 mm[Hg] [facility] 2019-04-25 22:48:00 97 /min [facility] Body temperature 2019-04-25 22:48:00 37.06 Jayla [facility] Respiratory rate 2019-04-25 22:48:00 16 /min [facility] Body height 2019-04-25 22:48:00 160 cm [facility] [place] [facility] Body weight 2019-04-25 22:48:00 72.576 kg [facility] [place] [facility] BMI 2019-04-25 22:48:00 28.34 kg/m2 [facility] [place] [facility] Oxygen saturation in 2019-04-25 22:48:00 99 /min [facility] of Arterial blood by [place] [facility] Pulse oximetry Branch Body weight 2018-10-08 04:15:00 68.04 kg [facility] [place] [facility] BMI 2018-10-08 04:15:00 26.57 kg/m2 [facility] [place] [facility] Oxygen saturation in 2018-10-08 04:15:00 100 /min [facility] Arterial blood by [place] [facility] Pulse oximetry Branch Systolic blood 2018-10-08 04:15:00 123 mm[Hg] Univer sity of pressure [facility] [place] [facility] Diastolic blood 2018-10-08 04:15:00 80 mm[Hg] Unive rsity of pressure [facility] [place] [facility] Heart rate 2018-10-08 04:15:00 99 /min [facility] [place] [facility] Body temperature 2018-10-08 04:15:00 37 Jayla [facility] [place] [facility] Respiratory rate 2018-10-08 04:15:00 20 /min [facility] [place] [facility] Body height 2018-10-08 04:15:00 160 cm [facility] [place] [facility] Body weight 2018-10-08 04:15:00 68.04 kg [facility] [place] [facility] BMI 2018-10-08 04:15:00 26.57 kg/m2 [facility] [place] [facility] Oxygen saturation in 2018-10-08 04:15:00 100 /min University of Arterial blood by [facility] Pulse oximetry Branch Systolic blood 2018-10-08 04:15:00 123 mm[Hg] Univer sity of pressure [place] [facility] Diastolic blood 2018-10-08 04:15:00 80 mm[Hg] Unive rsity of pressure [place] [facility] Heart rate 2018-10-08 04:15:00 99 /min [facility] [place] [facility] Body temperature 2018-10-08 04:15:00 37 Jayla [facility] [place] [facility] Respiratory rate 2018-10-08 04:15:00 20 /min [facility] [place] [facility] Body height 2018-10-08 04:15:00 160 cm [facility] Medical Branch Procedures Procedure Date / Time Performed Performing Clinician Sour e NOTICE OF PRIVACY 2019-04-25 22:39:03 Doctor Unassigned, No [facility] Branch CONSENT/REFUSAL FOR 2019-04-25 22:38:46 Doctor Unassigned, No [facility] [place] DIAGNOSIS AND Name Medical Branch TREATMENT CONSENT/REFUSAL FOR 2018-10-08 04:12:41 Doctor Unassigned, No [facility] [place] DIAGNOSIS AND Name Medical Branch TREATMENT Encounters Start End Encounter Admission Attending Care Care Encounter Source Date/Time Date/Time Type Type Clinicians Facility Department ID 2019-04-25 2019-04-25 Emergency [facility] [id number] 16:50:24 17:51:00 Keanu Yun [id number] [place] [id number] [place] [id number] 2019-04-25 2019-04-25 Emergency [facility] [id number] [facility] 16:50:24 17:51:00 Keanu Yun [id number] ity of [place] [id number] [facility] [id number] [facility] 084 [place] 2019-04-25 2019-04-25 Orders Doctor FOWLER [id number] Univers 00:00:00 00:00:00 Only Unassigned, CIRO [id number] [facility] [id number] [place] [id number] [facility] 009 Branch 2019-04-25 2019-04-25 Orders Doctor FOWLER [id number] 00:00:00 00:00:00 Only Unassigned, CIRO [id number] [facility] [id number] 2018-10-07 2018-10-07 [facility] [id number] [facility] 23:18:07 23:56:00 Ronda Yun [id number] ity of [place] [id number] [facility] [id number] [facility] 084 Branch 2018-10-07 2018-10-07 Emergency Arie [facility] [id number] 23:18:07 23:56:00 Ronda Yun [id number] [place] [id number] [place] [id number] Results This patient has no known results.
--- NOTE | 2021-02-02 17:37 | ER ---
Nurse's Notes [facility] Name: Florencia No Age: 20 yrs Sex: Female : 2000 Arrival Date: 02/02/2021 Time: 17:12 Bed Waiting Private MD: Diagnosis: Rash and other nonspecific skin eruption Presentation: 02/02 17:26 Chief complaint: Patient states: Noticed 'small raised red bumps' on Left arm around vg1 1200 today. Not too sure if its an insect bite. Denies nausea but states feeling dizzy that comes and goes, irritation at sites and throat is 'a little be scratchy'. Coronavirus screen: Vaccine status: Patient reports being unvaccinated. Ebola Screen: Patient negative for fever greater than or equal to 101.5 degrees Fahrenheit, and additional compatible Ebola Virus Disease symptoms. Onset: The symptoms/episode began/occurred today. Anaphylaxis evaluation, no signs or symptoms of anaphylaxis were noted. Initial Sepsis Screen: Does the patient meet any 2 criteria? No. Patient's initial sepsis screen is negative. Does the patient have a suspected source of infection? No. Patient's initial sepsis screen is negative. Risk Assessment: Do you want to hurt yourself or someone else? Patient reports no desire to harm self or others. Onset of symptoms was February 02, 2021. 17:26 Method Of Arrival: Ambulatory [facility] 17:26 Acuity: BRUCE 3 vg1 Triage Assessment: 17:31 General: Appears in no apparent distress. uncomfortable, Behavior is calm, cooperative. vg1 Pain: Complains of pain in right arm and left arm. 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 - Social history:: Smoking status: Patient denies any tobacco usage or history of. Assessment: 18:02 Reassessment: Patient appears in no apparent distress at this time. No changes from vg1 previously documented assessment. Patient and/or family updated on plan of care and expected duration. Pain level reassessed. Patient is alert, oriented x 3, equal unlabored respirations, skin warm/dry/pink. Vital Signs: 17:26 BP 117 / 74; Pulse 85; Resp 16; Temp 98.3; Pulse Ox 99% ; Weight 86.18 kg; Height 5 ft. vg1 3 in. (160.02 cm); Pain 0/10; 17:26 Body Mass Index 33.66 (86.18 kg, 160.02 cm) vg1 ED Course: 17:12 Patient arrived in ED. am2 17:31 Triage completed. vg1 17:31 Arm band placed on. vg1 17:33 Esa Mcbride PA is PHCP. nini 17:33 John Malik MD is Attending Physician. nini Administered Medications: No medications were administered Outcome: 17:36 Discharge ordered by . nini 18:02 Patient left the ED. vg1 Signatures: Esa Mcbried PA PA jmm Moreno, Amanda am2 Shila Byers, RN RN vg1
--- NOTE | 2021-02-02 17:37 | EDPHYS ---
Physician Documentation [facility] Name: Florencia No Age: 20 yrs Sex: Female : 2000 Arrival Date: 02/02/2021 Time: 17:12 Bed Waiting Private MD: ED Physician John Malik HPI: 02/02 17:34 This 20 yrs old Female presents to ER via Ambulatory with complaints of jmm Allergic Reaction. 17:34 The patient presents with rash. Onset: The symptoms/episode began/occurred today. jmm Associated signs and symptoms: Pertinent negatives: abdominal pain, hives, Light headed nausea, rash, shortness of breath, Syncope. Possible causes: The patient has no known obvious cause for the symptoms. The patient has not experienced similar symptoms in the past. Patient denies vomiting or shortness of breath.. CHHA: 17:31 LMP 01/03/2021 vg1 Historical: - Allergies: 17:31 No Known Allergies; vg1 - Home Meds: 17:31 None [Active]; vg1 - PMHx: 17:31 None; vg1 - PSHx: 17:31 None; vg1 - Immunization history:: Client reports having NOT received the Covid vaccine. - Social history:: Smoking status: Patient denies any tobacco usage or history of. ROS: 17:34 Constitutional: Negative for fever, chills, and weight loss, Cardiovascular: Negative jmm for chest pain, palpitations, and edema, Respiratory: Negative for shortness of breath, cough, wheezing, and pleuritic chest pain. 17:34 Skin: Positive for erythema. 17:34 All other systems are negative. Exam: 17:34 Constitutional: This is a well developed, well nourished patient who is awake, alert, jmm and in no acute distress. Head/Face: atraumatic. Eyes: EOMI, no conjunctival erythema appreciated ENT: Moist Mucus Membranes Neck: Trachea midline, Supple Chest/axilla: Normal chest wall appearance and motion. Cardiovascular: Regular rate and rhythm. No edema appreciated Respiratory: Normal respirations, no respiratory distress appreciated Abdomen/GI: Non distended, soft Back: Normal ROM 17:34 Skin: on the right arm and left arm. 17:34 Neuro: Orientation: is normal, Mentation: is normal, Memory: is normal. 17:34 Psych: Behavior/mood is pleasant, cooperative. Vital Signs: 17:26 BP 117 / 74; Pulse 85; Resp 16; Temp 98.3; Pulse Ox 99% ; Weight 86.18 kg; Height 5 ft. vg1 3 in. (160.02 cm); Pain 0/10; 17:26 Body Mass Index 33.66 (86.18 kg, 160.02 cm) vg1 MDM: 17:36 Data reviewed: vital signs, nurses notes. Counseling: I had a detailed discussion with nini the patient and/or guardian regarding: the historical points, exam findings, and any diagnostic results supporting the discharge/admit diagnosis, the need for outpatient follow up, to return to the emergency department if symptoms worsen or persist or if there are any questions or concerns that arise at home. ED course: Patient is alert nontoxic in appearance in the ED. Patient given strict return precautions. Patient understood agrees plan of care.. 17:36 Patient medically screened. [facility] Administered Medications: No medications were administered Disposition: 02/03 09:12 Co-signature as Attending Physician, John Malik MD I agree with the assessment and roosevelt plan of care. Disposition Summary: 02/02/21 17:36 Discharge Ordered Location: Home [facility] Condition: Stable [facility] Diagnosis - Rash and other nonspecific skin eruption [facility] Followup: [facility] - With: Private Physician - When: 2 - 3 days - Reason: Recheck today's complaints, Continuance of care, Re-evaluation by your physician Discharge Instructions: - Discharge Summary Sheet [facility] - Rash, Adult [facility] Forms: - Medication Reconciliation Form [facility] - Thank You Letter [facility] - Antibiotic Education [facility] - Prescription Opioid Use [facility] - Work release form vg1 Prescriptions: - Cephalexin 500 mg Oral Capsule - take 1 capsule by ORAL route every 6 hours for 10 days; 40 capsule; Refills: 0, [facility] Product Selection Permitted - Medrol ([place]) 4 mg Oral Tablets, Dose Pack - take 1 tablet by ORAL route as directed - follow package instructions; 1 [facility] packet; Refills: 0, Product Selection Permitted Signatures: John Malik MD MD cha Mickail, Joel, PA PA jmm Garcia, Victoria, RN RN vg1
[2021-02-02 18:07] VITALS: BP 117/74; TEMP 98.3; O2SAT 99
== END 2021-02-02 18:02 | disposition home or self-care (01) ==
LOC: ER 17:11
DX: R21 Rash and other nonspecific skin eruption (principal)
CPT/HCPCS: 99281

== ENCOUNTER 2022-03-23 18:29 | Emergency (ER) | payer SELFPAY ==
--- OUTSIDE RECORDS SUMMARY | 2022-03-23 18:32 | XMS REPORT | Continuity of Care Document ---
:2000 Author Organization [facility] t Address [address] [place] [address] Care Team Providers Name Role Phone Keanu Mcdonald MD Attending Clinician Doctor Unassigned, [place] Attending Clinician Unavailable Ronda Ngo Attending Clinician Payers Payer Name Policy Type Policy Number Effective Date Expiration Date S ource Problems Condition Condition Condition Status Onset Resolution Last Treating Co mments Source Name Details Category Date Date Treatment Clinician Date No known No known Disease Unive rs active active ity of problems problems [facility] Allergies, Adverse Reactions, Alerts This patient has no known allergies or adverse reactions. Social History Social Habit Start Date Stop Date Quantity Comments Source Sex Assigned At Uni versity [facility] Smoking Status Start Date Stop Date Source Unknown if ever smoked [facility] Medications Ordered Filled Start Stop Current Ordering Indication Dosage Frequency Signature Comments Components Source Medication Medication Date Date Medication? Clinician (SIG) Name Name naproxen Yes [id number] 550mg Take 1 Univers sodium 550 2-21 [id number] tablet by it y of mg tablet 00:00: mouth 2 [place] 00 (two) Medical times Branch daily with meals. codeine-gua 2018-03 Yes [id number] 10mL Take 10 mL Univers ifenesin 0-16 by mouth ity of 10-100 mg/5 00:00: every 6 [place] as mL solution 00 (six) Medical hours as Branch needed for Cough. albuterol 2018-03 Yes [id number] 2{puff} Inhale 2 Univers 90 0-16 Puffs ity of mcg/actuati 00:00: every 6 [place] as on inhaler 00 (six) Medical hours as Branch needed for Wheezing, Shortness of Breath or Chest tightness. codeine-gua 2018- Yes [id number] 10mL Take 10 mL Univers ifenesin 0-16 by mouth ity of 10-100 mg/5 00:00: every 6 [place] as mL solution 00 (six) Medical hours as Branch needed for Cough. albuterol 2018-03 Yes [id number] 2{puff} Inhale 2 Univers 90 0-16 Puffs ity of mcg/actuati 00:00: every 6 [place] as on inhaler 00 (six) Medical hours as Branch needed for Wheezing, Shortness of Breath or Chest tightness. Vital Signs Vital Name Observation Time Observation Value Comments Source Systolic blood 2019-04-25 22:48:00 132 mm[Hg] [facility] Diastolic blood 2019-04-25 22:48:00 77 mm[Hg] [facility] Heart rate 2019-04-25 22:48:00 97 /min [facility] Body temperature 2019-04-25 22:48:00 37.06 Jayla [facility] Respiratory rate 2019-04-25 22:48:00 16 /min [facility] Body height 2019-04-25 22:48:00 160 cm [facility] Body weight 2019-04-25 22:48:00 72.576 kg [facility] BMI 2019-04-25 22:48:00 28.34 kg/m2 [facility] Oxygen saturation in 2019-04-25 22:48:00 99 /min [facility] Arterial blood by [facility] Pulse oximetry Branch Systolic blood 2019-04-25 22:48:00 132 mm[Hg] [facility] Diastolic blood 2019-04-25 22:48:00 77 mm[Hg] [facility] Heart rate 2019-04-25 22:48:00 97 /min [facility] Body temperature 2019-04-25 22:48:00 37.06 [facility]la [facility] Res[facility] rate 2019-04-25 22:48:00 16 /min [facility] Body height 2019-04-25 22:48:00 160 cm [facility] [place] [facility] Body weight 2019-04-25 22:48:00 72.576 kg [facility] [place] [facility] BMI 2019-04-25 22:48:00 28.34 kg/m2 [facility] Oxygen saturation in 2019-04-25 22:48:00 99 /min [facility] of Arterial blood by [place] [facility] Pulse oximetry Branch Body weight 2018-10-08 04:15:00 68.04 kg [facility] [place] [facility] BMI 2018-10-08 04:15:00 26.57 kg/m2 [facility] Oxygen saturation in 2018-10-08 04:15:00 100 /min [facility] Ar[facility] blood by [place] [facility] Pulse oximetry Branch Systolic blood 2018-10-08 04:15:00 123 mm[Hg] [facility] [place] [facility] Diastolic blood 2018-10-08 04:15:00 80 mm[Hg] [facility] [place] [facility] Heart rate 2018-10-08 04:15:00 99 /min [facility] [place] [facility] Body temperature 2018-10-08 04:15:00 37 Jayla [facility] [place] [facility] Respiratory rate 2018-10-08 04:15:00 20 /min [facility] [place] [facility] Body height 2018-10-08 04:15:00 160 cm [facility] [place] [facility] Body weight 2018-10-08 04:15:00 68.04 kg [facility] [place] [facility] BMI 2018-10-08 04:15:00 26.57 kg/m2 [facility] [place] [facility] Oxygen saturation in 2018-10-08 04:15:00 100 /min [facility] Ar[facility]ial blood by [place] [facility] Pulse oximetry Branch Systolic blood 2018-10-08 04:15:00 123 mm[Hg] [facility] [place] [facility] Diastolic blood 2018-10-08 04:15:00 80 mm[Hg] [facility] [place] [facility] Heart rate 2018-10-08 04:15:00 99 /min [facility] [place] [facility] Body temperature 2018-10-08 04:15:00 37 Jayla [facility] [place] [facility] Respiratory rate 2018-10-08 04:15:00 20 /min [facility] [place] [facility] Body height 2018-10-08 04:15:00 160 cm [facility] [place] [facility] [place] Procedures Procedure Date / Time Performed Performing Clinician Sour e NOTICE OF PRIVACY 2019-04-25 22:39:03 Doctor Unassigned, No [facility] PRACTICES Name Medical Branch CONSENT/REFUSAL FOR 2019-04-25 22:38:46 Doctor Unassigned, No [facility] [place] DI[facility] AND Name Medical Branch TREATMENT CONSENT/REFUSAL FOR 2018-10-08 04:12:41 Doctor Unassigned, No [facility] [place] DI[facility] AND Name Medical Branch TREATMENT Encounters Start End Encounter Admission Attending Care Care Encounter Source Date/Time Date/Time Type Type Clinicians Facility Department ID 2019-04-25 2019-04-25 Emergency [facility] [id number] 16:50:24 17:51:00 Keanu Yun [id number] [place] [id number] [place] [id number] 2019-04-25 2019-04-25 Emergency [facility] [id number] [facility] 16:50:24 17:51:00 Keanu Yun [id number] ity of [place] [id number] [facility] [id number] [facility] 084 [place] 2019-04-25 2019-04-25 Orders Doctor FOWLER [id number] Univers 00:00:00 00:00:00 Only Unassigned, CIRO [id number] ity of [place] [facility] [id number] [facility] [id number] [facility] 009 Branch 2019-04-25 2019-04-25 Orders Doctor FOWLER [id number] 00:00:00 00:00:00 Only UnassignedCIRO [id number] [place] [facility] [id number] 2018-10-07 2018-10-07 Emergency [facility] [id number] [facility] 23:18:07 23:56:00 Ronda Yun [id number] ity of [place] [id number] [facility] [id number] [facility] 084 Branch 2018-10-07 2018-10-07 Emergency Marthakira [facility] [id number] 23:18:07 23:56:00 Ronda [place] [id number] [place] [id number] [place] [id number] Results This patient has no known results.
--- NOTE | 2022-03-23 19:10 | ER ---
Nurse's Notes [facility] Name: Florencia No Age: 21 yrs Sex: Female : 2000 Arrival Date: 03/23/2022 Time: 18:32 Bed 11 Private MD: Diagnosis: Streptococcal tonsillitis Presentation: 03/23 18:37 Chief complaint: Patient states: left side of my throat is swollen and hard to swallow ss since Sunday. Coronavirus screen: Client presents with at least one sign or symptom that may indicate coronavirus-19. Ebola Screen: Patient negative for fever greater than or equal to 101.5 degrees Fahrenheit, and additional compatible Ebola Virus Disease symptoms Patient denies exposure to infectious person. Patient denies travel to an Ebola-affected area in the 21 days before illness onset. No symptoms or risks identified at this time. Initial Sepsis Screen: Does the patient meet any 2 criteria? HR > 90 bpm. Does the patient have a suspected source of infection? No. Patient's initial sepsis screen is negative. Risk Assessment: Do you want to hurt yourself or someone else? Patient reports no desire to harm self or others. Onset of symptoms was March 20, 2022. 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 Screenin:40 [facility] ED Fall Risk Assessment (Adult) Score/Fall Risk Level 0 - 2 = Low Risk. ll1 [facility] ED Fall Risk Assessment (Adult) Score/Fall Risk Level 0 - 2 = Low Risk Oriented to surroundings, Maintained a safe environment, Educated pt \T\ family on fall prevention, incl call for assistance when getting out of bed, Hourly rounding (assess needs \T\ fall precautionary measures) done. Abuse screen: Denies threats or abuse. Nutritional screening: No deficits noted. Tuberculosis screening: No symptoms or risk factors identified. Assessment: 18:40 General: Appears uncomfortable, Behavior is calm, cooperative, appropriate for age. ll1 Pain: Complains of pain in throat Quality of pain is described as aching. Respiratory: Airway is patent Respiratory effort is even, unlabored, Breath sounds are clear bilaterally. EENT: Reports pain when swallowing. 18:47 EENT: Throat is clear has enlarged tonsils on right. ll1 Vital Signs: 18:37 BP 114 / 75; Pulse 92; Resp 16; Temp 98.6; Pulse Ox 100% on R/A; Weight 86.18 kg; ss Height 5 ft. 3 in. (160.02 cm); Pain 5/10; 18:37 Body Mass Index 33.66 (86.18 kg, 160.02 cm) ED Course: 18:32 Patient arrived in ED. rg4 18:38 Triage completed. ss 18:38 Arm band placed on. ss 18:39 Ravi Maguire, RN is Primary Nurse. ll1 18:40 Michelle Tyler FNP-C is PHCP. snw 18:40 Nura Fonseca MD is Attending Physician. snw 18:40 Patient placed in an exam room, on a stretcher. ll1 18:41 Patient has correct armband on for positive identification. Bed in low position. Call 1 light in reach. Cardiac monitoring not applicable on this patient. 19:04 Strep Sent. ll1 19:24 No provider procedures requiring assistance completed. Patient did not have IV access jb4 during this emergency room visit. Administered Medications: 19:20 Drug: predniSONE 40 mg Route: PO; jb4 19:23 Follow up: Response: Medication administered at discharge. jb4 19:20 Drug: Pepcid (famotidine) 20 mg Route: PO; jb4 19:23 Follow up: Response: Medication administered at discharge. jb4 19:23 Not Given (Duplicate Order): Augmentin (Amoxicillin-Clavulanate) 500 mg PO once jb4 19:23 Drug: Augmentin (Amoxicillin-Clavulanate) 875 mg Route: PO; jb4 19:23 Follow up: Response: Medication administered at discharge. jb4 Medication: 18:41 VIS not applicable for this client. ll1 Outcome: 19:10 Discharge ordered by . snw 19:24 Discharged to home ambulatory. jb4 19:24 Condition: stable 19:24 Discharge instructions given to patient, Instructed on discharge instructions, follow up and referral plans. medication usage, Demonstrated understanding of instructions, follow-up care, medications, Prescriptions given X 3. 19:24 Patient left the ED. jb4 Signatures: Michelle Tyler, VOICE PATHOLOGIST-C VOICE PATHOLOGIST-Ameliaw Sarai Reid, RN RN ss Dayana Byers rg4 Gonzalez Moreno RN RN jb4 Ravi Maguire RN RN ll1 Corrections: (The following items were deleted from the chart) 18:39 18:37 Pulse 104bpm; Resp 16bpm; Pulse Ox 100% RA; Temp 98.6F; 86.18 kg; Height 5 ft. 3 ss in.; BMI: 33.6; Pain 5/10; ss
--- NOTE | 2022-03-23 19:10 | EDPHYS ---
Physician Documentation [facility] Name: Florencia No Age: 21 yrs Sex: Female : 2000 Arrival Date: 03/23/2022 Time: 18:32 Bed 11 Private MD: ED Physician Nura Fonseca HPI: 03/23 20:08 This 21 yrs old Female presents to ER via Ambulatory with complaints of Sore snw Throat. 20:08 The patient presents with sore throat. The patient describes throat pain as dry, raw, snw scratchy. Onset: The symptoms/episode began/occurred acutely, suddenly. Severity of symptoms: At their worst the symptoms were moderate. The patient has not experienced similar symptoms in the past. The patient has not recently seen a physician. SHEEP BONER: 18:38 LMP 03/01/2022 ss Historical: - Allergies: 18:38 No Known Allergies; ss - Home Meds: 18:38 None [Active]; ss - PMHx: 18:38 None; ss - PSHx: 18:38 None; ss - Social history:: Smoking status: Patient denies any tobacco usage or history of. ROS: 20:08 Constitutional: Negative for fever, chills, and weight loss, Eyes: Negative for injury, snw pain, redness, and discharge, Neck: Negative for injury, pain, and swelling, Cardiovascular: Negative for chest pain, palpitations, and edema, Respiratory: Negative for shortness of breath, cough, wheezing, and pleuritic chest pain, Abdomen/GI: Negative for abdominal pain, nausea, vomiting, diarrhea, and constipation, Back: Negative for injury and pain, : Negative for injury, bleeding, discharge, and swelling, MS/Extremity: Negative for injury and deformity, Skin: Negative for injury, rash, and discoloration, Neuro: Negative for headache, weakness, numbness, tingling, and seizure. 20:08 ENT: Positive for ear pain, sore throat. Exam: 20:07 Constitutional: This is a well developed, well nourished patient who is awake, alert, snw and in no acute distress. Head/Face: Normocephalic, atraumatic. Eyes: Pupils equal round and reactive to light, extra-ocular motions intact. Lids and lashes normal. Conjunctiva and sclera are non-icteric and not injected. Cornea within normal limits. Periorbital areas with no swelling, redness, or edema. Neck: Trachea midline, no thyromegaly or masses palpated, and no cervical lymphadenopathy. Supple, full range of motion without nuchal rigidity, or vertebral point tenderness. No Meningismus. Chest/axilla: Normal chest wall appearance and motion. Nontender with no deformity. No lesions are appreciated. Cardiovascular: Regular rate and rhythm with a normal S1 and S2. No gallops, murmurs, or rubs. Normal PMI, no JVD. No pulse deficits. Respiratory: Lungs have equal breath sounds bilaterally, clear to auscultation and percussion. No rales, rhonchi or wheezes noted. No increased work of breathing, no retractions or nasal flaring. Abdomen/GI: Soft, non-tender, with normal bowel sounds. No distension or tympany. No guarding or rebound. No evidence of tenderness throughout. Back: No spinal tenderness. No costovertebral tenderness. Full range of motion. Skin: Warm, dry with normal turgor. Normal color with no rashes, no lesions, and no evidence of cellulitis. MS/ Extremity: Pulses equal, no cyanosis. Neurovascular intact. Full, normal range of motion. Neuro: Awake and alert, GCS 15, oriented to person, place, time, and situation. Cranial nerves II-XII grossly intact. Motor strength 5/5 in all extremities. Sensory grossly intact. Cerebellar exam normal. Normal gait. Psych: Awake, alert, with orientation to person, place and time. Behavior, mood, and affect are within normal limits. 20:07 ENT: TM's: are normal, Nose: is normal, Mouth: is normal, Posterior pharynx: Tonsils: bilaterally enlarged, with erythema, Voice: is normal. Vital Signs: 18:37 BP 114 / 75; Pulse 92; Resp 16; Temp 98.6; Pulse Ox 100% on R/A; Weight 86.18 kg; ss Height 5 ft. 3 in. (160.02 cm); Pain 5/10; 18:37 Body Mass Index 33.66 (86.18 kg, 160.02 cm) ss MDM: 18:40 Patient medically screened. snw 20:07 Differential diagnosis: Allergic rhinitis, epiglottitis, group A strep tonsillitis, snw pharyngitis. Data reviewed: vital signs, nurses notes. I considered the following discharge prescriptions or medication management in the emergency department Medications were administered in the Emergency Department. See MAR. Counseling: I had a detailed discussion with the patient and/or guardian regarding: the historical points, exam findings, and any diagnostic results supporting the discharge/admit diagnosis, lab results, the need for outpatient follow up, for definitive care, to return to the emergency department if symptoms worsen or persist or if there are any questions or concerns that arise at home. Special discussion: Based on the history and exam findings, there is no indication for further emergent testing or inpatient evaluation. I discussed with the patient/guardian the need to see the primary care provider for further evaluation of the symptoms. 03/23 18:40 Order name: Strep; Complete Time: 19:06 snw Administered Medications: 19:20 Drug: predniSONE 40 mg Route: PO; jb4 19:23 Follow up: Response: Medication administered at discharge. jb4 19:20 Drug: Pepcid (famotidine) 20 mg Route: PO; jb4 19:23 Follow up: Response: Medication administered at discharge. jb4 19:23 Not Given (Duplicate Order): Augmentin (Amoxicillin-Clavulanate) 500 mg PO once jb4 19:23 Drug: Augmentin (Amoxicillin-Clavulanate) 875 mg Route: PO; jb4 19:23 Follow up: Response: Medication administered at discharge. jb4 Disposition Summary: 03/23/22 19:10 Discharge Ordered Location: Home snw Condition: Stable snw Diagnosis - Streptococcal tonsillitis snw Followup: snw - With: Emergency Department - When: As needed - Reason: Worsening of condition Followup: snw - With: Private Physician - When: 2 - 3 days - Reason: Recheck today's complaints, Continuance of care, Re-evaluation by your physician Discharge Instructions: - Discharge Summary Sheet snw - Strep Throat, Adult snw - Rehydration, Adult snw Forms: - Medication Reconciliation Form snw - Thank You Letter snw - Antibiotic Education snw - Prescription Opioid Use snw - Work release form snw Prescriptions: - Augmentin 875-125 mg Oral Tablet - take 1 tablet by ORAL route every 12 hours for 10 days; 20 tablet; Refills: 0, snw Product Selection Permitted - Prednisone 20 mg Oral Tablet - take 2 tablets by ORAL route once daily for 5 days; 10 tablet; Refills: 0, snw Product Selection Permitted - Pepcid 20 mg Oral Tablet - take 1 tablet by ORAL route once daily; 20 tablet; Refills: 0, Product snw Selection Permitted Signatures: Dispatcher [employer] Michelle Godinez FNP-C FURNITURE REMOVALIST'S ASSISTANT-Ameliaw Sarai Reid RN RN ss Gonzalez Moreno RN RN jb4
[2022-03-23] MEDS ORDERED: predniSONE 20 MG TAB ONE (19:15)
[2022-03-23] MEDS ORDERED: FAMOTIDINE 20 MG TAB ONE (19:15)
[2022-03-23] MEDS ORDERED: AMOX/K CLAV 875 MG TAB ONE (19:24)
[2022-03-23 20:36] VITALS: BP 114/75; TEMP 98.6; O2SAT 100
== END 2022-03-23 19:24 | disposition home or self-care (01) ==
LOC: ER 18:29
DX: J03.00 Acute streptococcal tonsillitis, unspecified (principal)
CPT/HCPCS: 87081; 99283; J7512

== ENCOUNTER 2022-03-31 12:50 | Emergency (ER) | payer SELFPAY ==
--- OUTSIDE RECORDS SUMMARY | 2022-03-31 12:53 | XMS REPORT | Continuity of Care Document ---
:2000 Author Organization [facility] t Address [address] [place] [address] Care Team Providers Name Role Phone Keanu Mcdonald MD Attending Clinician Doctor Unassigned, [place] Attending Clinician Unavailable Ronda Ngo Attending Clinician Payers Payer Name Policy Type Policy Number Effective Date Expiration Date S ource Problems Condition Condition Condition Status Onset Resolution Last Treating Co mments Source Name Details Category Date Date Treatment Clinician Date No known No known Disease Unive rs active active ity of problems problems [facility] Allergies, Adverse Reactions, Alerts This patient has no known allergies or adverse reactions. Social History Social Habit Start Date Stop Date Quantity Comments Source Sex Assigned At Uni versity [facility] Smoking Status Start Date Stop Date Source Unknown if ever smoked Universit y of [facility] Medications Ordered Filled Start Stop Current Ordering Indication Dosage Frequency Signature Comments Components Source Medication Medication Date Date Medication? Clinician (SIG) Name Name naproxen Yes [id number] 550mg Take 1 Univers sodium 550 2-21 [id number] tablet by it y of mg tablet 00:00: mouth 2 [place] 00 (two) Medical times Branch daily with meals. codeine-gua 2018-03 Yes [id number] 10mL Take 10 mL Univers ifenesin 0-16 by mouth ity of 10-100 mg/5 00:00: every 6 Thony as mL solution 00 (six) Medical hours as Branch needed for Cough. albuterol 2018-03 Yes [id number] 2{puff} Inhale 2 Univers 90 0-16 Puffs ity of mcg/actuati 00:00: every 6 Thony as on inhaler 00 (six) Medical hours as Branch needed for Wheezing, Shortness of Breath or Chest tightness. codeine-gua 2018- Yes [id number] 10mL Take 10 mL Univers ifenesin 0-16 by mouth ity of 10-100 mg/5 00:00: every 6 Thony as mL solution 00 (six) Medical hours as Branch needed for Cough. albuterol 2018-03 Yes [id number] 2{puff} Inhale 2 Univers 90 0-16 Puffs ity of mcg/actuati 00:00: every 6 Thony as on inhaler 00 (six) Medical hours as Branch needed for Wheezing, Shortness of Breath or Chest tightness. Vital Signs Vital Name Observation Time Observation Value Comments Source Systolic blood 2019-04-25 22:48:00 132 mm[Hg] Univer sity of [facility] Diastolic blood 2019-04-25 22:48:00 77 mm[Hg] Unive rsity of [facility] Heart rate 2019-04-25 22:48:00 97 /min [facility] Body temperature 2019-04-25 22:48:00 37.06 Jayla [facility] Respiratory rate 2019-04-25 22:48:00 16 /min [facility] Body height 2019-04-25 22:48:00 160 cm [facility] Body weight 2019-04-25 22:48:00 72.576 kg [facility] BMI 2019-04-25 22:48:00 28.34 kg/m2 [facility] Oxygen saturation in 2019-04-25 22:48:00 99 /min [facility] Arterial blood by [facility] Pulse oximetry Branch Systolic blood 2019-04-25 22:48:00 132 mm[Hg] Univer sity of [facility] Diastolic blood 2019-04-25 22:48:00 77 mm[Hg] [facility] Heart rate 2019-04-25 22:48:00 97 /min [facility] Body temperature 2019-04-25 22:48:00 37.06 Jayla [facility] 2019-04-25 22:48:00 16 /min [facility] Body height 2019-04-25 22:48:00 160 cm [facility] [place] [facility] Body weight 2019-04-25 22:48:00 72.576 kg [facility] [place] [facility] BMI 2019-04-25 22:48:00 28.34 kg/m2 [facility] [place] [facility] Oxygen saturation in 2019-04-25 22:48:00 [...] Branch Body height 2018-10-08 04:15:00 160 cm [facility] [place] [facility] [place] Procedures Procedure Date / Time Performed Performing Clinician Sour e NOTICE OF PRIVACY 2019-04-25 22:39:03 Doctor Unassigned, No [facility] PRACTICES Name Medical Branch CONSENT/REFUSAL FOR 2019-04-25 22:38:46 Doctor Unassigned, No [facility] [place] DIAGNOSIS AND Name Medical Branch TREATMENT CONSENT/REFUSAL FOR 2018-10-08 04:12:41 Doctor Unassigned, No [facility] [place] DIAGNOSIS AND Name Medical Branch TREATMENT Encounters Start End Encounter Admission Attending Care Care Encounter Source Date/Time Date/Time Type Type Clinicians Facility Department ID 2019-04-25 2019-04-25 Emergency [facility] [id number] 16:50:24 17:51:00 Keanu Yun [id number] [place] [id number] [place] [id number] 08 2019-04-25 2019-04-25 Emergency [facility] [id number] [facility] 16:50:24 17:51:00 Keanu Yun [id number] ity of [place] [id number] [facility] [id number] [facility] 084 [place] 2019-04-25 2019-04-25 Orders Doctor FOWLER [id number] Univers 00:00:00 00:00:00 Only Unassigned, CIRO [id number] ity of [place] [facility] [id number] [facility] [id number] [facility] 009 Branch 2019-04-25 2019-04-25 Orders Doctor FOWLER [id number] 00:00:00 00:00:00 Only UnassignedCIRO [id number] [place] [facility] [id number] [id number] 2018-10-07 2018-10-07 Emergency [facility] [id number] [facility] 23:18:07 23:56:00 Ronda Yun [id number] ity of [place] [id number] [facility] [id number] [facility] 084 Branch 2018-10-07 2018-10-07 Emergency Marthakira [facility] [id number] 23:18:07 23:56:00 Ronda Turnerton [id number] [place] [id number] [place] [id number] [id number] Results This patient has no known results.
--- NOTE | 2022-03-31 13:54 | ER ---
[facility] Flore[facility] No Age: 21 yrs Sex: Female : 2000 Arrival Date: 03/31/2022 Time: 12:53 Bed 12 Private MD: Diagnosis: Otitis media, unspecified, left ear Presentation: 03/31 12:55 Chief complaint: Left ear pain, cough, and runny nose x 1 week. Denies fever. hb Coronavirus screen: Client presents with at least one sign or symptom that may indicate coronavirus-19. Standard/surgical mask placed on the client. Provider contacted for isolation considerations. Ebola Screen: No symptoms or risks identified at this time. Initial Sepsis Screen: Does the patient meet any 2 criteria? No. Patient's initial sepsis screen is negative. Does the patient have a suspected source of infection? No. Patient's initial sepsis screen is negative. Risk Assessment: Do you want to hurt yourself or someone else? Patient reports no desire to harm self or others. Onset of symptoms was March 24, 2022. 12:55 Method Of Arrival: Ambulatory hb 12:55 Acuity: BRUCE 4 hb Historical: - Allergies: 12:56 No Known Allergies; hb - Immunization history:: Adult Immunizations up to date. - Social history:: Smoking status: Patient denies any tobacco usage or history of. Vital Signs: 12:55 BP 128 / 78; Pulse 98; Resp 16; Temp 98.7; Pulse Ox 100% on R/A; Weight 86.18 kg; hb Height 5 ft. 3 in. (160.02 cm); Pain 6/10; 12:55 Body Mass Index 33.66 (86.18 kg, 160.02 cm) hb ED Course: 12:53 Patient arrived in ED. mr 12:56 Triage completed. hb 12:57 Arm band placed on. hb 13:05 John Santana PA is PHCP. cp 13:05 Daquan Horne MD is Attending Physician. cp Administered Medications: 14:52 Drug: Rocephin (cefTRIAXone) 1 grams Route: IM; Site: left deltoid; hb 14:52 Drug: Decadron (dexamethasone) 10 mg Route: IM; Site: right deltoid; hb Outcome: 13:54 Discharge ordered by MD. cp 14:52 Discharged to home ambulatory. hb 14:52 Condition: stable 14:52 Discharge instructions given to patient, Instructed on discharge instructions, follow up and referral plans. medication usage, Demonstrated understanding of instructions, follow-up care, medications, Prescriptions given X 2. 14:53 Patient left the ED. hb Signatures: Melida Charles mr John Santana PA PA cp Baxter, Heather, RN RN hb Corrections: (The following items were deleted from the chart) 14:52 14:52 Rocephin (cefTRIAXone) 1 grams IM in right deltoid hb hb
--- NOTE | 2022-03-31 13:55 | EDPHYS ---
Physician Documentation [facility] Name: Florencia No Age: 21 yrs Sex: Female : 2000 Arrival Date: 03/31/2022 Time: 12:53 Bed 12 Private MD: ED Physician Daquan Horne HPI: 03/31 13:20 This 21 yrs old Female presents to ER via Ambulatory with complaints of Ear cp Pain. 13:20 The patient presents with pain, that is acute. The complaints affect the left ear. cp Onset: The symptoms/episode began/occurred 1 week(s) ago. 13:20 Associated signs and symptoms: Pertinent positives: rhinorrhea, Pertinent negatives: cp fever, shortness of breath. Severity of symptoms: in the emergency department the symptoms are unchanged. Currently taking prescribed Amoxicillin and recently finished prescribed steroids. Historical: - Allergies: 12:56 No Known Allergies; hb - Immunization history:: Adult Immunizations up to date. - Social history:: Smoking status: Patient denies any tobacco usage or history of. ROS: 13:25 Constitutional: Negative for body aches, chills, fever, poor PO intake. cp 13:25 Eyes: Negative for injury, pain, redness, and discharge. cp 13:25 ENT: Positive for ear pain, rhinorrhea, Negative for drainage from ear(s), sore throat, difficulty swallowing, difficulty handling secretions. 13:25 Cardiovascular: Negative for chest pain. 13:25 Respiratory: Negative for shortness of breath, wheezing. 13:25 Abdomen/GI: Negative for abdominal pain, nausea, vomiting, and diarrhea. 13:25 Neuro: Negative for altered mental status, headache, weakness. 13:25 All other systems are negative. Exam: 13:30 Constitutional: The patient appears in no acute distress, alert, awake, non-toxic, well cp developed, well nourished. 13:30 Head/Face: Normocephalic, atraumatic. cp 13:30 Eyes: Periorbital structures: appear normal, Conjunctiva: normal, no exudate, no injection, Sclera: no appreciated abnormality, Lids and lashes: appear normal, bilaterally. 13:30 ENT: External ear(s): are unremarkable, Ear canal(s): are normal, clear, TM's: bulging, is not appreciated, on the left, erythema, that is mild, on the left, Examination of the other ear shows no obvious abnormality, Nose: is normal, Posterior pharynx: is normal, airway is patent. 13:30 Neck: ROM/movement: is normal, is supple, without pain, no range of motions limitations, Lymph nodes: no appreciated lymphadenopathy. 13:30 Chest/axilla: Inspection: normal. 13:30 Cardiovascular: Rate: normal. 13:30 Respiratory: the patient does not display signs of respiratory distress, Respirations: normal, no use of accessory muscles, no retractions, labored breathing, is not present. 13:30 Skin: cellulitis, is not appreciated, no rash present. Vital Signs: 12:55 BP 128 / 78; Pulse 98; Resp 16; Temp 98.7; Pulse Ox 100% on R/A; Weight 86.18 kg; hb Height 5 ft. 3 in. (160.02 cm); Pain 6/10; 12:55 Body Mass Index 33.66 (86.18 kg, 160.02 cm) hb MDM: 13:12 Patient medically screened. cp 13:30 Differential diagnosis: otitis media, otitis externa, ruptured TM, foreign body, acute cp otalgia, cerumen impaction, barotrauma . 13:53 Data reviewed: vital signs, nurses notes. cp 13:53 I considered the following discharge prescriptions or medication management in the cp emergency department Medications were administered in the Emergency Department. See MAR. Counseling: I had a detailed discussion with the patient and/or guardian regarding: the historical points, exam findings, and any diagnostic results supporting the discharge/admit diagnosis, the need for outpatient follow up, a family practitioner, to return to the emergency department if symptoms worsen or persist or if there are any questions or concerns that arise at home. Response to treatment: the patient's symptoms have mildly improved after treatment, and as a result, I will discharge patient. Administered Medications: 14:52 Drug: Rocephin (cefTRIAXone) 1 grams Route: IM; Site: left deltoid; hb 14:52 Drug: Decadron (dexamethasone) 10 mg Route: IM; Site: right deltoid; hb Disposition Summary: 03/31/22 13:54 Discharge Ordered Location: Home cp Problem: an ongoing problem cp Symptoms: have improved cp Condition: Stable cp Diagnosis - Otitis media, unspecified, left ear cp Followup: cp - With: Private Physician - When: 2 - 3 days - Reason: Recheck today's complaints Discharge Instructions: - Discharge Summary Sheet cp - Otitis Media, Adult cp Forms: - Medication Reconciliation Form cp - Work release form aa5 - Thank You Letter cp - Antibiotic Education cp - Prescription Opioid Use cp Prescriptions: - Medrol ([place]) 4 mg Oral Tablets, Dose Pack - take 1 tablet by ORAL route as directed - follow package instructions; 1 cp packet; Refills: 0, Product Selection Permitted - Flonase Allergy Relief 50 mcg/actuation Nasal spray,suspension - inhale 1 spray by INTRANASAL route once daily; 1 Device; Refills: 0, Product cp Selection Permitted Signatures: John Santana PA PA cp Vida Cortez, RN RN
[2022-03-31] MEDS ORDERED: CEFTRIAXONE 1000 MG/VIAL ONE (14:46)
[2022-03-31] MEDS ORDERED: dexAMETHasone 10 MG/ML VIAL ONE (14:46)
[2022-03-31] MEDS ORDERED: LIDOCAINE 1% MPF 2 ML AMPULE ONE (14:46)
[2022-03-31 15:44] VITALS: BP 128/78; TEMP 98.7; O2SAT 100
== END 2022-03-31 14:53 | disposition home or self-care (01) ==
LOC: ER 12:50
DX: H66.92 Otitis media, unspecified, left ear (principal)
CPT/HCPCS: 96372; 99283; J1100

== ENCOUNTER 2022-10-18 23:09 | Emergency (ER) | payer SELFPAY ==
--- OUTSIDE RECORDS SUMMARY | 2022-10-18 23:12 | XMS REPORT | Continuity of Care Document ---
:2000 Author Organization [facility] t Address [address] [place] [address] [place] [address] Care Team Providers Name Role Phone Keanu Mcdonald MD Attending Clinician Doctor Unassigned, [place] Attending Clinician Unavailable Ronda Ngo Attending Clinician Payers Payer Name Policy Type Policy Number Effective Date Expiration Date S ource Problems Condition Condition Condition Status Onset Resolution Last Treating Co mments Source Name Details Category Date Date Treatment Clinician Date No known No known Disease Unive rs active active ity of problems problems [facility] [place] Allergies, Adverse Reactions, Alerts This patient has no known allergies or adverse reactions. Social History Social Habit Start Date Stop Date Quantity Comments Source Sex Assigned At Uni versity [facility] Smoking Status Start Date Stop Date Source Unknown if ever smoked [facility]it y of [facility] [place] Medications Ordered Filled Start Stop Current Ordering Indication Dosage Frequency Signature Comments Components Source Medication Medication Date Date Medication? Clinician (SIG) Name Name naproxen Yes [id number] 550mg Take 1 Univers sodium 550 2-21 [id number] tablet by it y of mg tablet 00:00: mouth 2 [place] 00 (two) Medical times Branch daily with meals. codeine-gua 2018-03 Yes [id number] 10mL Take 10 mL Univers ifenesin 0-16 by mouth ity of 10-100 mg/5 00:00: every 6 Th[place] as mL solution 00 (six) Medical hours as Branch needed for Cough. albuterol 2018-03 Yes [id number] 2{puff} Inhale 2 Univers 90 0-16 Puffs ity of mcg/actuati 00:00: every 6 Th[place] as on inhaler 00 (six) Medical hours as Branch needed for Wheezing, Shortness of Breath or Chest tightness. codeine-gua 2018- Yes [id number] 10mL Take 10 mL Univers ifenesin 0-16 by mouth ity of 10-100 mg/5 00:00: every 6 Thony as mL solution 00 (six) Medical hours as Branch needed for Cough. albuterol 2018-03 Yes [id number] 2{puff} Inhale 2 Univers 90 0-16 Puffs ity of mcg/actuati 00:00: every 6 Thony as on inhaler 00 (six) Medical hours as Branch needed for Wheezing, Shortness of Breath or Chest tightness. Vital Signs Vital Name Observation Time Observation Value Comments Source Systolic blood 2019-04-25 22:48:00 132 mm[Hg] Univer sity of [facility] Diastolic blood 2019-04-25 22:48:00 77 mm[Hg] Unive rsity of [facility] Heart rate 2019-04-25 22:48:00 97 /min [facility] Body temperature 2019-04-25 22:48:00 37.06 Jayla [facility] Respiratory rate 2019-04-25 22:48:00 16 /min [facility] Body height 2019-04-25 22:48:00 160 cm [facility] Body weight 2019-04-25 22:48:00 72.576 kg [facility] BMI 2019-04-25 22:48:00 28.34 kg/m2 [facility] Oxygen saturation in 2019-04-25 22:48:00 99 /min [facility] Arterial blood by [facility] Pulse oximetry Branch Systolic blood 2019-04-25 22:48:00 132 mm[Hg] Univer sity of [facility] Diastolic blood 2019-04-25 22:48:00 77 mm[Hg] [facility] Heart rate 2019-04-25 22:48:00 97 /min [facility] Body temperature 2019-04-25 22:48:00 37.06 Jayla [facility] [facility] Respiratory rate 2019-04-25 22:48:00 16 /min [facility] Body height 2019-04-25 22:48:00 160 cm [facility] [place] [facility] Body weight 2019-04-25 22:48:00 72.576 kg [facility] [place] [facility] BMI 2019-04-25 22:48:00 28.34 kg/m2 [facility] [place] [facility] Oxygen saturation in 2019-04-25 22:48:00 99 /min [facility] of Arterial blood by [place] [facility] Pulse oximetry Branch Body weight 2018-10-08 04:15:00 68.04 kg [facility] [place] [facility] BMI 2018-10-08 04:15:00 26.57 kg/m2 [facility] [place] [facility] Oxygen saturation in 2018-10-08 04:15:00 100 /min [facility] of Arterial blood by [place] [facility] Pulse oximetry Branch Systolic blood 2018-10-08 04:15:00 123 mm[Hg] Univer [facility]ity [facility] [place] [facility] Diastolic blood 2018-10-08 04:15:00 80 mm[Hg] Unive rsity [facility] [place] [facility] Heart rate 2018-10-08 04:15:00 99 /min [facility] [place] [facility] Body temperature 2018-10-08 04:15:00 37 Jayla [facility] [place] [facility] Respiratory rate 2018-10-08 04:15:00 20 /min [facility] [place] [facility] Body height 2018-10-08 04:15:00 160 cm [facility] [place] [facility] Body weight 2018-10-08 04:15:00 68.04 kg [facility] [place] [facility] BMI 2018-10-08 04:15:00 26.57 kg/m2 [facility] [place] [facility] Oxygen saturation in 2018-10-08 04:15:00 100 /min University of Arterial blood by [place] [facility] Pulse oximetry Branch Systolic blood 2018-10-08 04:15:00 123 mm[Hg] Univer [facility]ity [facility] [place] [facility] Diastolic blood 2018-10-08 04:15:00 80 mm[Hg] Unive [facility]ity [facility] [place] [facility] Heart rate 2018-10-08 04:15:00 99 /min [facility] [place] [facility] Body temperature 2018-10-08 04:15:00 37 Jayla [facility] [place] [facility] Respiratory rate 2018-10-08 04:15:00 20 /min [facility] [place] [facility] Body height 2018-10-08 04:15:[address] [facility] [place] [facility] [place] Procedures Procedure Date / Time Performed Performing Clinician Sour e NOTICE OF PRIVACY 2019-04-25 22:39:03 Doctor Unassigned, No [facility] PRACTICES Name Medical Branch CONSENT/REFUSAL FOR 2019-04-25 22:38:46 Doctor Unassigned, No [facility] [place] DIAGNOSIS AND Name Medical Branch TREATMENT CONSENT/REFUSAL FOR 2018-10-08 04:12:41 Doctor Unassigned, No [facility] [place] DIAGNOSIS AND Name Medical Branch TREATMENT Encounters Start End Encounter Admission Attending Care Care Encounter Source Date/Time Date/Time Type Type Clinicians Facility Department ID 2019-04-25 2019-04-25 Emergency [facility] [id number] 16:50:24 17:51:00 Keanu Yun [id number] [place] [id number] [place] [id number] 2019-04-25 2019-04-25 Emergency [facility] [id number] [facility] 16:50:24 17:51:00 Keanu Yun [id number] ity of [place] [id number] [facility] [id number] [facility] 084 [place] 2019-04-25 2019-04-25 Orders Doctor FOWLER [id number] Univers 00:00:00 00:00:00 Only Unassigned, CRIO [id number] ity of [place] [facility] [id number] [facility] [id number] [facility] 009 [place] 2019-04-25 2019-04-25 Orders Doctor FOWLER [id number] 00:00:00 00:00:00 Only UnassignedCIRO [id number] [place] [facility] [id number] 2018-10-07 2018-10-07 Emergency [facility] [id number] [facility] 23:18:07 23:56:00 Ronda Yun [id number] ity of [place] [id number] [facility] [id number] [facility] 084 [place] 2018-10-07 2018-10-07 Emergency Marthakira [facility] [id number] 23:18:07 23:56:00 Ronda [place] [id number] [place] [id number] [place] [id number] 084 Results This patient has no known results.
[2022-10-19 00:03] LABS: Absolute Lymphocytes (CBC) 1.8 K/uL (0.7-4.9); Hematocrit 37.1 % (36.0-45.0); Lymphocytes % 31.4 % (15.3-44.8); MCV 85.2 fL (80-100); MPV 8.6 fL (7.6-11.3); Platelets 280 thou/uL (152-406); RBC Red Blood Cell Count 4.36 M/uL (3.86-4.86)
[2022-10-19 00:13] LABS: BUN Blood Urea Nitrogen 14 mg/dL (7-18); Bicarbonate 28 mEq/L (21-32); Glomerular Filtration Rate 126 ml/min (=/>90); Glucose Level 99 mg/dL (74-106); Potassium 3.4 mEq/L (3.5-5.1); Sodium Level 136 mEq/L (136-145)
[2022-10-19 00:15] LABS: Troponin High Sensitivity < 3.0 pg/mL (<58.9)
--- NOTE | 2022-10-19 02:58 | EDPHYS ---
Physician Documentation [facility] Name: Florencia No Age: 22 yrs Sex: Female : 2000 Arrival Date: 10/18/2022 Time: 23:09 Bed 5 Private MD: ED Physician Nura Fonseca HPI: 10/19 01:45 This 22 yrs old Female presents to ER via Ambulatory with complaints of Chest kdr Pain. 01:45 Patient complains of intermittent sharp chest pain that began several hours prior to kdr arrival. 01:51 Onset: The symptoms/episode began/occurred gradually, 2 day(s) ago, Patient states that kdr she has had intermittent chest pain for years but it has become more persistent the last 2 days and concerning. Since she had not had a previous evaluated she was concerned and wanted to get some testing done. 03:04 Severity of symptoms: At their worst the symptoms were mild moderate just prior to kdr arrival, in the emergency department the symptoms have improved moderately. The patient has experienced similar episodes in the past, multiple times, chronically, Has been having same or similar discomfort for many years. It is perhaps a little bit worse recently but otherwise something she is not unfamiliar with but simply had not been evaluated for at this time. The patient has not recently seen a physician. 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 - Social history:: Smoking status: Patient denies any tobacco usage or history of. ROS: 10/19 03:04 Constitutional: Negative for fever, chills, and weight loss, Eyes: Negative for injury, kdr pain, redness, and discharge, Neck: Negative for injury, pain, and swelling, Respiratory: Negative for shortness of breath, cough, wheezing, and pleuritic chest pain, Abdomen/GI: Negative for abdominal pain, nausea, vomiting, diarrhea, and constipation, Back: Negative for injury and pain, : Negative for injury, bleeding, discharge, and swelling, MS/Extremity: Negative for injury and deformity, Skin: Negative for injury, rash, and discoloration. Cardiovascular: Positive for chest pain, Negative for edema, orthopnea, palpitations. Exam: 03:04 Constitutional: This is a well developed, well nourished patient who is awake, alert, kdr and in no acute distress. Head/Face: Normocephalic, atraumatic. Eyes: Pupils equal round and reactive to light, extra-ocular motions intact. Lids and lashes normal. Conjunctiva and sclera are non-icteric and not injected. Cornea within normal limits. Periorbital areas with no swelling, redness, or edema. Neck: Trachea midline, no thyromegaly or masses palpated, and no cervical lymphadenopathy. Supple, full range of motion without nuchal rigidity, or vertebral point tenderness. No Meningismus. Chest/axilla: Normal chest wall appearance and motion. Nontender with no deformity. No lesions are appreciated. Cardiovascular: Regular rate and rhythm with a normal S1 and S2. No gallops, murmurs, or rubs. Normal PMI, no JVD. No pulse deficits. Respiratory: Lungs have equal breath sounds bilaterally, clear to auscultation and percussion. No rales, rhonchi or wheezes noted. No increased work of breathing, no retractions or nasal flaring. Abdomen/GI: Soft, non-tender, with normal bowel sounds. No distension or tympany. No guarding or rebound. No evidence of tenderness throughout. Back: No spinal tenderness. No costovertebral tenderness. Full range of motion. Skin: Warm, dry with normal turgor. Normal color with no rashes, no lesions, and no evidence of cellulitis. MS/ Extremity: Pulses equal, no cyanosis. Neurovascular intact. Full, normal range of motion. Neuro: Awake and alert, GCS 15, oriented to person, place, time, and situation. Cranial nerves II-XII grossly intact. Motor strength 5/5 in all extremities. Sensory grossly intact. Cerebellar exam normal. Normal gait. Psych: Awake, alert, with orientation to person, place and time. Behavior, mood, and affect are within normal limits. Vital Signs: 10/18 23:25 BP 141 / 83; Pulse 83; Resp 14; Temp 98.4(O); Pulse Ox 99% on R/A; Weight 99.79 kg; hb Height 5 ft. 3 in. ; Pain 6/10; 10/19 01:06 BP 117 / 78; Pulse 86; Resp 18 S; kd3 01:20 BP 94 / 76; Pulse 73; Resp 16; Pulse Ox 98% on R/A; kd3 02:27 BP 124 / 85; Pulse 69; Resp 17 S; Pulse Ox 99% on R/A; lg3 03:10 BP 120 / 79; Pulse 78; Resp 18; Pulse Ox 99% on R/A; kl 10/18 23:25 Body Mass Index 38.97 (99.79 kg, 160.02 cm) hb 10/18 23:25 Pain Scale: Adult hb MDM: 02:57 Patient medically screened. kdr 03:04 Data reviewed: vital signs, nurses notes, lab test result(s), radiologic studies. [facility] 10/18 23:40 Order name: Basic Metabolic Panel; Complete Time: 00:26 [facility] 10/18 23:40 Order name: CBC with Diff; Complete Time: 00:26 [facility] 10/18 23:40 Order name: Troponin HS; Complete Time: 00:26 [facility] 10/19 00:26 Order name: Troponin High Sensitivity; Complete Time: 02:55 kdr 10/18 23:40 Order name: XRAY Chest (1 view) [facility] 10/18 23:40 Order name: EKG; Complete Time: 23:40 [facility] 10/18 23:40 Order name: Cardiac monitoring; Complete Time: 23:40 [facility] 10/18 23:40 Order name: EKG - Nurse/Tech; Complete Time: 23:40 [facility] 10/18 23:40 Order name: IV Saline Lock; Complete Time: 23:40 [facility] 10/18 23:40 Order name: Labs collected and sent; Complete Time: 00:01 [facility] 10/18 23:40 Order name: O2 Per Protocol; Complete Time: 23:40 [facility] 10/18 23:40 Order name: O2 Sat Monitoring; Complete Time: 23:40 [facility] 10/19 00:36 Order name: Misc. Order: Repeat troponin in 2 hours; Complete Time: 02:19 vc1 Administered Medications: 02:00 Not Given (Physician Discretion): Clopidogrel PO [address] [facility] 02:14 Not Given (Physician Discretion): Aspirin PO Chewable Tablet 324 mg PO once; 81 mg kl tablets x 4 Disposition Summary: 10/19/22 02:57 Discharge Ordered Location: Home kdr Problem: new kdr Symptoms: have improved kdr Condition: Stable kdr Diagnosis - Chest pain, unspecified kdr Followup: kdr - With: Private Physician - When: 2 - 3 days - Reason: If symptoms return, Further diagnostic work-up, Recheck today's complaints, Continuance of care, Re-evaluation by your physician Discharge Instructions: - Discharge Summary Sheet kdr - Nonspecific Chest Pain, Adult, [id number] kdr Forms: - Work release form kl - Medication Reconciliation Form kdr - Thank You Letter kdr - Patient Portal Instructions kdr - Leadership Thank You Letter kdr Prescriptions: - Ibuprofen 600 mg Oral Tablet - take 1 tablet by ORAL route every 6 hours As needed take with food; 30 tablet; kdr Refills: 0, Product Selection Permitted - Pepcid 20 mg Oral Tablet - take 1 tablet by ORAL route every 12 hours for 10 days; 20 tablet; Refills: 0, kdr Product Selection Permitted Signatures: Dispatcher [employer] Nura Grijalva MD MD kdr Vida Cortez RN RN Marybeth Bowman RN RN lg3 Nina Jerez RN RN vc1 Anastasiya Maguire RN kl
--- NOTE | 2022-10-19 02:58 | ER ---
Nurse's Notes [facility] Name: Florencia No Age: 22 yrs Sex: Female : 2000 Arrival Date: 10/18/2022 Time: 23:09 Bed 5 Private MD: Diagnosis: Chest pain, unspecified Presentation: 10/18 23:25 Chief complaint: Intermittent midsternal chest pain and palpitations x 2 weeks. Denies hb cough/SOB/nausea. Coronavirus screen: At this time, the client does not indicate any symptoms associated with coronavirus-19. Ebola Screen: No symptoms or risks identified at this time. Initial Sepsis Screen: Does the patient meet any 2 criteria? No. Patient's initial sepsis screen is negative. Does the patient have a suspected source of infection? No. Patient's initial sepsis screen is negative. Risk Assessment: Do you want to hurt yourself or someone else? Patient reports no desire to harm self or others. Onset of symptoms was October 04, 2022. 23:25 Method Of Arrival: Ambulatory hb 23:25 Acuity: BRUCE 3 hb RDA: 23:32 LMP N/A - mb9 Historical: - Allergies: 23:27 No Known Allergies; hb - Home Meds: 23:27 None [Active]; hb - PMHx: 23:27 None; hb - PSHx: 23:27 None; hb - Immunization history:: Adult Immunizations up to date. - Social history:: Smoking status: Patient denies any tobacco usage or history of. Screenin:32 [facility] ED Fall Risk Assessment (Adult) History of falling in the last 3 months, mb9 including since admission No falls in past 3 months (0 pts) Confusion or Disorientation No (0 pts) Intoxicated or Sedated No (0 pts) Impaired Gait No (0 pts) Mobility Assist Device Used No (0 pt) Altered Elimination No (0 pt) Score/Fall Risk Level 0 - 2 = Low Risk Oriented to surroundings, Maintained a safe environment, Educated pt \T\ family on fall prevention, incl call for assistance when getting out of bed. Abuse screen: Denies threats or abuse. Nutritional screening: No deficits noted. Tuberculosis screening: No symptoms or risk factors identified. Assessment: 23:31 General: Appears uncomfortable, Behavior is anxious. Pain: Complains of pain in chest mb9 Pain does not radiate. Pain currently is 5 out of 10 on a pain scale. Quality of pain is described as sharp, shooting, Pain began 2 weeks ago Is intermittent. Neuro: Briseno Agitation-Sedation Scale (RASS): 0 - Alert and Calm Level of Consciousness is awake, alert, obeys commands, Oriented to person, place, time, situation, Appropriate for age. Cardiovascular: Reports chest pain, shortness of breath, Heart tones S1 S2 present Patient's skin is warm and dry. Rhythm is regular. Cardiovascular: Heart tones. Respiratory: Airway is patent Respiratory effort is even, unlabored, Respiratory pattern is regular, symmetrical. Respiratory: Breath sounds are clear bilaterally. GI: Abdomen is round non-distended, Bowel sounds present X 4 quads. Abd is soft and non tender X 4 quads. : No signs and/or symptoms were reported regarding the genitourinary system. EENT: No signs and/or symptoms were reported regarding the EENT system. Derm: Skin is pink, warm \T\ dry. Musculoskeletal: Range of motion: intact in all extremities. 10/19 00:36 Reassessment:. vc1 02:27 Reassessment: Patient appears in no apparent distress at this time. No changes from lg3 previously documented assessment. Patient and/or family updated on plan of care and expected duration. Pain level reassessed. Patient is alert, oriented x 3, equal unlabored respirations, skin warm/dry/pink. Vital Signs: 10/18 23:25 BP 141 / 83; Pulse 83; Resp 14; Temp 98.4(O); Pulse Ox 99% on R/A; Weight 99.79 kg; hb Height 5 ft. 3 in. ; Pain 6/10; 10/19 01:06 BP 117 / 78; Pulse 86; Resp 18 S; kd3 01:20 BP 94 / 76; Pulse 73; Resp 16; Pulse Ox 98% on R/A; kd3 02:27 BP 124 / 85; Pulse 69; Resp 17 S; Pulse Ox 99% on R/A; lg3 03:10 BP 120 / 79; Pulse 78; Resp 18; Pulse Ox 99% on R/A; kl 10/18 23:25 Body Mass Index 38.97 (99.79 kg, 160.02 cm) hb 10/18 23:25 Pain Scale: Adult hb ED Course: 10/18 23:12 Patient arrived in ED. mr 23:12 Nura Fonseca MD is Attending Physician. kdr 23:27 Triage completed. hb 23:27 Arm band placed on. hb 23:31 Melida Moore, SHOSHANA is Primary Nurse. mb9 23:31 Inserted saline lock: 22 gauge in right antecubital area, using aseptic technique. mb9 Blood collected. 23:32 Placed in gown. Bed in low position. Call light in reach. Side rails up X 1. Client mb9 placed on continuous cardiac and pulse oximetry monitoring. NIBP monitoring applied. court monitor on. 23:33 No provider procedures requiring assistance completed. EKG done, by ED staff, reviewed mb9 by Nura Fonseca MD. 23:33 Patient maintains SpO2 saturation greater than 95% on room air. mb9 10/19 00:10 XRAY Chest (1 view) In Process Unspecified. EDMS 03:10 IV discontinued, intact, bleeding controlled, No redness/swelling at site. Pressure kl dressing applied. Administered Medications: 02:00 Not Given (Physician Discretion): Clopidogrel PO 300 mg PO once lg3 02:14 Not Given (Physician Discretion): Aspirin PO Chewable Tablet 324 mg PO once; 81 mg kl tablets x 4 Medication: 10/18 23:33 VIS not applicable for this client. mb9 Outcome: 10/19 02:57 Discharge ordered by . kdr 03:10 Discharged to home ambulatory, with family. kl 03:10 Condition: stable 03:10 Discharge instructions given to patient, Instructed on discharge instructions, follow up and referral plans. medication usage, Demonstrated understanding of instructions, follow-up care, medications, Prescriptions given X 2. 03:10 Patient left the ED. kl Signatures: Dispatcher [employer] EDMS Anastasiya Maguire RN RN kl Rittger, Kevin, MD MD kdr Rivera, Mary mr Vida Cortez RN RN hb Gibson, Lacie, RN RN lg3 Leni Andrade RN RN kd3 Nina Jerez RN RN vc1 Melida Moore, RN RN mb9 Corrections: (The following items were deleted from the chart) 01:21 01:20 BP 94 / 76; Pulse 18bpm; Resp 16bpm; Pulse Ox 98% RA; kd3 kd3
[2022-10-19 03:25] VITALS: TEMP 98.4
[2022-10-19 03:38] VITALS: O2SAT 99
[2022-10-19 03:39] VITALS: BP 120/79
--- NOTE | 2022-10-19 17:29 | RAD REPORT ---
EXAM DESCRIPTION: RAD - Chest Single View - 10/19/2022 12:08 am CLINICAL HISTORY: CHEST PAIN TECHNIQUE: AP chest COMPARISON: None available for comparison FINDINGS: CHEST: Decreased inspiration Heart: The cardiomediastinal silhouette is within normal limits. Lungs: No focal consolidation. Mediastinum: Unremarkable Pleura: No appreciable effusion. No pneumothorax. Bones: Intact IMPRESSION: Decreased inspiration. No active cardiopulmonary disease. Electronically signed by: Octavio Acevedo MD 10/19/2022 12:21 AM CDT Due to temporary technical issues with the PACS/Fluency reporting system, reports are being signed by the in house radiologists without review as a courtesy to insure prompt reporting. The interpreting radiologist is fully responsible for the content of the report.
--- NOTE | 2022-10-19 17:29 | EKG ---
Test Date: 2022-10-18 Test Time: 23:32:57 Monitoring Analyst: [place] MEASUREMENT RESULTS: Intervals: Rate: 80 NH: 146 QRSD: 84 QT: 366 QTc: 422 [place]: P: 35 NH: 146 QRS: 51 T: 27 INTERPRETIVE STATEMENTS: Normal sinus rhythm with sinus arrhythmia Normal ECG Compared to ECG 02/17/2015 12:52:07 No significant changes Electronically Signed On 10-19-22 17:27:23 CDT by Freeman Nguyen
--- NOTE | 2022-10-23 18:10 | EKG ---
Test Date: 2022-10-18 Test Time: 23:33:28 Binder Cutter Hand: [place] MEASUREMENT RESULTS: Intervals: Rate: 78 MA: 142 QRSD: 84 QT: 368 QTc: 419 [place]: P: 36 MA: 142 QRS: 53 T: 30 INTERPRETIVE STATEMENTS: Normal sinus rhythm with sinus arrhythmia Normal ECG Compared to ECG 10/18/2022 23:32:57 No significant changes Electronically Signed On 10-23-22 18:01:12 CDT by Freeman Nguyen
== END 2022-10-19 03:10 | disposition home or self-care (01) ==
LOC: ER 23:09
DX: R07.9 Chest pain, unspecified (principal)
CPT/HCPCS: 36415; 71045; 80048; 84484; 85025; 93005; 99285

== ENCOUNTER → 2023-02-21 | Emergency (ER) | payer SELFPAY ==
[~2023-02-21] MED LIST: AMOXICILLIN TRIHYDR 250 MG CAP ONE; KETOROLAC 30 MG/ML INJ ONE; MAGNES/ALUMIN/SIMET 30ML UCUP ONE; dexAMETHasone 10 MG/ML VIAL ONE
--- OUTSIDE RECORDS SUMMARY | 2023-02-21 11:14 | XMS REPORT | Continuity of Care Document ---
Author Name Unknown Address [address] [address] [place] [address] [facility] thconnect Address [address] [facility] [address] [place] [address] Care Team Providers Care Change Room Attendant Name Role Phone Keanu Mcdonald MD Attending Clinician Doctor Unassigned, [place] Attending Clinician Ronda Mccullough Attending Clinician Payers Payer Name Policy Type Policy Number Effective Date Expirati on Date Source Problems Condition Name Condition Details Condition Category Status Onset Date Resolution Date Last Treatment Date Treating Clinician Comments Source No known active problems No known active problems Disease [facility] Social History Social Habit Start Date Stop Date Quantity Comments Source Sex Assigned At [facility] Smoking Status Start Date Stop Date Source Unknown if ever smoked [facility] Medications Ordered Medication Name Filled Medication Name Start Date Stop Date Current Medication? Ordering Clinician Indication Dosage Frequency Signature (SIG) Comments Components Source naproxen sodium 550 mg tablet - 00:00: 00 Yes [id number] 550mg Take 1 tablet by mouth 2 (two) times daily with meals. [facility] codeine-gua ifenesin 10-100 mg/5 mL solution 2018-03 00:00: 00 Yes [id number] 10mL Take 10 mL by mouth every 6 (six) hours as needed for Cough. [facility] albuterol 90 mcg/actuati on inhaler 2018-03 00:00: 00 Yes [id number] 2{puff} Inhale 2 Puffs every 6 (six) hours as needed for Wheezing, Shortness of Breath or Chest tightness. [facility] codeine-gua ifenesin 10-100 mg/5 mL solution 2018-03 00:00: 00 Yes [id number] 10mL Take 10 mL by mouth every 6 (six) hours as needed for Cough. [facility] albuterol 90 mcg/actuati on inhaler 2018-03 00:00: 00 Yes [id number] 2{puff} Inhale 2 Puffs every 6 (six) hours as needed for Wheezing, Shortness of Breath or Chest tightness. [facility] Vital Signs Vital Name Observation Time Observation Value Comments S yong Systolic blood pressure 2019-04-25 22:48:00 132 mm[Hg] [facility] Diastolic blood pressure 2019-04-25 22:48:00 77 mm[Hg] [facility] Heart rate 2019-04-25 22:48:00 97 /min [facility] Body temperature 2019-04-25 22:48:00 37.06 Jay[facility] Respiratory rate 2019-04-25 22:48:00 16 /min [facility] Body height 2019-04-25 22:48:00 160 cm [facility] Body weight 2019-04-25 22:48:00 72.576 kg [facility] BMI 2019-04-25 22:48:00 28.34 kg/m2 [facility] Oxygen saturation in Arterial blood by Pulse oximetry 2019-04-25 22:48:00 99 /min [facility] Systolic blood pressure 2019-04-25 22:48:00 132 mm[Hg] [facility] Diastolic blood pressure 2019-04-25 22:48:00 77 mm[Hg] [facility] Heart rate 2019-04-25 22:48:00 97 /min [facility] Body temperature 2019-04-25 22:48:00 37.06 Jayla [facility] Respiratory rate 2019-04-25 22:48:00 16 /min [facility] Body height 2019-04-25 22:48:00 160 cm [facility] Body weight 2019-04-25 22:48:00 72.576 kg [facility] BMI 2019-04-25 22:48:00 28.34 kg/m2 [facility] Oxygen saturation in Arterial blood by Pulse oximetry 2019-04-25 22:48:00 99 /min [facility] Body weight 2018-10-08 04:15:00 68.04 kg [facility] BMI 2018-10-08 04:15:00 26.57 kg/m2 [facility] Oxygen saturation in Arterial blood by Pulse oximetry 2018-10-08 04:15:00 100 /min [facility] Systolic blood pressure 2018-10-08 04:15:00 123 mm[Hg] [facility] Diastolic blood pressure 2018-10-08 04:15:00 80 mm[Hg] [facility] Heart rate 2018-10-08 04:15:00 99 /min [facility] Body temperature 2018-10-08 04:15:00 37 Jayla [facility] Respiratory rate 2018-10-08 04:15:00 20 /min [facility] Body height 2018-10-08 04:15:00 160 cm [facility] Body weight 2018-10-08 04:15:00 68.04 kg [facility] BMI 2018-10-08 04:15:00 26.57 kg/m2 [facility] Oxygen saturation in Arterial blood by Pulse oximetry 2018-10-08 04:15:00 100 /min [facility] Systolic blood pressure 2018-10-08 04:15:00 123 mm[Hg] [facility] Diastolic blood pressure 2018-10-08 04:15:00 80 mm[Hg] [facility] Heart rate 2018-10-08 04:15:00 99 /min [facility] Body temperature 2018-10-08 04:15:00 37 Jayla [facility] Respiratory rate 2018-10-08 04:15:00 20 /min [facility] Body height 2018-10-08 04:15:00 160 cm [facility] Procedures Procedure Date / Time Performed Performing Clinicia n Source NOTICE OF PRIVACY PRACTICES 2019-04-25 22:39:03 Doctor Unassigned, [place] [facility] CONSENT/REFUSAL FOR DIAGNOSIS AND TREATMENT 2019-04-25 22:38:46 Doctor Unassigned, [place] [facility] CONSENT/REFUSAL FOR DIAGNOSIS AND TREATMENT 2018-10-08 04:12:41 Doctor Unassigned, [place] [facility] Encounters Start Date/Time End Date/Time Encounter Type Admission Type Attending [facility] Care Facility Care Department Encounter ID Source 2019-04-25 16:50:24 2019-04-25 17:51:00 Emergency [facility] [id number] 2019-04-25 16:50:24 2019-04-25 17:51:00 Emergency [facility] [id number] [facility] 2019-04-25 00:00:00 2019-04-25 00:00:00 Orders Only Doctor Unassigned, [place] [facility] [id number] [facility] 2019-04-25 00:00:00 2019-04-25 00:00:00 Orders Only Doctor Unassigned, [place] [facility] [id number] 2018-10-07 23:18:07 2018-10-07 23:56:00 Emergency Ronda Sargent [facility] [id number] [facility] 2018-10-07 23:18:07 2018-10-07 23:56:00 Emergency [place], Ronda Chantal [facility] [id number]
--- NOTE | 2023-02-21 12:24 | ER ---
Nurse's Notes [facility] Name: Florencia No Age: 22 yrs Sex: Female : 2000 Arrival Date: 02/21/2023 Time: 11:12 Bed 14 Private MD: Diagnosis: Streptococcal pharyngitis Presentation: 02/21 11:22 Chief complaint: Patient states: SORE THROAT AND TINGLING YESTERDAY. Coronavirus bp screen: At this time, the client does not indicate any symptoms associated with coronavirus-19. Ebola Screen: No symptoms or risks identified at this time. Initial Sepsis Screen: Does the patient meet any 2 criteria? HR > 90 bpm. No. Patient's initial sepsis screen is negative. Does the patient have a suspected source of infection? No. Patient's initial sepsis screen is negative. Risk Assessment: Do you want to hurt yourself or someone else? Patient reports no desire to harm self or others. Onset of symptoms was February 20, 2023 at 16:00. 11:22 Method Of Arrival: Ambulatory bp 11:22 Acuity: BRUCE 4 bp Triage Assessment: 11:24 General: Appears uncomfortable, Behavior is cooperative, appropriate for age, anxious. bp Pain: Complains of pain in neck. Historical: - Allergies: 11:24 No Known Allergies; bp - Home Meds: 11:24 None [Active]; bp - PMHx: 11:24 None; bp - Immunization history:: Adult Immunizations up to date. - Social history:: Smoking status: Patient denies any tobacco usage or history of. Screenin:30 [facility] ED Fall Risk Assessment (Adult) History of falling in the last 3 months, rs5 including since admission No falls in past 3 months (0 pts) Confusion or Disorientation No (0 pts) Intoxicated or Sedated No (0 pts) Impaired Gait No (0 pts) Mobility Assist Device Used No (0 pt) Altered Elimination No (0 pt) Score/Fall Risk Level 0 - 2 = Low Risk Oriented to surroundings, Maintained a safe environment. Abuse screen: Denies threats or abuse. Nutritional screening: No deficits noted. Tuberculosis screening: No symptoms or risk factors identified. Assessment: 11:25 General: Appears distressed, uncomfortable, Behavior is cooperative, crying. Pain: rs5 Complains of pain in back of throat Pain does not radiate. Pain currently is 7 out of 10 on a pain scale. Quality of pain is described as burning, aching, Pain began 1 day ago. Is continuous. Neuro: Level of Consciousness is awake, alert, obeys commands, Oriented to person, place, time, situation. Cardiovascular: Heart tones S1 S2 present Rhythm is regular. Respiratory: Airway is patent Respiratory effort is even, unlabored, Respiratory pattern is regular, symmetrical, Breath sounds are clear bilaterally. GI: Abdomen is round non-distended, Bowel sounds present X 4 quads. Abd is soft and non tender X 4 quads. : No signs and/or symptoms were reported regarding the genitourinary system. EENT:. EENT: Throat redness noted to back of throat. Derm: Skin is intact, Skin is pink, warm \T\ dry. Musculoskeletal: Range of motion: intact in all extremities. Vital Signs: 11:22 BP 148 / 96; Pulse 113; Resp 18; Temp 98.6; Pulse Ox 96% ; Weight 95.25 kg; Height 5 bp ft. 3 in. ; 12:04 BP 128 / 68; Pulse 90; Resp 17; Pulse Ox 99% on R/A; rs5 11:22 Body Mass Index 37.20 (95.25 kg, 160.02 cm) bp ED Course: 11:13 Patient arrived in ED. rg4 11:20 Valente Montoya MD is Attending Physician. ec2 11:24 Triage completed. bp 11:24 Arm band placed on. bp 11:24 Patient has correct armband on for positive identification. Bed in low position. Call rs5 light in reach. Side rails up X2. 11:31 Dann Urena, RN is Primary Nurse. rs5 12:40 No provider procedures requiring assistance completed. rs5 12:40 Patient did not have IV access during this emergency room visit. rs5 Administered Medications: 11:40 Drug: Dexamethasone IM 10 mg IM once; GIVE PO {Note: Adm PO per MD orders.} Route: IM; rs5 Site: Other; 11:40 Drug: Alum-Mag Hydroxide-Simeth PO Suspension (200 mg-200 mg-20 mg/5 mL) 30 ml PO once rs5 Route: PO; 11:40 Drug: Ketorolac IM 30 mg IM once Route: IM; Site: left deltoid; rs5 Medication: 12:06 VIS not applicable for this client. rs5 Outcome: 12:23 Discharge ordered by . ec2 12:40 Discharged to home ambulatory, rs5 12:40 Condition: stable 12:40 Discharge instructions given to patient, Instructed on discharge instructions, follow up and referral plans. Demonstrated understanding of instructions, follow-up care, 12:41 Patient left the ED. rs5 Signatures: Dayana Byers rg4 Edi Mcpherson RN RN Dann Urena RN RN rs5 Valente Montoya MD MD ec2
--- NOTE | 2023-02-21 12:24 | EDPHYS ---
Physician Documentation [facility] Name: Florencia No Age: 22 yrs Sex: Female : 2000 Arrival Date: 02/21/2023 Time: 11:12 Bed 14 Private MD: ED Physician Valente Montoya HPI: 02/21 11:28 This 22 yrs old Female presents to ER via Ambulatory with complaints of Neck ec2 Problem. 11:28 Patient arrives today due to concern for sore throat. Patient reports that she is ec2 having pain with swallowing, pain in the neck. Patient reports that she has no fevers or chills, no nausea or vomiting. Reports no cough and cold symptoms.. Historical: - Allergies: 11:24 No Known Allergies; bp - Home Meds: 11:24 None [Active]; bp - PMHx: 11:24 None; bp - Immunization history:: Adult Immunizations up to date. - Social history:: Smoking status: Patient denies any tobacco usage or history of. ROS: 11:28 Constitutional: as per hpi ec2 Exam: 11:28 Constitutional: GEN: NAD Head: atraumatic Eyes: EOMI Ears: External ears are normal. ec2 Mouth: Posterior oropharynx with erythema, no exudate appreciated. Anterior cervical lymphadenopathy noted. CV: Tachycardia LUNGS: no respiratory distress ABD: non-distended SKIN: no evidence of rashes MSK: no evidence of trauma NEURO: moves all extremities equally Vital Signs: 11:22 BP 148 / 96; Pulse 113; Resp 18; Temp 98.6; Pulse Ox 96% ; Weight 95.25 kg; Height 5 bp ft. 3 in. ; 12:04 BP 128 / 68; Pulse 90; Resp 17; Pulse Ox 99% on R/A; rs5 11:22 Body Mass Index 37.20 (95.25 kg, 160.02 cm) bp MDM: 11:25 Patient medically screened. ec2 11:28 Data reviewed: vital signs. ED course: Patient arrives today for evaluation of sore ec2 throat. Examination remarkable for oropharynx examination as noted above. Will obtain viral swab, strep swab, treat the patient symptoms with steroids, Toradol and Maalox. Currently considering viral infection versus strep pharyngitis, low suspicion for deep space infection given the patient's overall well appearance and lack of trismus or difficulty with secretions. Accordingly will defer any lab work or CT imaging.. 12:23 ED course: Patient is strep positive. Will treat with antibiotics and have her ec2 follow-up with her primary care doctor.. 02/21 11:27 Order name: COVID-19 SARS RT PCR ec2 02/21 11:27 Order name: Influenza Screen (a \T\ B); Complete Time: 12:25 ec2 02/21 11: Order name: Strep; Complete Time: 12:23 ec2 Administered Medications: 11:40 Drug: Dexamethasone IM 10 mg IM once; GIVE PO {Note: Adm PO per orders.} Route: IM; rs5 Site: Other; 11:40 Drug: Alum-Mag Hydroxide-Simeth PO Suspension (200 mg-200 mg-20 mg/5 mL) 30 ml PO once rs5 Route: PO; 11:40 Drug: Ketorolac IM 30 mg IM once Route: IM; Site: left deltoid; rs5 Disposition Summary: 02/21/23 12:23 Discharge Ordered Notes: Location: Home ec2 Problem: new ec2 Symptoms: have improved ec2 Condition: Stable ec2 Diagnosis - Streptococcal pharyngitis ec2 Followup: ec2 - With: Private Physician - When: - Reason: Recheck today's complaints Discharge Instructions: - Discharge Summary Sheet ec2 - Strep Throat, Adult ec2 Forms: - Work release form rs5 - Medication Reconciliation Form ec2 - Thank You Letter ec2 - Antibiotic Education ec2 - Prescription Opioid Use ec2 - Patient Portal Instructions ec2 - Leadership Thank You Letter ec2 Prescriptions: - Amoxicillin 500 mg Oral capsule - take 1 capsule ORAL route every 12 hours for 10 days; 20 tablet; Refills: 0, ec2 Product Selection Permitted Signatures: Dispatcher [employer] Edi Johnson RN RN bp Dann Urena RN RN rs5 Valente Montoya MD MD ec2
[2023-02-21 13:13] VITALS: BP 128/68; TEMP 98.6; O2SAT 99
== END ==
LOC: ER 11:12
DX: J02.0 Streptococcal pharyngitis (principal); Z11.52 Encounter for screening for COVID-19
CPT/HCPCS: 87081; 87635; 87804; 96372; 99284; J1100

== ENCOUNTER → 2023-05-01 | Emergency (ER) | payer SELFPAY ==
[~2023-05-01] MED LIST changes: -AMOXICILLIN TRIHYDR 250 MG CAP ONE; +DIAZEPAM 2 MG TABLET ONE; -KETOROLAC 30 MG/ML INJ ONE; -MAGNES/ALUMIN/SIMET 30ML UCUP ONE; -dexAMETHasone 10 MG/ML VIAL ONE
--- OUTSIDE RECORDS SUMMARY | 2023-05-01 11:47 | XMS REPORT | Continuity of Care Document ---
Author Name Unknown Address [address] [place] [address] [facility] thconnect Address [address] [facility] [place] [address] Care Team Providers Care Correctional Casework Specialist Name Role Phone Keanu Mcdonald MD Attending Clinician Doctor Unassigned, [place] Attending Clinician Ronda Mccullough Attending Clinician Payers Payer Name Policy Type Policy Number Effective Date Expirati on Date Source Problems Condition Name Condition Details Condition Category Status Onset Date Resolution Date Last Treatment Date Treating Clinician Comments Source No known active problems No known active problems Disease [facility] Social History Social Habit Start Date Stop Date Quantity Comments Source Sex Assigned At [facility] Smoking Status Start Date Stop Date Source Unknown if ever smoked [facility] Medications Ordered Medication Name Filled Medication Name Start Date Stop Date Current Medication? Ordering Clinician Indication Dosage Frequency Signature (SIG) Comments Components Source naproxen sodium 550 mg tablet - 00:00: 00 Yes [id number] 550mg Take 1 tablet by mouth 2 (two) times daily with meals. [facility] codeine-gua ifenesin 10-100 mg/5 mL solution 2018-03 00:00: 00 Yes [id number] 10mL Take 10 mL by mouth every 6 (six) hours as needed for Cough. [facility] albuterol 90 mcg/actuati on inhaler 2018-03 00:00: 00 Yes [id number] 2{puff} Inhale 2 Puffs every 6 (six) hours as needed for Wheezing, Shortness of Breath or Chest tightness. [facility] codeine-gua ifenesin 10-100 mg/5 mL solution 2018-03 00:00: 00 Yes [id number] 10mL Take 10 mL by mouth every 6 (six) hours as needed for Cough. [facility] albuterol 90 mcg/actuati on inhaler 2018-03 00:00: 00 Yes [id number] 2{puff} Inhale 2 Puffs every 6 (six) hours as needed for Wheezing, Shortness of Breath or Chest tightness. [facility] Vital Signs Vital Name Observation Time Observation Value Comments S yong Systolic blood pressure 2019-04-25 22:48:00 132 mm[Hg] [facility] Diastolic blood pressure 2019-04-25 22:48:00 77 mm[Hg] [facility] Heart rate 2019-04-25 22:48:00 97 /min [facility] Body temperature 2019-04-25 22:48:00 37.06 Jyala [facility] Respiratory rate 2019-04-25 22:48:00 16 /min [facility] Body height 2019-04-25 22:48:00 160 cm [facility] Body weight 2019-04-25 22:48:00 72.576 kg [facility] BMI 2019-04-25 22:48:00 28.34 kg/m2 [facility] Oxygen saturation in Arterial blood by Pulse oximetry 2019-04-25 22:48:00 99 /min [facility] Systolic blood pressure 2019-04-25 22:48:00 132 mm[Hg] [facility] Diastolic blood pressure 2019-04-25 22:48:00 77 mm[Hg] [facility] Heart rate 2019-04-25 22:48:00 97 /min [facility] Body temperature 2019-04-25 22:48:00 37.06 Jayla [facility] Respiratory rate 2019-04-25 22:48:00 16 /min [facility] Body height 2019-04-25 22:48:00 160 cm [facility] Body weight 2019-04-25 22:48:00 72.576 kg [facility] BMI 2019-04-25 22:48:00 28.34 kg/m2 [facility] Oxygen saturation in Arterial blood by Pulse oximetry 2019-04-25 22:48:00 99 /min [facility] Body weight 2018-10-08 04:15:00 68.04 kg [facility] BMI 2018-10-08 04:15:00 26.57 kg/m2 [facility] Oxygen saturation in Arterial blood by Pulse oximetry 2018-10-08 04:15:00 100 /min [facility] Systolic blood pressure 2018-10-08 04:15:00 123 mm[Hg] [facility] Diastolic blood pressure 2018-10-08 04:15:00 80 mm[Hg] [facility] Heart rate 2018-10-08 04:15:00 99 /min Un[facility] Body temperature 2018-10-08 04:15:00 37 Jayla [facility] Respiratory rate 2018-10-08 04:15:00 20 /min [facility] Body height 2018-10-08 04:15:00 160 cm [facility] Body weight 2018-10-08 04:15:00 68.04 kg [facility] BMI 2018-10-08 04:15:00 26.57 kg/m2 [facility] Oxygen saturation in Arterial blood by Pulse oximetry 2018-10-08 04:15:00 100 /min [facility] Systolic blood pressure 2018-10-08 04:15:00 123 mm[Hg] [facility] Diastolic blood pressure 2018-10-08 04:15:00 80 mm[Hg] [facility] Heart rate 2018-10-08 04:15:00 99 /min [facility] Body temperature 2018-10-08 04:15:00 37 Jayla [facility] Respiratory rate 2018-10-08 04:15:00 20 /min [facility] Body height 2018-10-08 04:15:00 160 cm [facility] Procedures Procedure Date / Time Performed Performing Clinicia n Source NOTICE OF PRIVACY PRACTICES 2019-04-25 22:39:03 Doctor Unassigned, [place] [facility] CONSENT/REFUSAL FOR DIAGNOSIS AND TREATMENT 2019-04-25 22:38:46 Doctor Unassigned, [place] [facility] CONSENT/REFUSAL FOR DIAGNOSIS AND TREATMENT 2018-10-08 04:12:41 Doctor Unassigned, [place] [facility] Encounters Start Date/Time End Date/Time Encounter Type Admission Type Attending [facility] Care Department Encounter ID Source 2019-04-25 16:50:24 2019-04-25 17:51:00 Emergency [facility] [id number] 2019-04-25 16:50:24 2019-04-25 17:51:00 Emergency [facility] [id number] [facility] 2019-04-25 00:00:00 2019-04-25 00:00:00 Orders Only Doctor Unassigned, [place] [facility] [id number] [facility] 2019-04-25 00:00:00 2019-04-25 00:00:00 Orders Only Doctor Unassigned, [place] [facility] [id number] 2018-10-07 23:18:07 2018-10-07 23:56:00 Emergency Ronda Sargent [facility] [id number] [facility] 2018-10-07 23:18:07 2018-10-07 23:56:00 Emergency [place], Ronda Chantal [facility] [id number]
[2023-05-01 12:36] LABS: Specific Gravity 1.014 (1.005-1.030)
--- NOTE | 2023-05-01 12:56 | RAD REPORT ---
EXAM DESCRIPTION: RAD - Chest Pa And Lat (2 Views) - 05/01/2023 12:51 pm CLINICAL HISTORY: Chest pain;Dyspnea COMPARISON: Chest Single View dated 10/19/2022; Chest Pa And Lat (2 Views) dated 12/29/2018; CHEST PA AND LAT 2 VIEW dated 02/17/2015 FINDINGS: Lines: None. Lungs: No evidence of edema or pneumonia. Pleural: No significant pleural effusions or pneumothorax. Cardiac: The heart size is within normal limits. Mediastinum: Within normal limits. Bones: No acute fractures. Other: None IMPRESSION: No acute cardiopulmonary disease.
--- NOTE | 2023-05-01 13:17 | ER ---
Nurse's Notes [facility] Name: Florencia No Age: 22 yrs Sex: Female : 2000 Arrival Date: 05/01/2023 Time: 11:44 Bed 11 Private MD: Diagnosis: Chest pain, unspecified;Anxiety disorder, unspecified Presentation: 05/01 11:52 Chief complaint: Patient states: "I woke up this morning with chest pain and it's hard as6 for me to take a deep breath" pt reports this could be anxiety. Coronavirus screen: At this time, the client does not indicate any symptoms associated with coronavirus-19. Ebola Screen: No symptoms or risks identified at this time. Initial Sepsis Screen: Does the patient meet any 2 criteria? No. Patient's initial sepsis screen is negative. Does the patient have a suspected source of infection? No. Patient's initial sepsis screen is negative. Risk Assessment: Do you want to hurt yourself or someone else? Patient reports no desire to harm self or others. Onset of symptoms was May 01, 2023. 11:52 Acuity: BRUCE 3 as6 11:52 Method Of Arrival: Ambulatory as6 Triage Assessment: 11:53 General: Appears in no apparent distress. Behavior is cooperative, anxious, crying. as6 Pain: Complains of pain in chest. Cardiovascular: Reports chest pain, shortness of breath. Respiratory: Reports shortness of breath. 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 - Social history:: Smoking status: Patient denies any tobacco usage or history of. - Family history:: not pertinent. - Hospitalizations: : No recent hospitalization is reported. Screenin:07 [facility] ED Fall Risk Assessment (Adult) History of falling in the last 3 months, cm10 including since admission No falls in past 3 months (0 pts) Confusion or Disorientation No (0 pts) Intoxicated or Sedated No (0 pts) Impaired Gait No (0 pts) Mobility Assist Device Used No (0 pt) Altered Elimination No (0 pt) Score/Fall Risk Level 0 - 2 = Low Risk Oriented to surroundings, Maintained a safe environment, Hourly rounding (assess needs \\T\\ fall precautionary measures) done. Abuse screen: Denies threats or abuse. Denies injuries from another. Nutritional screening: No deficits noted. Tuberculosis screening: No symptoms or risk factors identified. Assessment: 13:06 General: Appears in no apparent distress. comfortable, Behavior is calm, cooperative. cm10 Pain: Complains of pain in chest. Neuro: No deficits noted. Level of Consciousness is awake, alert, obeys commands, Oriented to person, place, time, situation. Cardiovascular: No deficits noted. Reports chest pain, Capillary refill < 3 seconds Patient's skin is warm and dry. Respiratory: No deficits noted. Airway is patent Respiratory effort is even, unlabored, Respiratory pattern is regular, symmetrical. GI: No deficits noted. No signs and/or symptoms were reported involving the gastrointestinal system. :. EENT: No deficits noted. No signs and/or symptoms were reported regarding the EENT system. Derm: No deficits noted. No signs and/or symptoms reported regarding the dermatologic system. Skin is intact, Skin is pink, warm \\T\\ dry. Musculoskeletal: No deficits noted. No signs and/or symptoms reported regarding the musculoskeletal system. Range of motion: intact in all extremities. 13:33 Reassessment: Patient appears in no apparent distress at this time. Patient is alert, cm10 oriented x 3, equal unlabored respirations, skin warm/dry/pink. Patient states feeling better. Patient states symptoms have improved. Vital Signs: 11:50 BP 139 / 91; Pulse 106; Resp 16 S; Temp 97(TE); Pulse Ox 100% on R/A; Weight 99.79 kg as6 (R); Height 5 ft. 4 in. (R); Pain 5/10; 13:32 Pulse 87; Resp 16; Pulse Ox 99% on R/A; cm10 11:50 Body Mass Index 37.76 (99.79 kg, 162.56 cm) as6 11:50 Pain Scale: Adult as6 ED Course: 11:47 Patient arrived in ED. mg5 11:49 Boone Choi MD is Attending Physician. rn 11:52 Arm band placed on. as6 11:53 Triage completed. as6 12:19 Sasha Donnelly, SHOSHANA is Primary Nurse. cm10 12:52 XRAY Chest Pa And Lat (2 Views) In Process Unspecified. EDMS 13:07 Patient has correct armband on for positive identification. Provided Education on: ER cm10 process and procedures. . 13:07 Bed in low position. Call light in reach. cm10 13:07 No provider procedures requiring assistance completed. cm10 13:07 Patient did not have IV access during this emergency room visit. cm10 Administered Medications: 12:53 Drug: Diazepam PO 2 mg PO once Route: PO; cm10 13:31 Follow up: Response: No adverse reaction cm10 Medication: 13:07 VIS not applicable for this client. cm10 Outcome: 13:17 Discharge ordered by . rn 13:33 Discharged to home ambulatory, with family, cm10 13:33 Condition: good 13:33 Discharge instructions given to patient, Instructed on discharge instructions, follow up and referral plans. Demonstrated understanding of instructions, follow-up care, 13:33 Patient left the ED. cm10 Signatures: Dispatcher [employer] EDMS Boone Choi MD MD rn Slawson, Ashby, RN RN as6 Sasha Donnelly RN RN [email or web address] Britt Ramesh mg5
--- NOTE | 2023-05-01 13:17 | EDPHYS ---
Physician Documentation [facility] Name: Florencia No Age: 22 yrs Sex: Female : 2000 Arrival Date: 05/01/2023 Time: 11:44 Bed 11 Private MD: ED Physician Boone Choi HPI: 05/01 13:12 This 22 yrs old Female presents to ER via Ambulatory with complaints of Chest rn Pain, Breathing Difficulty. 13:12 The patient or guardian reports chest pain that is located primarily in the substernal rn area. The pain does not radiate. Associated signs and symptoms: Pertinent positives: shortness of breath, Pertinent negatives: abdominal pain, cough, diaphoresis, dizziness, headache, lower extremity swelling, lightheadedness, near syncope, palpitations, recent travel. The chest pain is described as a heaviness. Duration: The patient or guardian reports multiple episodes, that are intermittent. Modifying factors: The symptoms are alleviated by nothing. the symptoms are aggravated by emotionally stressful situations. Severity of pain: At its worst the pain was moderate in the emergency department the pain has improved. The patient has experienced similar episodes in the past. Patient reports substernal chest pain, nonradiating, worse with emotional stress and anxiety. Denies any fever or cough. No history of cardiac or pulmonary problems. No family history of early cardiac problems. No trauma. No hemoptysis. No history of DVT or PE. Patient reports has had this feeling before in the setting of anxiety and panic attacks.. 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 - Social history:: Smoking status: Patient denies any tobacco usage or history of. - Family history:: not pertinent. - Hospitalizations: : No recent hospitalization is reported. ROS: 13:12 Constitutional: Negative for fever, chills, and weight loss, Cardiovascular: Positive rn for chest pain, negative for palpitations or edema Respiratory: Positive for shortness of breath, negative for cough or wheezing Abdomen/GI: Negative for abdominal pain, nausea, vomiting, diarrhea, and constipation, MS/Extremity: Negative for injury and deformity, Skin: Negative for injury, rash, and discoloration, Neuro: Negative for headache, weakness, numbness, tingling, and seizure, Exam: 13:12 Constitutional: This is a well developed, well nourished patient who is awake, alert, rn tearful in triage Head/Face: Normocephalic, atraumatic. Cardiovascular: Regular rate and rhythm once crying stopped. No pulse deficits. Respiratory: Clear bilateral breath sounds. No increased work of breathing, no retractions or nasal flaring. Neuro: Awake and alert, GCS 15 Vital Signs: 11:50 BP 139 / 91; Pulse 106; Resp 16 S; Temp 97(TE); Pulse Ox 100% on R/A; Weight 99.79 kg as6 (R); Height 5 ft. 4 in. (R); Pain 5/10; 13:32 Pulse 87; Resp 16; Pulse Ox 99% on R/A; cm10 11:50 Body Mass Index 37.76 (99.79 kg, 162.56 cm) as6 11:50 Pain Scale: Adult as6 MDM: 11:49 Patient medically screened. rn 13:12 Differential diagnosis: acute pericarditis, anxiety, coronary artery disease pleurisy, rn pneumonia, pneumothorax. HEART Score: History: Slightly Suspicious (0), ECG: Normal (0), Age: < or = 45 years (0), Risk Factors: No Risk Factors Known (0), Troponin: < or = 1 x Normal Limit (0), Total Score = 0. Data reviewed: vital signs, nurses notes, lab test result(s), EKG, radiologic studies, plain films, and as a result, I will discharge patient. Counseling: I had a detailed discussion with the patient and/or guardian regarding the historical points, exam findings, and any diagnostic results supporting the discharge/admit diagnosis, lab results, radiology results, the need for outpatient follow up, to return to the emergency department if symptoms worsen or persist or if there are any questions or concerns that arise at home. Special discussion: I discussed with the patient/guardian in detail that at this point there is no indication for admission to the hospital. It is understood, however, that if the symptoms persist or worsen the patient needs to return immediately for re-evaluation. 05/01 11:54 Order name: Test, Urine; Complete Time: 13:03 rn 05/01 11:54 Order name: XRAY Chest Pa And Lat (2 Views); Complete Time: 13:03 rn 05/01 11:54 Order name: EKG; Complete Time: 11:54 rn 05/01 11:54 Order name: EKG - Nurse/Tech; Complete Time: 12:00 rn Administered Medications: 12:53 Drug: Diazepam PO 2 mg PO once Route: PO; cm10 13:31 Follow up: Response: No adverse reaction cm10 Disposition Summary: 05/01/23 13:17 Discharge Ordered Notes: Location: Home rn Problem: new rn Symptoms: have improved rn Condition: Stable rn Diagnosis - Chest pain, unspecified rn - Anxiety disorder, unspecified rn Followup: rn - With: Private Physician - When: As needed - Reason: Recheck today's complaints, Re-evaluation by your physician Discharge Instructions: - Discharge Summary Sheet rn - Nonspecific Chest Pain, Adult rn - Generalized Anxiety Disorder, Adult rn Forms: - Medication Reconciliation Form rn - Thank You Letter rn - Antibiotic internal sales - Prescription Opioid Use rn - Patient Portal Instructions rn - Leadership Thank You Letter rn - Work release form cm10 Signatures: Dispatcher [employer] EDMS Boone Choi MD MD rn Slawson, Ashby, RN RN as6 Sasha Donnelly RN RN cm10 Corrections: (The following items were deleted from the chart) 13:15 13:12 Patient reports substernal chest pain, nonradiating, worse with emotional stress rn and anxiety. Denies any fever or cough. No history of cardiac or pulmonary problems. No family history of early cardiac problems. No trauma. No hemoptysis. No history of DVT or PE.. rn
[2023-05-01 13:48] VITALS: BP 139/91; TEMP 97
[2023-05-01 14:12] VITALS: O2SAT 99
--- NOTE | 2023-05-01 15:45 | EKG ---
Test Date: 2023-05-01 Test Time: 11:47:55 Bromination Equipment Operator: MEASUREMENT RESULTS: Intervals: Rate: 98 TN: 136 QRSD: 78 QT: 354 QTc: 451 [place]: P: 57 TN: 136 QRS: 80 T: 35 INTERPRETIVE STATEMENTS: Normal sinus rhythm with sinus arrhythmia Nonspecific ST abnormality Abnormal ECG Compared to ECG 10/18/2022 23:33:28 ST (T wave) deviation now present Electronically Signed On 05-01-23 15:44:56 STEAM OVEN OPERATOR by Freeman Nguyen
== END ==
LOC: ER 11:44
DX: F41.9 Anxiety disorder, unspecified (principal)
CPT/HCPCS: 71046; 81025; 93005

== ENCOUNTER 2023-12-16 19:19 | Emergency (ER) | payer SELFPAY ==
--- OUTSIDE RECORDS SUMMARY | 2023-12-16 19:22 | XMS REPORT | Continuity of Care Document ---
Author Name Unknown Address [address] [place] [address] [facility] thconnect Address [address] [place] [address] Care Team Providers Care Tagman Name Role Phone Keanu Mcdonald MD Attending Clinician [phone] Doctor Unassigned, Rochelle Attending Clinician Ronda Mccullough Attending Clinician Payers Payer Name Policy Type Policy Number Effective Date Expirati on Date Source Problems Condition Name Condition Details Condition Category Status Onset Date Resolution Date Last Treatment Date Treating Clinician Comments Source No known active problems No known active problems Disease [facility] Social History Social Habit Start Date Stop Date Quantity Comments Source Sex Assigned At [facility] Smoking Status Start Date Stop Date Source Unknown if ever smoked [facility] Medications Ordered Medication Name Filled Medication Name Start Date Stop Date Current Medication? Ordering Clinician Indication Dosage Frequency Signature (SIG) Comments Components Source naproxen sodium 550 mg tablet -21 00:00: 00 Yes [id number] 550mg Take 1 tablet by mouth 2 (two) times daily with meals. [facility] codeine-gua ifenesin 10-100 mg/5 mL solution 2018-03 00:00: 00 Yes [id number] 10mL Take 10 mL by mouth every 6 (six) hours as needed for Cough. [facility] albuterol 90 mcg/actuati on inhaler 2018-03 00:00: 00 Yes [id number] 2{puff} Inhale 2 Puffs every 6 (six) hours as needed for Wheezing, Shortness of Breath or Chest tightness. [facility] Vital Signs Vital Name Observation Time Observation Value Comments S yong Systolic blood pressure 2019-04-25 22:48:00 132 mm[Hg] [facility] Diastolic blood pressure 2019-04-25 22:48:00 77 mm[Hg] [facility] Heart rate 2019-04-25 22:48:00 97 /min [facility] Body temperature 2019-04-25 22:48:00 37.06 [facility] Respiratory rate 2019-04-25 22:48:00 16 /min [facility] Body height 2019-04-25 22:48:00 160 cm [facility] Body weight 2019-04-25 22:48:00 72.576 kg [facility] BMI 2019-04-25 22:48:00 28.34 kg/m2 [facility] Oxygen saturation in Arterial blood by Pulse oximetry 2019-04-25 22:48:00 99 /min [facility] Systolic blood pressure 2019-04-25 22:48:00 132 mm[Hg] [facility] Diastolic blood pressure 2019-04-25 22:48:00 77 mm[Hg] [facility] Heart rate 2019-04-25 22:48:00 97 /min [facility] Body temperature 2019-04-25 22:48:00 37.06 [facility] Respiratory rate 2019-04-25 22:48:00 16 /min [facility] Body height 2019-04-25 22:48:00 160 cm [facility] Body weight 2019-04-25 22:48:00 72.576 kg [facility] BMI 2019-04-25 22:48:00 28.34 kg/m2 [facility] Oxygen saturation in Arterial blood by Pulse oximetry 2019-04-25 22:48:00 99 /min [facility] Body weight 2018-10-08 04:15:00 68.04 kg [facility] BMI 2018-10-08 04:15:00 26.57 kg/m2 [facility] Oxygen saturation in Arterial blood by Pulse oximetry 2018-10-08 04:15:00 100 /min [facility] Systolic blood pressure 2018-10-08 04:15:00 123 mm[Hg] [facility] Diastolic blood pressure 2018-10-08 04:15:00 80 mm[Hg] [facility] Heart rate 2018-10-08 04:15:00 99 /min [facility] Body temperature 2018-10-08 04:15:00 37 Jayla [facility] Respiratory rate 2018-10-08 04:15:00 20 /min [facility] Body height 2018-10-08 04:15:00 160 cm [facility] Body weight 2018-10-08 04:15:00 68.04 kg [facility] BMI 2018-10-08 04:15:00 26.57 kg/m2 [facility] Oxygen saturation in Arterial blood by Pulse oximetry 2018-10-08 04:15:00 100 /min [facility] Systolic blood pressure 2018-10-08 04:15:00 123 mm[Hg] [facility] Diastolic blood pressure 2018-10-08 04:15:00 80 mm[Hg] [facility] Heart rate 2018-10-08 04:15:00 99 /min [facility] Body temperature 2018-10-08 04:15:00 37 Jayla [facility] Respiratory rate 2018-10-08 04:15:00 20 /min [facility] Body height 2018-10-08 04:15:00 160 cm [facility] Procedures Procedure Date / Time Performed Performing Clinicia n Source NOTICE OF PRIVACY PRACTICES 2019-04-25 22:39:03 Doctor Unassigned, Rochelle [facility] CONSENT/REFUSAL FOR DIAGNOSIS AND TREATMENT 2019-04-25 22:38:46 Doctor Unassigned, Rochelle [facility] CONSENT/REFUSAL FOR DIAGNOSIS AND TREATMENT 2018-10-08 04:12:41 Doctor Unassigned, Rochelle [facility] Encounters Start Date/Time End Date/Time Encounter Type Admission Type Attending Clinicians Care Facility Care Department Encounter ID Source 2019-04-25 16:50:24 2019-04-25 17:51:00 Emergency Keanu Mcdonald [facility] [id number] 2019-04-25 16:50:24 2019-04-25 17:51:00 Emergency Keanu Mcdonald [facility] [id number] [facility] 2019-04-25 00:00:00 2019-04-25 00:00:00 Orders Only Doctor Unassigned, Rochelle [facility] [id number] [facility] 2019-04-25 00:00:00 2019-04-25 00:00:00 Orders Only Doctor Unassigned, Rochelle [facility] [id number] 2018-10-07 23:18:07 2018-10-07 23:56:00 [facility] [id number] [facility] 2018-10-07 23:18:07 2018-10-07 23:56:00 Emergency [facility] [id number]
--- NOTE | 2023-12-16 19:49 | ER ---
Nurse's Notes [facility] [place] [place] Name: Florencia No Age: 23 yrs Sex: Female : 2000 Arrival Date: 12/16/2023 Time: 19:19 Bed IW1 Private MD: Diagnosis: Encounter for general adult medical examination without abnormal findings Presentation: 12/15 19:43 Chief complaint: Patient states: Had to miss work this weekend due to having a stomach cm10 virus and needs a note to return to work. Pt has no complaints at this time. Coronavirus screen: Client denies travel out of the [place] in the last 14 days. Ebola Screen: Patient denies travel to an Ebola-affected area in the 21 days before illness onset. Initial Sepsis Screen: Does the patient meet any 2 criteria? No. Patient's initial sepsis screen is negative. Does the patient have a suspected source of infection? No. Patient's initial sepsis screen is negative. Risk Assessment: Do you want to hurt yourself or someone else? Patient reports no desire to harm self or others. Onset of symptoms was December 16, 2023. 19:43 Method Of Arrival: Ambulatory cm10 19:43 Acuity: BRUCE 5 cm10 Triage Assessment: 19:44 General: Appears in no apparent distress. comfortable, Behavior is calm, cooperative. cm10 Pain: Denies pain. Neuro: No deficits noted. Level of Consciousness is awake, alert, obeys commands, Oriented to person, place, time, situation, Appropriate for age. Cardiovascular: No deficits noted. Patient's skin is warm and dry. Respiratory: No deficits noted. Airway is patent Respiratory effort is even, unlabored, Respiratory pattern is regular, symmetrical. 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 - Infectious Disease History:: Denies. - Social history:: Smoking status: Patient denies any tobacco usage or history of. Screenin:45 [facility] ED Fall Risk Assessment (Adult) History of falling in the last 3 months, cm10 including since admission No falls in past 3 months (0 pts) Confusion or Disorientation No (0 pts) Intoxicated or Sedated No (0 pts) Impaired Gait No (0 pts) Mobility Assist Device Used No (0 pt) Altered Elimination No (0 pt) Score/Fall Risk Level 0 - 2 = Low Risk Oriented to surroundings, Maintained a safe environment, Hourly rounding (assess needs \T\ fall precautionary measures) done. Abuse screen: Denies threats or abuse. Denies injuries from another. Nutritional screening: No deficits noted. Tuberculosis screening: No symptoms or risk factors identified. Vital Signs: 19:43 BP 116 / 75; Pulse 84; Resp 16; Temp 96.5; Pulse Ox 97% on R/A; Weight 81.65 kg; Height cm10 5 ft. 4 in. ; Pain 0/10; 19:43 Body Mass Index 30.90 (81.65 kg, 162.56 cm) cm10 19:43 Pain Scale: Adult cm10 ED Course: 19:20 Patient arrived in ED. jj6 19:20 Wanda Luciano PA-C is PHCP. sb4 19:20 John Malik MD is Attending Physician. sb4 19:44 Triage completed. cm10 19:44 Arm band placed on right wrist. Patient placed in waiting room. cm10 19:45 Patient has correct armband on for positive identification. Provided Education on: ER cm10 process and procedures.. Cardiac monitoring not applicable on this patient. 19:45 No provider procedures requiring assistance completed. Patient did not have IV access cm10 during this emergency room visit. Administered Medications: No medications were administered Medication: 19:45 VIS not applicable for this client. cm10 Outcome: 19:45 Discharged to home ambulatory, cm10 19:45 Condition: good 19:45 Discharge instructions given to patient, Instructed on discharge instructions, follow up and referral plans. Demonstrated understanding of instructions, follow-up care, 19:49 Discharge ordered by . sb4 19:51 Patient left the ED. cm10 Signatures: Lizzie Edouard jjWanda Duarte PA-C PA-C sb4 Sasha Donnelly RN RN cm10 Corrections: (The following items were deleted from the chart) 19:44 19:44 Home Meds: Unable to obtain; cm10 cm10
--- NOTE | 2023-12-16 19:49 | EDPHYS ---
Physician Documentation [facility] Name: Florencia No Age: 23 yrs Sex: Female : 2000 Arrival Date: 12/16/2023 Time: 19:19 Bed IW1 Private MD: ED Physician John Malik HPI: 12/15 20:47 This 23 yrs old Female presents to ER via Ambulatory with complaints of Needs sb4 return to work note. 20:47 Patient states that she had a stomach virus this weekend and had to call into work. She sb4 states that she is feeling much better, tolerating p.o., has no symptoms. She states that she just needs a note to return to work. 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 - Infectious Disease History:: Denies. - Social history:: Smoking status: Patient denies any tobacco usage or history of. ROS: 20:47 Constitutional: Negative for fever, chills, and weight loss, sb4 20:47 All other systems are negative, Exam: 20:47 Constitutional: This is a well developed, well nourished patient who is awake, alert, sb4 and in no acute distress. Head/Face: Normocephalic, atraumatic. Eyes: Extra-ocular motions intact. Periorbital areas with no swelling, redness, or edema. ENT: Mucous membranes moist. Skin: Warm, dry with normal turgor. Normal color with no rashes, no lesions, and no evidence of cellulitis. Vital Signs: 19:43 BP 116 / 75; Pulse 84; Resp 16; Temp 96.5; Pulse Ox 97% on R/A; Weight 81.65 kg; Height cm10 5 ft. 4 in. ; Pain 0/10; 19:43 Body Mass Index 30.90 (81.65 kg, 162.56 cm) cm10 19:43 Pain Scale: Adult cm10 MDM: 19:47 Patient medically screened. sb4 20:47 Data reviewed: vital signs, nurses notes, and as a result, I will discharge patient. sb4 Counseling: I had a detailed discussion with the patient and/or guardian regarding the historical points, exam findings, and any diagnostic results supporting the discharge/admit diagnosis, to return to the emergency department if symptoms worsen or persist or if there are any questions or concerns that arise at home. Administered Medications: No medications were administered Disposition Summary: 12/16/23 19:49 Discharge Ordered Notes: Location: Home sb4 Problem: new sb4 Symptoms: are unchanged sb4 Condition: Stable sb4 Diagnosis - Encounter for general adult medical examination without abnormal findings sb4 Followup: sb4 - With: Private Physician - When: As needed - Reason: Recheck today's complaints, Re-evaluation by your physician Discharge Instructions: - Discharge Summary Sheet cm10 Forms: - Patient Portal Instructions sb4 - Leadership Thank You Letter sb4 - Work release form cm10 Signatures: Wanda Luciano PA-C PA-C sb4 Sasha Donnelly RN RN cm10 Corrections: (The following items were deleted from the chart) 19:44 19:44 Home Meds: Unable to obtain; cm10 cm10
[2023-12-16 23:49] VITALS: BP 116/75; TEMP 96.5; O2SAT 97
== END 2023-12-16 19:51 | disposition home or self-care (01) ==
LOC: ER 19:19
DX: Z02.79 Encounter for issue of other medical certificate (principal)

== ENCOUNTER 2024-03-22 08:36 | Emergency (ER) | payer SELFPAY ==
--- NOTE | 2024-03-22 09:01 | EDPHYS ---
Physician Documentation [facility] Name: Florencia No Age: 23 yrs Sex: Female : 2000 Arrival Date: 03/22/2024 Time: 08:36 Bed 20 Private MD: ED Physician John Malik HPI: 03/22 08:55 This 23 yrs old Female presents to ER via Ambulatory with complaints of roosevelt Shortness Of Breath, Cough. 08:55 The patient has shortness of breath at rest, with light activity. Onset: The roosevelt symptoms/episode began/occurred 2 day(s) ago. Duration: The symptoms are continuous, and are steadily getting worse. The patient's shortness of breath is aggravated by. Associated signs and symptoms: The patient has no apparent associated signs or symptoms. Severity of symptoms: At their worst the symptoms were moderate in the emergency department the symptoms are unchanged. The patient has not experienced similar symptoms in the past. Historical: - Allergies: 08:50 No Known Allergies; ap3 - Home Meds: 08:50 None [Active]; ap3 - PMHx: 08:50 None; ap3 - Immunization history:: Client reports having NOT received the Covid vaccine. Flu vaccine is not up to date. - Infectious Disease History:: Denies. - Social history:: Smoking status: Patient denies any tobacco usage or history of. ROS: 08:56 Constitutional: Negative for fever, chills, and weight loss, Eyes: Negative for injury, roosevelt pain, redness, and discharge, ENT: Negative for injury, pain, and discharge, Neck: Negative for injury, pain, and swelling, Cardiovascular: Negative for chest pain, palpitations, and edema, Abdomen/GI: Negative for abdominal pain, nausea, vomiting, diarrhea, and constipation, Back: Negative for injury and pain, : Negative for injury, bleeding, discharge, and swelling, MS/Extremity: Negative for injury and deformity, Skin: Negative for injury, rash, and discoloration, Neuro: Negative for headache, weakness, numbness, tingling, and seizure, Psych: Negative for depression, anxiety, suicide ideation, homicidal ideation, and hallucinations, Allergy/Immunology: Negative for hives, rash, and allergies, Endocrine: Negative for neck swelling, polydipsia, polyuria, polyphagia, and marked weight changes, Hematologic/Lymphatic: Negative for swollen nodes, abnormal bleeding, and unusual bruising, 08:56 Respiratory: Positive for cough, with no reported sputum, Exam: 08:56 Constitutional: This is a well developed, well nourished patient who is awake, alert, roosevelt and in no acute distress. Head/Face: Normocephalic, atraumatic. Eyes: Pupils equal round and reactive to light, extra-ocular motions intact. Lids and lashes normal. Conjunctiva and sclera are non-icteric and not injected. Cornea within normal limits. Periorbital areas with no swelling, redness, or edema. ENT: Nares patent. No nasal discharge, no septal abnormalities noted. Tympanic membranes are normal and external auditory canals are clear. Oropharynx with no redness, swelling, or masses, exudates, or evidence of obstruction, uvula midline. Mucous membranes moist. Neck: Trachea midline, no thyromegaly or masses palpated, and no cervical lymphadenopathy. Supple, full range of motion without nuchal rigidity, or vertebral point tenderness. No Meningismus. Chest/axilla: Normal chest wall appearance and motion. Nontender with no deformity. No lesions are appreciated. Cardiovascular: Regular rate and rhythm with a normal S1 and S2. No gallops, murmurs, or rubs. Normal PMI, no JVD. No pulse deficits. Abdomen/GI: Soft, non-tender, with normal bowel sounds. No distension or tympany. No guarding or rebound. No evidence of tenderness throughout. Back: No spinal tenderness. No costovertebral tenderness. Full range of motion. Female : Normal external genitalia. Skin: Warm, dry with normal turgor. Normal color with no rashes, no lesions, and no evidence of cellulitis. MS/ Extremity: Pulses equal, no cyanosis. Neurovascular intact. Full, normal range of motion., bilateral aka Neuro: Awake and alert, GCS 15, oriented to person, place, time, and situation. Cranial nerves II-XII grossly intact. Motor strength 5/5 in all extremities. Sensory grossly intact. Cerebellar exam normal. Normal gait. Psych: Awake, alert, with orientation to person, place and time. Behavior, mood, and affect are within normal limits. 08:56 Respiratory: the patient does not display signs of respiratory distress, Respirations: normal, Breath sounds: are clear throughout, Respiratory rate: 17 Vital Signs: 08:48 BP 132 / 93; Pulse 100; Resp 17; Temp 98.5(O); Pulse Ox 99% on R/A; Weight 86.18 kg; ap3 Height 5 ft. 3 in. ; 08:48 Body Mass Index 33.66 (86.18 kg, 160.02 cm) ap3 MDM: 08:43 Medical Screening Exam initiated [facility] 08:58 Differential diagnosis: asthma, Bronchitis pneumonia, reactive airway disease, Unstable roosevelt Angina. Antibiotic administration: The patient is discharged and will get outpatient antibiotics, Zithromax. Differential Diagnosis: Obstructed Airway Bronchitis Influenza Upper Respiratory Infection Pharyngitis Asthma Exacerbation Viral Syndrome Pneumonia. Immunization status:. Data reviewed: vital signs, nurses notes. Consideration of Admission/Observation Escalation of care including admission/observation considered. I considered the following discharge prescriptions or medication management in the emergency department Medications were administered in the Emergency Department. See MAR. Test considered but Not performed: X-ray: no cxr. Administered Medications: No medications were administered Disposition Summary: 03/22/24 09:00 Discharge Ordered Notes: Location: Home [facility] Problem: new [facility] Symptoms: have improved [facility] Condition: Stable [facility] Diagnosis - Acute upper respiratory infection, unspecified roosevelt - Cough roosevelt Followup: roosevelt - With: Private Physician - When: 2 - 3 days - Reason: Recheck today's complaints, Continuance of care, Re-evaluation by your physician Discharge Instructions: - Discharge Summary Sheet roosevelt - Upper Respiratory Infection, Adult roosevelt - Cool Mist Vaporizer roosevelt - Cough, Adult, [id number] roosevelt - Cough, Adult [facility] Forms: - Work release form roosevelt - Medication Reconciliation Form [facility] - Antibiotic Education [facility] - Prescription Opioid Use [facility] - Patient Portal Instructions [facility] - Leadership Thank You Letter [facility] Prescriptions: - Tessalon Perles 100 mg Oral capsule - take 2 capsule ORAL route every 8 hours As needed; 30 capsule; Refills: 0, roosevelt Product Selection Permitted - Zithromax Z-Wyatt 250 mg Oral Tablet - take 1 tablet ORAL route as directed for 5 days Day 1 - take two (2) tablets roosevelt one time. Day 2, 3, 4 , 5 take one (1) tablet once daily.; 6 tablet; Refills: 0, Product Selection Permitted Signatures: Dispatcher [employer] EDMS King, John, MD MD roosevelt Prokisch, Magaly, RN RN ap3
--- NOTE | 2024-03-22 09:01 | ER ---
Nurse's Notes [facility] Name: Florencia No Age: 23 yrs Sex: Female : 2000 Arrival Date: 03/22/2024 Time: 08:36 Bed 20 Private MD: Diagnosis: Acute upper respiratory infection, unspecified;Cough Presentation: 03/22 08:48 Chief complaint: Patient states: she has been having cough, congestion and some ap3 shortness of breath for approx one week. patient reports she was sent home from work and needs a work note. Coronavirus screen: At this time, the client does not indicate any symptoms associated with coronavirus-19. Ebola Screen: No symptoms or risks identified at this time. Initial Sepsis Screen: Does the patient meet any 2 criteria? HR > 90 bpm. No. Patient's initial sepsis screen is negative. Does the patient have a suspected source of infection? No. Patient's initial sepsis screen is negative. Risk Assessment: Do you want to hurt yourself or someone else? Patient reports no desire to harm self or others. Onset of symptoms is unknown. 08:48 Method Of Arrival: Ambulatory ap3 08:48 Acuity: BRUCE 4 ap3 Triage Assessment: 08:50 General: Appears in no apparent distress. Behavior is calm, cooperative, appropriate ap3 for age. Pain: Denies pain. Neuro: Level of Consciousness is awake, alert, obeys commands, Oriented to person, place, time, situation. Cardiovascular: Patient's skin is warm and dry. Respiratory: Reports cough that is Airway is patent Respiratory effort is even, unlabored, Respiratory pattern is regular, symmetrical, Onset: The symptoms/episode began/occurred gradually, the patient has mild shortness of breath. Historical: - Allergies: 08:50 No Known Allergies; ap3 - Home Meds: 08:50 None [Active]; ap3 - PMHx: 08:50 None; ap3 - Immunization history:: Client reports having NOT received the Covid vaccine. Flu vaccine is not up to date. - Infectious Disease History:: Denies. - Social history:: Smoking status: Patient denies any tobacco usage or history of. Screenin:51 [facility] ED Fall Risk Assessment (Adult) History of falling in the last 3 months, ap3 including since admission No falls in past 3 months (0 pts) Confusion or Disorientation No (0 pts) Intoxicated or Sedated No (0 pts) Impaired Gait No (0 pts) Mobility Assist Device Used No (0 pt) Altered Elimination No (0 pt) Score/Fall Risk Level 0 - 2 = Low Risk Oriented to surroundings, Maintained a safe environment, Educated pt \T\ family on fall prevention, incl call for assistance when getting out of bed, Assessed \T\ reinforced patient's understanding of fall precautions, Hourly rounding (assess needs \T\ fall precautionary measures) done, Used ambulatory aids as needed (educated on \T\ assisted with), Used gait belt as appropriate. Abuse screen: Denies threats or abuse. Nutritional screening: No deficits noted. Tuberculosis screening: No symptoms or risk factors identified. Assessment: 09:10 Reassessment: PT DECLINING LABORATORY STUDIES AND XRAY. Cardiovascular: Rhythm is sinus bp rhythm. Respiratory: Airway is patent Respiratory effort is even, unlabored, Breath sounds are clear bilaterally. Vital Signs: 08:48 BP 132 / 93; Pulse 100; Resp 17; Temp 98.5(O); Pulse Ox 99% on R/A; Weight 86.18 kg; ap3 Height 5 ft. 3 in. ; 08:48 Body Mass Index 33.66 (86.18 kg, 160.02 cm) ap3 ED Course: 08:42 Patient arrived in ED. sj2 08:42 John Malik MD is Attending Physician. [facility] 08:50 Triage completed. ap3 08:51 Arm band placed on right wrist. ap3 08:52 Patient has correct armband on for positive identification. Bed in low position. Call ap3 light in reach. Adult w/ patient. Provided Education on: call light education . 08:55 Edi Mcpherson, RN is Primary Nurse. bp 09:10 No provider procedures requiring assistance completed. Patient did not have IV access bp during this emergency room visit. Administered Medications: No medications were administered Medication: 09:10 VIS not applicable for this client. bp Outcome: 09:00 Discharge ordered by . roosevelt 09:10 Discharged to home ambulatory, bp 09:10 Condition: good 09:10 Discharge instructions given to patient, Instructed on discharge instructions, follow up and referral plans. medication usage, Demonstrated understanding of instructions, follow-up care, medications, Prescriptions given X 2, 09:16 Patient left the ED. bp Signatures: John Malik MD MD cha Peltier, Brian RN RN bp Magaly Telles RN RN ap3 Scar Gibson [facility]
[2024-03-22 13:27] VITALS: BP 132/93; TEMP 98.5; O2SAT 99
== END 2024-03-22 09:16 | disposition home or self-care (01) ==
LOC: ER 08:36
DX: J06.9 Acute upper respiratory infection, unspecified (principal); R05.9 Cough, unspecified
CPT/HCPCS: 99283